=== PATIENT | female | born 1950 | race Caucasian/White ===

== ENCOUNTER → 2017-02-25 | Outpatient (CLI) | payer MEDICARE, MEDICAID | LOC: WI 10:11 | PROVIDERS: ATTEND Internal Medicine | DX: Z12.31 Encounter for screening mammogram for malignant neoplasm of breast (principal) | CPT/HCPCS: 77067; G0202 ==

== ENCOUNTER → 2017-03-11 | Outpatient (CLI) | payer MEDICARE, MEDICAID | LOC: RAD 09:41 | PROVIDERS: ATTEND Orthopaedic Surgery | DX: M54.2 Cervicalgia (principal); M79.671 Pain in right foot; M25.551 Pain in right hip | CPT/HCPCS: 78306; A9503; Q9969 ==

== ENCOUNTER 2017-03-17 05:41 | Observation (INO) | payer MEDICARE, MEDICAID ==
[2017-03-17] MEDS ORDERED: ASPIRIN 81 MG TABLET, CHEWABLE PO ONE (05:42)
[2017-03-17 06:14] LABS: ABSOLUTE BASOPHILS # (AUTO) 0.1 10^3/uL (0.0-0.2); ABSOLUTE EOSINOPHILS # (AUTO) 0.4 10^3/uL (0.0-0.6); ABSOLUTE LYMPHOCYTES (AUTO) 1.8 10^3/uL (0.5-4.7); ABSOLUTE MONOCYTES (AUTO) 0.6 10^3/uL (0.1-1.4); ABSOLUTE NEUT (AUTO) 3.3 10^3/uL (1.7-8.2); BASOPHILS % (AUTO) 0.8 % (0-2); EOSINOPHILS % (AUTO) 6.5 % (0-6); HEMATOCRIT 35.5 % (36.0-47.0); HEMOGLOBIN 11.8 g/dL (12.0-15.5); HGB HCT DIFFERENCE -0.1; LYMPHOCYTES % (AUTO) 28.5 % (13-45); MEAN CORPUSCULAR HEMOGLOBIN 29.4 pg (27.0-33.4); MEAN CORPUSCULAR HGB CONC 33.1 g/dL (32.0-36.0); MEAN CORPUSCULAR VOLUME 89 fl (80-97); RED CELL DISTRIBUTION WIDTH 12.8 % (11.5-14.0); SEGMENTED NEUTROPHILS % (AUTO) 54.2 % (42-78); WHITE BLOOD COUNT 6.2 10^3/uL (4.0-10.5)
[2017-03-17 06:21] LABS: PROTHROMBIN TIME 13.7 SEC (11.4-15.4)
[2017-03-17] MEDS ORDERED: MAG HYDROX/AL HYDROX/SIMETH SUSP 30 ML UDCUP PO ONE (06:28)
[2017-03-17] MEDS ORDERED: METOCLOPRAMIDE HCL ORAL SOLN 10 MG/10 ML UDCUP PO ONE (06:28)
[2017-03-17] MEDS ORDERED: LIDOCAINE 2% VISCOUS SOLN 20 ML UDCUP PO ONE (06:28)
[2017-03-17 06:36] LABS: ALANINE AMINOTRANSFERASE 33 U/L (9-52); ALBUMIN 3.6 g/dL (3.5-5.0); ALKALINE PHOSPHATASE 83 U/L (38-126); ANION GAP 12 (5-19); ASPARTATE AMINO TRANSFERASE 42 U/L (14-36); BILIRUBIN,DIRECT 0.3 mg/dL (0.0-0.4); BILIRUBIN,TOTAL 0.5 mg/dL (0.2-1.3); BLOOD UREA NITROGEN 18 mg/dL (7-20); CALCIUM 9.1 mg/dL (8.4-10.2); CARBON DIOXIDE 25 mmol/L (22-30); CHLORIDE 107 mmol/L (98-107); CREATINE KINASE 267 U/L (30-135); CREATININE RESULT 0.74 mg/dL (0.52-1.25); GLUCOSE 103 mg/dL (75-110); POTASSIUM 3.3 mmol/L (3.6-5.0); SODIUM 144.2 mmol/L (137-145); TOTAL PROTEIN 6.1 g/dL (6.3-8.2)
[2017-03-17 06:37] LABS: LIPASE 91.9 U/L (23-300); MAGNESIUM 2.1 mg/dL (1.6-2.3)
--- NOTE | 2017-03-17 06:37 | ER Document Report ---
ED General - General Chief Complaint: Leg Pain Stated Complaint: CHEST PAIN TRAVEL OUTSIDE OF THE [place] IN LAST 30 DAYS: No - HPI Patient complains to provider of: left chest pressure Notes: Patient presents today for evaluation of left chest pressure. Patient states the pain woke her up from sleep. Patient is unaware what time she was awoken the states is been approximately greater than hour. Denies a history for problems in the past. The stay she's had stress testing has been negative performed by local temporary data entry clerk Dr. Moura however this is been many years ago. Patient does state she has an arrhythmia but is on no medications for it. Patient does have a history of acid reflux recent EGD and colonoscopy patient also has a history of bipolar disease with schizophrenia. Patient is also complaining of right leg pain. Patient is unclear she has a history of DVT or PE in the past. Quick review the patient's past medical history does show history of DVT. Otherwise patient states no relief of Nitropaste is in no obvious distress upon my evaluation. - Related Data Allergies/Adverse Reactions: divalproex sodium [From Depakote] Allergy (Intermediate, Verified 07/11/16 15:53 ) swelling of ankles/feet hydroxyzine pamoate [From Vistaril] Allergy (Intermediate, Verified 07/11/16 15: 53) rash/itch nalbuphine HCl [From Nubain] Allergy (Intermediate, Verified 07/11/16 15:53) rash/itch levofloxacin [From Levaquin] Allergy (Mild, Verified 07/11/16 15:53) itch/reddness Past Medical History - Social History Smoking Status: Unknown if Ever Smoked Chew tobacco use (# tins/day): No Frequency of alcohol use: None Drug Abuse: None Family History: Arthritis, CAD, CVA, DM, Hyperlipidemia, Hypertension, Malignancy, Thyroid Disfunction - Past Medical History Cardiac Medical History: Reports: Hx Atrial Fibrillation - Dx 2005, denies Rx, Cardiac note, Dr Moura does not include A fib Dx, Hx DVT, Hx Hypercholesterolemia, Hx Hypertension - NO MEDS PRESENTLY SINCE 2013 Denies: Hx Congestive Heart Failure, Hx Coronary Artery Disease, Hx Heart Attack, Hx Peripheral Vascular Disease, Hx Pulmonary Embolism, Hx Heart Murmur Pulmonary Medical History: Reports: Hx Asthma, Hx Bronchitis, Hx COPD - Dx'ed > 14 years ago, however in [place] refured Dx in May 2013, 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 Denies: Hx Cerebrovascular Accident, Hx Seizures Renal/ Medical History: Denies: Hx End Stage Renal Disease, Hx Kidney Stones, Hx Peritoneal Dialysis Malignancy Medical History: Denies: Hx Leukemia, Hx Lung Cancer GI Medical History: Reports: Hx Gastroesophageal Reflux Disease. Denies: Hx Crohn's Disease - denies, Hx Hepatitis, Hx Hiatal Hernia, Hx Irritable Bowel, Hx Liver Failure, Hx Ulcer Musculoskeltal Medical History: Reports Hx Arthritis, Denies Hx Fibromyalgia, Denies Hx Muscular Dystrophy, Reports Hx Musculoskeletal Deformity, Reports Hx Musculoskeletal Trauma Psychiatric Medical History: Reports: Hx Bipolar Disorder - Dx'ed 1993, Hx Depression, Hx Schizophrenia - Dx'ed 1999 Denies: Hx Post Traumatic Stress Disorder Traumatic Medical History: Denies: Hx Fractures Infectious Medical History: Denies: Hx Hepatitis, Hx HIV Past Surgical History: Reports: Hx Abdominal Surgery - 2 HERNIA REPAIRS, Hx Appendectomy - incidental with gastric bypass, Hx Gastric Bypass Surgery - 1985 , revision 2009, Hx Herniorrhaphy - multiple ventral/umbilical, mesh inserted with last surgical intervention, Hx Nose Surgery, Hx Open Heart Surgery - CATHS X 2, Hx Orthopedic Surgery - back, shoulder, bilateral knee replacement. Denies : Hx Bowel Surgery, Hx Section, Hx Cholecystectomy, Hx Colostomy, Hx Coronary Artery Bypass Graft, Hx Hysterectomy, Hx Mastectomy, Hx Pacemaker, Hx Tonsillectomy, Hx Tubal Ligation - Immunizations Immunizations up to date: Yes Hx Diphtheria, Pertussis, Tetanus Vaccination: No Hx Pneumococcal Vaccination: 12/01/10 Review of Systems - Review of Systems Constitutional: No symptoms reported EENT: No symptoms reported Cardiovascular: Chest pain Respiratory: No symptoms reported Gastrointestinal: No symptoms reported Genitourinary: No symptoms reported Female Genitourinary: No symptoms reported Musculoskeletal: No symptoms reported Skin: No symptoms reported Hematologic/Lymphatic: No symptoms reported Neurological/Psychological: No symptoms reported -: Yes All other systems reviewed and negative Physical Exam - Vital signs Vitals: Temp Resp Pulse Ox 98.7 F 13 95 03/17/17 05:46 03/17/17 05:46 03/17/17 05:46 Interpretation: Normal - General General appearance: Appears well, Alert - HEENT Head: Normocephalic, Atraumatic Eyes: Normal Pupils: PERRL - Respiratory Respiratory status: No respiratory distress Chest status: Tender - Tenderness to palpation of the chest Breath sounds: Normal Chest palpation: Normal - Cardiovascular Rhythm: Regular Heart sounds: Normal auscultation Murmur: No - Abdominal Inspection: Normal Distension: No distension Bowel sounds: Normal Tenderness: Nontender Organomegaly: No organomegaly - Back Back: Normal, Nontender - Extremities General upper extremity: Normal inspection, Nontender, Normal color, Normal ROM , Normal temperature General lower extremity: Normal inspection, Nontender, Normal color, Normal ROM , Normal temperature, Normal weight bearing, Other - There is no size discrepancy edema bilateral 1+. Patient does have tenderness to palpation of the right calf. - Neurological Neuro grossly intact: Yes Cognition: Normal Orientation: AAOx4 Gerry Coma Scale Eye Opening: Spontaneous [place] Coma Scale Verbal: Oriented [place] Coma Scale Motor: Obeys Commands Gerry Coma Scale Total: 15 Speech: Normal Motor strength normal: LUE, RUE, LLE, RLE Sensory: Normal - Psychological Associated symptoms: Normal affect, Normal mood - Skin Skin Temperature: Warm Skin Moisture: Dry Skin Color: Normal Course - Re-evaluation Re-evalutation: 03/17/17 08:43 EKG shows no acute pathology. Troponins negative. Patient's d-dimer was elevated therefore due to the patient's complaint of chest pain and leg pain patient with a CTA abdomen. This was both negative. Patient will be admitted I did discuss with her PCP Dr. Prado - Vital Signs Vital signs: Temp Pulse Resp BP Pulse Ox 98.7 F 16 134/76 H 100 03/17/17 05:46 03/17/17 07:21 03/17/17 07:21 03/17/17 07:21 - Laboratory Result Diagrams: 03/17/17 06:00 03/17/17 06:00 Laboratory results interpreted by me: 03/17/17 03/17/17 03/17/17 06:00 06:00 06:00 Hgb 11.8 L Hct 35.5 L Eosinophils % 6.5 H D-Dimer 0.80 H Potassium 3.3 L AST 42 H Creatine Kinase 267 H Total Protein 6.1 L Discharge - Discharge Clinical Impression: Right leg pain, Hypokalemia Chest pain Qualifiers: Chest pain type: unspecified Qualified Code(s): R07.9 - Chest pain, unspecified Condition: Fair Disposition: ADMITTED OBSERVATION Admitting Provider: Avinash Unit Admitted: Telemetry Referrals: SIMEON PRADO MD [Primary Care Provider] - Follow up as needed
[2017-03-17 06:49] LABS: TROPONIN I < 0.012 ng/mL
[2017-03-17] MEDS ORDERED: POTASSIUM CHLORIDE 10 MEQ TABLET.SA PO ONE (07:05)
--- NOTE | 2017-03-17 08:44 | EKG REPORT ---
SEVERITY:- ABNORMAL ECG - SINUS ARRHYTHMIA, RATE 56-97 BORDERLINE LEFT AXIS DEVIATION CONSIDER ANTERIOR INFARCT BORDERLINE T ABNORMALITIES, ANTERIOR LEADS : Confirmed by: Any Fuller 17-Mar-2017 08:43:28
[2017-03-17 08:48] LABS: APPEARANCE,URINE CLEAR; BILIRUBIN,URINE NEGATIVE (NEGATIVE); GLUCOSE, URINE NEGATIVE (NEGATIVE); KETONES,URINE NEGATIVE (NEGATIVE); LEUKOCYTE ESTERASE,URINE SMALL (NEGATIVE); NITRITE,URINE NEGATIVE (NEGATIVE); PROTEIN,URINE NEGATIVE (NEGATIVE); URINE SPECIFIC GRAVITY 1.005; UROBILINOGEN,URINE NEGATIVE mg/dL (<2.0)
[2017-03-17 08:49] LABS: URINE BARBITURATES SCREEN NEGATIVE; URINE METHADONE SCREEN NEGATIVE; URINE OPIATES LOW NEGATIVE; URINE PHENCYCLIDINE SCREEN NEGATIVE
--- NOTE | 2017-03-17 12:08 | XCELERA REPORT ---
[address] [address] Lower Extremity Venous Evaluation Name: DANNY BAPTISTE Age: 67 yrs Gender: Female : 1950 Patient Status: Emergency Patient Location: ER Study Date: 03/17/2017 08:22 AM Procedure: Color flow and duplex imaging of the veins of the right lower extremity as well as the left Common Femoral vein. Reason For Study: pain right leg / Hx clots Ordering Physician: JAYNE MORALES Performed By: Allen Barrientos Right Sided Venous Evaluation Subcutaneous edema noted. Normal vessel filling wall to wall, compression and augmentation as well as Colour flow down to the infrageniculate veins. Left Sided Venous Evaluation The left common femoral vein is fully compressible. Spontaneous and phasic flow is present in the left common femoral vein. Interpretation Summary No duplex evidence of DVT or obstruction in the right lower extremity nor in the left Common Femoral vein. : JAYNE MORALES > Kb Garcia
[2017-03-17] MEDS ORDERED: HYDROCODONE/ACETAMINOPHEN 5-325 MG TABLET PO ONE (15:45)
[2017-03-17] MEDS ORDERED: OXYCODONE HCL IR 5 MG TABLET PO ONE (15:45)
[2017-03-17] MEDS ORDERED: HYDROCODONE/ACETAMINOPHEN 10-325 MG TABLET ONE (16:11)
[2017-03-17] MEDS ORDERED: HYDROCODONE/ACETAMINOPHEN 10-325 MG TABLET PO ONE (16:15)
[2017-03-17] MEDS ORDERED: ALBUTEROL SULFATE HFA (90 MCG/PUFF) 8 GM MDI (1 MDI/ER DISP) IH PRN (19:50)
[2017-03-17] MEDS ORDERED: (PENDING PHARMACY ID) (Oxycodone Hcl/Acetaminophen [Percocet 10-325 Mg Tablet] 1 TAB) PO PRN (19:50)
--- NOTE | 2017-03-17 19:50 | PDOC H&P ---
History of Present Illness Admission Date/PCP: 03/17/17 14:34 SIMEON PRADO MD History of Present Illness: DANNY BAPTISTE is a 67 year old female, she has history of generalized osteoarthritis with bilateral knee replacement, hip replacement and shoulder replacement she can emergency room because of chest pain ,leg pain emergency room she had CTA chest done which was negative for pulmonary embolus she also had venous Doppler done and it was negative for DVT. The emergency room physician want her admitted because of the chest pain to rule out acute coronary syndrome , very unlikely in this case Past Medical History Cardiac Medical History: Reports: Atrial Fibrillation - Dx 2005, denies Rx, Cardiac note, Dr Moura does not include A fib Dx, DVT, Hyperlipidema, Hypertension - NO MEDS PRESENTLY SINCE 2013 Pulmonary Medical History: Reports: Asthma, Bronchitis, Chronic Obstructive Pulmonary Disease (COPD) - Dx'ed > 14 years ago, however MD in [place] refured Dx in May 2013, Tuberculosis - +PPD r/t exposure to [id number] with TB, meds x 6 months 1980 Neurological Medical History: Reports: Migraine GI Medical History: Reports: Gastroesophageal Reflux Disease Musculoskeltal Medical History: Reports: Arthritis Psychiatric Medical History: Reports: Bipolar Disorder - Dx'ed 1993, Depression Hematology: Reports: Anemia Past Surgical History Past Surgical History: Reports: Appendectomy - incidental with gastric bypass, Gastric Bypass Surgery - 1985, revision 2009, Herniorrhaphy - multiple ventral/ umbilical, mesh inserted with last surgical intervention, Orthopedic Surgery - back, shoulder, bilateral knee replacement Social History Smoking Status: Never Smoker Frequency of Alcohol Use: Rare Hx Recreational Drug Use: No Hx Prescription Drug Abuse: No Family History Family History: Arthritis, CAD, CVA, DM, Hyperlipidemia, Hypertension, Malignancy, Thyroid Disfunction Parental Family History Reviewed: Yes Children Family History Reviewed: Yes Sibling(s) Family History Reviewed.: Yes Medication/Allergy Home Medications: Albuterol Sulfate [Ventolin HFA MDI 18 GM] 2 puff IH Q4HP PRN 03/17/17 Alprazolam [Xanax 0.5 mg Tablet] 0.5 mg PO BID 03/17/17 Atorvastatin Calcium [Lipitor 10 mg Tablet] 10 mg PO QPM 03/17/17 Cholecalciferol (Vitamin D3) [Vitamin D3 1000 Unit Tablet] 1,000 unit PO DAILY 03/17/17 Cyclosporine 0.05% Oph Emulsio [Restasis 0.05% Oph Emulsion Pf 0.4 ml] 1 drop OU BID 03/17/17 Diflucan/Lidocaine 1 applic TOP DAILYP PRN 03/17/17 Diphenhydramine HCl [Wal-Sleep Z] 25 mg PO TIDP PRN 03/17/17 Fluoxetine HCl [Prozac 20 mg Capsule] 20 mg PO QAM 03/17/17 Furosemide [Lasix] 40 mg PO DAILY 03/17/17 Gabapentin [Neurontin 300 mg Capsule] 300 mg PO Q8 03/17/17 Levetiracetam [Keppra 500 mg Tablet] 500 mg PO Q12 03/17/17 Oxycodone HCl/Acetaminophen [Percocet 10-325 mg Tablet] 1 tab PO Q6HP PRN Pantoprazole Sodium [Protonix] 40 mg PO QAM 03/17/17 Potassium Chloride [K-Tab ER] 20 meq PO DAILY 03/17/17 Topiramate [Topamax 100 mg Tablet] 100 mg PO QAM 03/17/17 Allergies/Adverse Reactions: divalproex sodium [From Depakote] Allergy (Intermediate, Verified 07/11/16 15:53 ) swelling of ankles/feet hydroxyzine pamoate [From Vistaril] Allergy (Intermediate, Verified 07/11/16 15: 53) rash/itch nalbuphine HCl [From Nubain] Allergy (Intermediate, Verified 07/11/16 15:53) rash/itch levofloxacin [From Levaquin] Allergy (Mild, Verified 07/11/16 15:53) itch/reddness Review of Systems Constitutional: ABSENT: chills, fever(s), headache(s), weight gain, weight loss Eyes: ABSENT: visual disturbances Ears: ABSENT: hearing changes Cardiovascular: PRESENT: chest pain Respiratory: ABSENT: cough, hemoptysis Gastrointestinal: ABSENT: abdominal pain, constipation, diarrhea, hematemesis, hematochezia, nausea, vomiting Genitourinary: ABSENT: dysuria, hematuria Musculoskeletal: ABSENT: joint swelling Integumentary: ABSENT: rash, wounds Neurological: ABSENT: abnormal gait, abnormal speech, confusion, dizziness, focal weakness, syncope Psychiatric: ABSENT: anxiety, depression, homidical ideation, suicidal ideation Endocrine: ABSENT: cold intolerance, heat intolerance, menstrual abnormalities, polydipsia, polyuria Hematologic/Lymphatic: ABSENT: easy bleeding, easy bruising, lymphadenopathy Physical Exam Vital Signs: Temp Pulse Resp BP Pulse Ox 98.6 F 72 20 135/69 H 100 03/17/17 18:44 03/17/17 18:44 03/17/17 18:44 03/17/17 18:44 03/17/17 18:44 Intake & Output 03/16/17 03/17/17 03/18/17 06:59 06:59 06:59 Weight 91.1 kg General appearance: PRESENT: no acute distress, well-developed, well-nourished Head exam: PRESENT: atraumatic, normocephalic Eye exam: PRESENT: conjunctiva pink, EOMI, PERRLA. ABSENT: scleral icterus Ear exam: PRESENT: normal external ear exam Mouth exam: PRESENT: moist, tongue midline Neck exam: PRESENT: full ROM Respiratory exam: PRESENT: clear to auscultation miguel Cardiovascular exam: PRESENT: RRR, +S1, +S2 Pulses: PRESENT: normal dorsalis pedis pul, +2 pedal pulses bilateral Vascular exam: PRESENT: normal capillary refill GI/Abdominal exam: PRESENT: normal bowel sounds, soft Rectal exam: PRESENT: deferred Neurological exam: PRESENT: alert, awake, oriented to person, oriented to place , oriented to time, oriented to situation, CN II-XII grossly intact Psychiatric exam: PRESENT: appropriate affect, normal mood Skin exam: PRESENT: dry, intact, warm Results Impressions: Chest X-Ray 03/17/17 05:42 IMPRESSION: NO ACUTE RADIOGRAPHIC FINDING IN THE CHEST. Chest/Abdomen CTA 03/17/17 07:04 IMPRESSION: No acute thoracic abnormality. Specifically, no evidence of pulmonary embolus or lung infiltrate. Assessment & Plan - Diagnosis (1) Chest pain Qualifiers: Chest pain type: unspecified Qualified Code(s): R07.9 - Chest pain, unspecified Is this a current diagnosis for this admission?: YesPlan: She is not she is admitted for observation and management
[2017-03-17] MEDS ORDERED: OXYCODONE HCL IR 5 MG TABLET PO PRN (20:47)
[2017-03-17] MEDS: ATORVASTATIN CALCIUM 10 MG TABLET PO SCH (22:45)
[2017-03-17] MEDS: GABAPENTIN 300 MG CAPSULE PO SCH (22:45)
[2017-03-17] MEDS: ALPRAZOLAM 0.5 MG TABLET PO SCH (22:45)
[2017-03-17] MEDS: LEVETIRACETAM 500 MG TABLET PO SCH (22:45)
[2017-03-17] MEDS: OXYCODONE-ACETAMINOPHEN 5-325 MG TABLET PO PRN (22:45)
[2017-03-17] MEDS: POTASSI CL 20 MEQ/NS 1L 1,000 ML IV PRN (23:58)
[2017-03-18] MEDS: GABAPENTIN 300 MG CAPSULE PO SCH ×3 (05:43→21:10)
[2017-03-18] MEDS: OXYCODONE-ACETAMINOPHEN 5-325 MG TABLET PO PRN ×3 (05:47→21:10)
[2017-03-18] MEDS: ALPRAZOLAM 0.5 MG TABLET PO SCH ×2 (09:10→21:09)
[2017-03-18] MEDS: CYCLOSPORINE 0.05% OPH EMULSIO 0.4 ML DROPERETTE OU SCH ×2 (09:10→17:19)
[2017-03-18] MEDS: FLUOXETINE HCL 20 MG CAPSULE PO SCH (09:10)
[2017-03-18] MEDS: CHOLECALCIFEROL (D3) 1,000 UNIT TABLET PO SCH (09:10)
[2017-03-18] MEDS: TOPIRAMATE 100 MG TABLET PO SCH (09:10)
[2017-03-18] MEDS: LANSOPRAZOLE 30 MG TAB.RAP.DR PO SCH (09:11)
[2017-03-18] MEDS: LEVETIRACETAM 500 MG TABLET PO SCH ×2 (09:11→21:09)
[2017-03-18] MEDS: POTASSI CL 20 MEQ/NS 1L 1,000 ML IV PRN (13:44)
[2017-03-18 15:11] LABS: ALANINE AMINOTRANSFERASE 29 U/L (9-52); ALBUMIN 3.9 g/dL (3.5-5.0); ALKALINE PHOSPHATASE 80 U/L (38-126); ANION GAP 10 (5-19); ASPARTATE AMINO TRANSFERASE 30 U/L (14-36); BILIRUBIN,DIRECT 0.1 mg/dL (0.0-0.4); BILIRUBIN,TOTAL 0.4 mg/dL (0.2-1.3); BLOOD UREA NITROGEN 8 mg/dL (7-20); CALCIUM 9.5 mg/dL (8.4-10.2); CARBON DIOXIDE 24 mmol/L (22-30); CHLORIDE 111 mmol/L (98-107); CREATININE RESULT 0.72 mg/dL (0.52-1.25); GLUCOSE 119 mg/dL (75-110); POTASSIUM 4.6 mmol/L (3.6-5.0); SODIUM 145.1 mmol/L (137-145); TOTAL PROTEIN 6.2 g/dL (6.3-8.2)
[2017-03-18] MEDS: ATORVASTATIN CALCIUM 10 MG TABLET PO SCH (21:10)
[2017-03-19] MEDS: OXYCODONE-ACETAMINOPHEN 5-325 MG TABLET PO PRN ×3 (04:08→18:05)
[2017-03-19] MEDS: POTASSI CL 20 MEQ/NS 1L 1,000 ML IV PRN (04:15)
[2017-03-19] MEDS: GABAPENTIN 300 MG CAPSULE PO SCH ×2 (05:19→14:45)
[2017-03-19] MEDS: TOPIRAMATE 100 MG TABLET PO SCH (07:39)
[2017-03-19] MEDS: LANSOPRAZOLE 30 MG TAB.RAP.DR PO SCH (09:34)
[2017-03-19] MEDS: CHOLECALCIFEROL (D3) 1,000 UNIT TABLET PO SCH (09:34)
[2017-03-19] MEDS: ALPRAZOLAM 0.5 MG TABLET PO SCH (09:34)
[2017-03-19] MEDS: LEVETIRACETAM 500 MG TABLET PO SCH (09:34)
[2017-03-19] MEDS: FLUOXETINE HCL 20 MG CAPSULE PO SCH (09:34)
[2017-03-19] MEDS: CYCLOSPORINE 0.05% OPH EMULSIO 0.4 ML DROPERETTE OU SCH ×2 (09:35→17:22)
--- NOTE | 2017-03-19 14:27 | PDOC DISCHARGE SUMMARY ---
General - Admit/Disc Date/PCP Admission Date/Primary Care Provider: 03/17/17 14:34 SIMEON PRADO MD Discharge Date: 03/19/17 - Discharge Diagnosis (1) Chest pain Is this a current diagnosis for this admission?: Yes - Additional Information Discharge Diet: As Tolerated Discharge Activity: Activity As Tolerated Home Medications: Albuterol Sulfate [Ventolin HFA MDI 18 GM] 2 puff IH Q4HP PRN 03/17/17 Alprazolam [Xanax 0.5 mg Tablet] 0.5 mg PO BID 03/17/17 Atorvastatin Calcium [Lipitor 10 mg Tablet] 10 mg PO QPM 03/17/17 Cholecalciferol (Vitamin D3) [Vitamin D3 1000 Unit Tablet] 1,000 unit PO DAILY 03/17/17 Cyclosporine 0.05% Oph Emulsio [Restasis 0.05% Oph Emulsion Pf 0.4 ml] 1 drop OU BID 03/17/17 Fluoxetine HCl [Prozac 20 mg Capsule] 20 mg PO QAM 03/17/17 Furosemide [Lasix] 40 mg PO DAILY 03/17/17 Gabapentin [Neurontin 300 mg Capsule] 300 mg PO Q8 03/17/17 Levetiracetam [Keppra 500 mg Tablet] 500 mg PO Q12 03/17/17 Oxycodone HCl/Acetaminophen [Percocet 10-325 mg Tablet] 1 tab PO Q6HP PRN Pantoprazole Sodium [Protonix] 40 mg PO QAM 03/17/17 Potassium Chloride [K-Tab ER] 20 meq PO DAILY 03/17/17 Topiramate [Topamax 100 mg Tablet] 100 mg PO QAM 03/17/17 History of Present Illness History of Present Illness: DANNY BAPTISTE is a 67 year old female, she has history of generalized osteoarthritis with bilateral knee replacement, hip replacement and shoulder replacement she can emergency room because of chest pain ,leg pain emergency room she had CTA chest done which was negative for pulmonary embolus she also had venous Doppler done and it was negative for DVT. The emergency room physician want her admitted because of the chest pain to rule out acute coronary syndrome , very unlikely in this case Hospital Course Hospital Course: Patient was admitted because of chest pain, 3 sets of cardiac enzymes were negative for acute LA Physical Exam Vital Signs: Temp Pulse Resp BP Pulse Ox 98.7 F 82 16 143/78 H 98 03/19/17 11:07 03/19/17 14:00 03/19/17 11:07 03/19/17 11:07 03/19/17 11:07 Intake & Output 03/18/17 03/19/17 03/20/17 06:59 06:59 06:59 Intake Total 620 3209 Output Total 900 2650 Balance -280 559 Weight 93.4 kg 93.1 kg General appearance: PRESENT: no acute distress Eye exam: PRESENT: PERRLA Respiratory exam: PRESENT: clear to auscultation miguel Cardiovascular exam: PRESENT: +S1, +S2 GI/Abdominal exam: PRESENT: soft Neurological exam: PRESENT: alert Results Laboratory Results: 03/18/17 14:31 03/18/17 14:31 Sodium 145.1 H Potassium 4.6 Chloride 111 H Carbon Dioxide 24 Anion Gap 10 BUN 8 Creatinine 0.72 Est GFR ( Amer) > 60 Est GFR (Non-Af Amer) > 60 Glucose 119 H Calcium 9.5 Total Bilirubin 0.4 AST 30 ALT 29 Alkaline Phosphatase 80 Total Protein 6.2 L Albumin 3.9 03/18/17 15:15 Nasophary (Mrsa Only) MRSA Surveillance Culture - Final MRSA RECOVERED Impressions: Chest X-Ray 03/17/17 05:42 IMPRESSION: NO ACUTE RADIOGRAPHIC FINDING IN THE CHEST. Chest/Abdomen CTA 03/17/17 07:04 IMPRESSION: No acute thoracic abnormality. Specifically, no evidence of pulmonary embolus or lung infiltrate.
[2017-03-19] MEDS ORDERED: ALBUTEROL SULFATE HFA (90 MCG/PUFF) 200 PUFF/8.5 GM MDI IH PRN (17:00)
[2017-03-19 17:54] VITALS: BP 133/77
== END 2017-03-19 18:57 | disposition home health service (06) ==
LOC: ER 05:41 → UNDOADMOB 08:51 → EH 08:51 → 4S 11:09 → EH 11:09 → 4S 14:34
PROVIDERS: ADMIT Internal Medicine; ATTEND Internal Medicine
DX: R07.89 Other chest pain (principal); M15.9 Polyosteoarthritis, unspecified; M79.604 Pain in right leg; R60.9 Edema, unspecified; E87.6 Hypokalemia; J45.909 Unspecified asthma, uncomplicated; Z96.653 Presence of artificial knee joint, bilateral; Z96.649 Presence of unspecified artificial hip joint; Z86.11 Personal history of tuberculosis; Z98.84 Bariatric surgery status; Z90.49 Acquired absence of other specified parts of digestive tract; Z82.49 Family history of ischemic heart disease and other diseases of the circulatory system; Z79.899 Other long term (current) drug therapy; Z96.612 Presence of left artificial shoulder joint; Z96.611 Presence of right artificial shoulder joint; Z98.890 Other specified postprocedural states; Z80.9 Family history of malignant neoplasm, unspecified
CPT/HCPCS: 93005; 99285; 36415 ×2; 82553; 82962; 82550; 83690; 83735; 85025; 85610; 80053 ×2; 81001; 84484; 80307; 85379; 83880; 93971 ×2; 71010; 71275; 93010; A9270 ×26; J3490; J3480 ×3; G0378

== ENCOUNTER 2017-03-24 12:43 | Emergency (ER) | payer MEDICARE, MEDICAID ==
[2017-03-24] MEDS ORDERED: MECLIZINE HCL 25 MG TABLET PO ONE (14:37)
--- NOTE | 2017-03-24 14:37 | ER Document Report ---
ED Medical Screen (RME) - General Chief Complaint: Pain All Over Stated Complaint: FALL RIGHT HIP PAIN Mode of Arrival: Wheelchair Information source: Patient Notes: 67-year-old female presents with very vague complaints of neck pain or vertigo hip pain. Patient's presenting complaint was trip and fall however she did not provide this information to me, but fact speaks about her neck injury from 1984. I am unable to determine the patient's specific complaints lab work has been ordered I have greeted and performed a rapid initial assessment of this patient. A comprehensive ED assessment and evaluation of the patient, analysis of test results and completion of the medical decision making process will be conducted by additional ED providers. PHYSICAL EXAMINATION: GENERAL: Patient in wheelchair holding head complaining of vertigo HEAD: Atraumatic, normocephalic. EYES: Pupils equal round extraocular movements intact, conjunctiva are normal. ENT: Nares patent NECK: Normal range of motion LUNGS: No respiratory distress Musculoskeletal: Mild hip pain right foot in boot NEUROLOGICAL: Normal speech, normal gait. PSYCH: Normal mood, normal affect. SKIN: Warm, Dry, normal turgor, no rashes or lesions noted. TRAVEL OUTSIDE OF THE [place] IN LAST 30 DAYS: No - Related Data Allergies/Adverse Reactions: divalproex sodium [From Depakote] Allergy (Intermediate, Verified 07/11/16 15:53 ) swelling of ankles/feet hydroxyzine pamoate [From Vistaril] Allergy (Intermediate, Verified 07/11/16 15: 53) rash/itch nalbuphine HCl [From Nubain] Allergy (Intermediate, Verified 07/11/16 15:53) rash/itch levofloxacin [From Levaquin] Allergy (Mild, Verified 07/11/16 15:53) itch/reddness Past Medical History - Past Medical History Cardiac Medical History: Reports: Hx Atrial Fibrillation - Dx 2005, denies Rx, Cardiac note, Dr Moura does not include A fib Dx, Hx DVT, Hx Hypercholesterolemia, Hx Hypertension - NO MEDS PRESENTLY SINCE 2013 Denies: Hx Congestive Heart Failure, Hx Coronary Artery Disease, Hx Heart Attack, Hx Peripheral Vascular Disease, Hx Pulmonary Embolism, Hx Heart Murmur Pulmonary Medical History: Reports: Hx Asthma, Hx Bronchitis, Hx COPD - Dx'ed > 14 years ago, however in [place] refured Dx in May 2013, 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 Denies: Hx Cerebrovascular Accident, Hx Seizures Renal/ Medical History: Denies: Hx End Stage Renal Disease, Hx Kidney Stones, Hx Peritoneal Dialysis Malignancy Medical History: Denies: Hx Leukemia, Hx Lung Cancer GI Medical History: Reports: Hx Gastroesophageal Reflux Disease. Denies: Hx Crohn's Disease - denies, Hx Hepatitis, Hx Hiatal Hernia, Hx Irritable Bowel, Hx Liver Failure, Hx Ulcer Musculoskeltal Medical History: Reports Hx Arthritis, Denies Hx Fibromyalgia, Denies Hx Muscular Dystrophy, Reports Hx Musculoskeletal Deformity, Reports Hx Musculoskeletal Trauma Psychiatric Medical History: Reports: Hx Bipolar Disorder - Dx'ed 1993, Hx Depression, Hx Schizophrenia - Dx'ed 1999 Denies: Hx Post Traumatic Stress Disorder Traumatic Medical History: Denies: Hx Fractures Infectious Medical History: Denies: Hx Hepatitis, Hx HIV Past Surgical History: Reports: Hx Abdominal Surgery - 2 HERNIA REPAIRS, Hx Appendectomy - incidental with gastric bypass, Hx Gastric Bypass Surgery - 1985 , revision 2009, Hx Herniorrhaphy - multiple ventral/umbilical, mesh inserted with last surgical intervention, Hx Nose Surgery, Hx Open Heart Surgery - CATHS X 2, Hx Orthopedic Surgery - back, shoulder, bilateral knee replacement. Denies : Hx Bowel Surgery, Hx Section, Hx Cholecystectomy, Hx Colostomy, Hx Coronary Artery Bypass Graft, Hx Hysterectomy, Hx Mastectomy, Hx Pacemaker, Hx Tonsillectomy, Hx Tubal Ligation - Immunizations Immunizations up to date: Yes Hx Diphtheria, Pertussis, Tetanus Vaccination: No Physical Exam - Vital signs Vitals: Temp Pulse Resp BP Pulse Ox 97.7 F 81 18 142/89 H 89 L 03/24/17 13:35 03/24/17 13:35 03/24/17 13:35 03/24/17 13:35 03/24/17 13:35 Course - Vital Signs Vital signs: Temp Pulse Resp BP Pulse Ox 97.7 F 81 18 142/89 H 89 L 03/24/17 13:35 03/24/17 13:35 03/24/17 13:35 03/24/17 13:35 03/24/17 13:35
--- NOTE | 2017-03-24 15:45 | ER Document Report ---
ED General - General Chief Complaint: Pain All Over Stated Complaint: FALL RIGHT HIP PAIN Mode of Arrival: Wheelchair Information source: Patient, Emergency Med Personnel Notes: Patient presents to the emergency department with complaints of right hip pain. Patient reports she tripped over some dogs and fell a few nights ago hurting her right hip. She reports she was just discharged from the hospital on Friday. She discusses how she declined homehealth help but when she arrived home she decided she wanted help. She left a message at Dr Avery office. She is wearing a walking boot on her right foot. Pt reports Dr Abraham has her wear it for arthritis. Patient was picked up by EMS and brought to the emergency department. EMS notes report the patient has a psych history and family is not willing to take her back. They report the patient's very aggressive behavior to the family this past weekend. Report that pt is not taking her medication for bipolar. Patient reports to me that she lives alone and has no problems with her family. Patient denies any other symptoms except right hip pain. Patient gives conflicting stories on why she is here to the nurse the PCT. She declined all labs and interventions. Mental health evaluation requested. TRAVEL OUTSIDE OF THE [place] IN LAST 30 DAYS: No - HPI Onset: Yesterday Onset/Duration: Sudden Quality of pain: Achy Severity: Mild Pain Level: 1 Associated symptoms: None Exacerbated by: Movement Relieved by: Denies Similar symptoms previously: No Recently seen / treated by doctor: Yes - recently discharged from the hospital - Related Data Allergies/Adverse Reactions: divalproex sodium [From Depakote] Allergy (Intermediate, Verified 07/11/16 15:53 ) swelling of ankles/feet hydroxyzine pamoate [From Vistaril] Allergy (Intermediate, Verified 07/11/16 15: 53) rash/itch nalbuphine HCl [From Nubain] Allergy (Intermediate, Verified 07/11/16 15:53) rash/itch levofloxacin [From Levaquin] Allergy (Mild, Verified 07/11/16 15:53) itch/reddness Past Medical History - General Information source: Patient - Social History Smoking Status: Unknown if Ever Smoked Cigarette use (# per day): No Frequency of alcohol use: None Drug Abuse: None Lives with: Family Family History: Arthritis, CAD, CVA, DM, Hyperlipidemia, Hypertension, Malignancy, Thyroid Disfunction Patient has suicidal ideation: No Patient has homicidal ideation: No - Past Medical History Cardiac Medical History: Reports: Hx Atrial Fibrillation - Dx 2005, denies Rx, Cardiac note, Dr Moura does not include A fib Dx, Hx DVT, Hx Hypercholesterolemia, Hx Hypertension - NO MEDS PRESENTLY SINCE 2013 Denies: Hx Congestive Heart Failure, Hx Coronary Artery Disease, Hx Heart Attack, Hx Peripheral Vascular Disease, Hx Pulmonary Embolism, Hx Heart Murmur Pulmonary Medical History: Reports: Hx Asthma, Hx Bronchitis, Hx COPD - Dx'ed > 14 years ago, however in [place] refured Dx in May 2013, 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 Denies: Hx Cerebrovascular Accident, Hx Seizures Renal/ Medical History: Denies: Hx End Stage Renal Disease, Hx Kidney Stones, Hx Peritoneal Dialysis Malignancy Medical History: Denies: Hx Leukemia, Hx Lung Cancer GI Medical History: Reports: Hx Gastroesophageal Reflux Disease. Denies: Hx Crohn's Disease - denies, Hx Hepatitis, Hx Hiatal Hernia, Hx Irritable Bowel, Hx Liver Failure, Hx Ulcer Musculoskeltal Medical History: Reports Hx Arthritis, Denies Hx Fibromyalgia, Denies Hx Muscular Dystrophy, Reports Hx Musculoskeletal Deformity, Reports Hx Musculoskeletal Trauma Psychiatric Medical History: Reports: Hx Bipolar Disorder - Dx'ed 1993, Hx Depression, Hx Schizophrenia - Dx'ed 1999 Denies: Hx Post Traumatic Stress Disorder Traumatic Medical History: Denies: Hx Fractures Infectious Medical History: Denies: Hx Hepatitis, Hx HIV Past Surgical History: Reports: Hx Abdominal Surgery - 2 HERNIA REPAIRS, Hx Appendectomy - incidental with gastric bypass, Hx Gastric Bypass Surgery - 1985 , revision 2009, Hx Herniorrhaphy - multiple ventral/umbilical, mesh inserted with last surgical intervention, Hx Nose Surgery, Hx Open Heart Surgery - CATHS X 2, Hx Orthopedic Surgery - back, shoulder, bilateral knee replacement. Denies : Hx Bowel Surgery, Hx Section, Hx Cholecystectomy, Hx Colostomy, Hx Coronary Artery Bypass Graft, Hx Hysterectomy, Hx Mastectomy, Hx Pacemaker, Hx Tonsillectomy, Hx Tubal Ligation - Immunizations Immunizations up to date: Yes Hx Diphtheria, Pertussis, Tetanus Vaccination: No Hx Pneumococcal Vaccination: 12/01/10 Review of Systems - Review of Systems Notes: Review HPI for review of systems., All other systems negative Physical Exam - Vital signs Vitals: Temp Pulse Resp BP Pulse Ox 97.7 F 81 18 142/89 H 89 L 03/24/17 13:35 03/24/17 13:35 03/24/17 13:35 03/24/17 13:35 03/24/17 13:35 - Notes Notes: PHYSICAL EXAMINATION: GENERAL: Well-appearing and in no acute distress agitated HEAD: Atraumatic, normocephalic. EYES: Pupils equal round , sclera anicteric, conjunctiva are normal. ENT: nares patent, Moist mucous membranes. NECK: Normal range of motion, supple without lymphadenopathy LUNGS: CTAB and equal. No wheezes rales or rhonchi. HEART: Regular rate and rhythm without murmurs ABDOMEN: Soft, no tenderness. No guarding, no rebound EXTREMITIES: Normal range of motion, no pitting edema. No cyanosis. c/o right hip pain, no ecchymosis, no obvious deformity, Pt flexes/extends her leg with out problems. Right knee larger than right, pt reports this is not new, she has had 6 operations to the knee. Pt has FROM, Denies knee pain. NEUROLOGICAL: Cranial nerves grossly intact. Normal sensory/motor exams. PSYCH: Normal mood, normal affect. SKIN: Warm, Dry, normal turgor, no rashes or lesions noted Course - Re-evaluation Re-evalutation: 03/24/17 17:10 [facility] and to assess patient. She reports she's talked to the family. She reports family reports that patient's been very aggressive destructive in the house not taking medication. She believes patient is in manic phase. IVC initiated 03/24/17 19:17 Report given to Ariella MONACO, introduced to pt. Pt refusing EKG. - Vital Signs Vital signs: Temp Pulse Resp BP Pulse Ox 97.7 F 77 18 139/84 H 94 03/24/17 13:35 03/25/17 06:12 03/25/17 06:12 03/25/17 06:12 03/25/17 06:12 - Laboratory Result Diagrams: 03/24/17 17:18 03/24/17 17:18 Laboratory results interpreted by me: 03/24/17 03/24/17 17:18 19:10 Potassium 3.4 L AST 78 H Urine Ketones TRACE H Ur Leukocyte Esterase TRACE H Salicylates < 1.0 L Acetaminophen < 10 L Discharge - Discharge Clinical Impression: bipolar Condition: Stable
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
[2017-03-24] MEDS ORDERED: FLUOXETINE HCL 20 MG CAPSULE PO SCH (17:30)
[2017-03-24] MEDS ORDERED: ALPRAZOLAM 0.5 MG TABLET PO SCH (17:30)
[2017-03-24 17:39] LABS: ABSOLUTE BASOPHILS # (AUTO) 0.1 10^3/uL (0.0-0.2); ABSOLUTE EOSINOPHILS # (AUTO) 0.2 10^3/uL (0.0-0.6); ABSOLUTE LYMPHOCYTES (AUTO) 1.9 10^3/uL (0.5-4.7); ABSOLUTE MONOCYTES (AUTO) 0.7 10^3/uL (0.1-1.4); ABSOLUTE NEUT (AUTO) 2.7 10^3/uL (1.7-8.2); BASOPHILS % (AUTO) 1.1 % (0-2); EOSINOPHILS % (AUTO) 4.2 % (0-6); HEMATOCRIT 38.2 % (36.0-47.0); HEMOGLOBIN 12.7 g/dL (12.0-15.5); HGB HCT DIFFERENCE -0.1; LYMPHOCYTES % (AUTO) 34.2 % (13-45); MEAN CORPUSCULAR HEMOGLOBIN 29.5 pg (27.0-33.4); MEAN CORPUSCULAR HGB CONC 33.4 g/dL (32.0-36.0); MEAN CORPUSCULAR VOLUME 89 fl (80-97); RED BLOOD COUNT 4.31 10^6/uL (3.72-5.28); RED CELL DISTRIBUTION WIDTH 12.6 % (11.5-14.0); SEGMENTED NEUTROPHILS % (AUTO) 48.5 % (42-78); WHITE BLOOD COUNT 5.6 10^3/uL (4.0-10.5)
[2017-03-24] MEDS ORDERED: FLUOXETINE HCL 20 MG CAPSULE PO ONE (17:45)
[2017-03-24 17:49] LABS: ALANINE AMINOTRANSFERASE 43 U/L (9-52); ALBUMIN 4.1 g/dL (3.5-5.0); ALKALINE PHOSPHATASE 82 U/L (38-126); ANION GAP 14 (5-19); ASPARTATE AMINO TRANSFERASE 78 U/L (14-36); BILIRUBIN,DIRECT 0.4 mg/dL (0.0-0.4); BLOOD UREA NITROGEN 16 mg/dL (7-20); CALCIUM 9.7 mg/dL (8.4-10.2); CARBON DIOXIDE 26 mmol/L (22-30); CHLORIDE 105 mmol/L (98-107); CREATININE RESULT 0.74 mg/dL (0.52-1.25); GLUCOSE 91 mg/dL (75-110); POTASSIUM 3.4 mmol/L (3.6-5.0); SODIUM 144.8 mmol/L (137-145); TOTAL PROTEIN 6.7 g/dL (6.3-8.2)
[2017-03-24 17:51] LABS: ALCOHOL < 10 mg/dL (NONE DETECTED)
[2017-03-24] MEDS ORDERED: ALPRAZOLAM 0.5 MG TABLET PO ONE (18:00)
[2017-03-24] MEDS: GABAPENTIN 100 MG CAPSULE PO SCH (18:29)
[2017-03-24 21:44] LABS: APPEARANCE,URINE CLEAR; BILIRUBIN,URINE NEGATIVE (NEGATIVE); CALCIUM OXALATE CRYSTALS,URINE MANY /HPF; GLUCOSE, URINE NEGATIVE (NEGATIVE); KETONES,URINE TRACE mg/dL (NEGATIVE); LEUKOCYTE ESTERASE,URINE TRACE (NEGATIVE); NITRITE,URINE NEGATIVE (NEGATIVE); PROTEIN,URINE NEGATIVE (NEGATIVE); URINE SPECIFIC GRAVITY 1.006; UROBILINOGEN,URINE NEGATIVE mg/dL (<2.0)
[2017-03-24 21:56] LABS: URINE BARBITURATES SCREEN NEGATIVE; URINE METHADONE SCREEN NEGATIVE; URINE OPIATES LOW NEGATIVE; URINE PHENCYCLIDINE SCREEN NEGATIVE
[2017-03-24] MEDS: ALPRAZOLAM 0.5 MG TABLET PO SCH (22:45)
[2017-03-24] MEDS: TOPIRAMATE 25 MG TABLET PO SCH (22:45)
[2017-03-25] MEDS ORDERED: ACETAMINOPHEN 325 MG TABLET PO ONE ×2 (00:35→05:55)
--- NOTE | 2017-03-25 09:23 | ER Document Report ---
Doctor's Note Notes: 03/25/17 21:11 As the rounding physician for our psychiatric patients, I have reviewed the chart, vitals, lab work. Patient has been examined and noted to be stable at this time . We will watch the patient overnight
[2017-03-25] MEDS: GABAPENTIN 100 MG CAPSULE PO SCH ×3 (09:52→17:53)
[2017-03-25] MEDS: ALPRAZOLAM 0.5 MG TABLET PO SCH ×2 (09:52→21:14)
[2017-03-25] MEDS: FLUOXETINE HCL 20 MG CAPSULE PO SCH (09:52)
--- NOTE | 2017-03-25 12:22 | PSYCHOLOGICAL NOTE ---
Psych Note - Psych Note Psych Note: Conducted check in with patient who is a 67 year old female who is under IVC at [facility] ED for manic, aggressive behaviors towards family, and likely medication noncompliance. Patient today is observed wandering to and from the bathroom, singing judaism music and praising the Lord. Patient is able to be redirected after 2-3 prompts. Patient is oriented to name and location. Mood is irritable, and uncooperative. Congruent affect. Patient denies suicidal/homicidal ideations, intent, plan, means. Patient denies A/VH; delusions were reported by family. Thought processes were guarded. Conversational speech was at times difficult to understand. Attention and focus are poor. Insight, judgment, impulse control were poor. Unspecified bipolar disorder Patient is recommended to be placed under an involuntary commitment for her safety. Patient presents with poor insight and judgment and in a manic state. Patient does not present as though she could make appropriate decisions regarding her safety due to her ayala and hyper gnosticism thought processes. I consulted with Dr. Elkins in regards to the care and management of this patient. ED provider states she is in agreement with disposition and recommendations.
[2017-03-25] MEDS ORDERED: OLANZAPINE 2.5 MG TABLET PO SCH (13:00)
[2017-03-25] MEDS ORDERED: LEVETIRACETAM 500 MG TABLET PO SCH (13:00)
[2017-03-25] MEDS ORDERED: OLANZAPINE 2.5 MG TABLET PO ONE (13:30)
[2017-03-25] MEDS ORDERED: LEVETIRACETAM 500 MG TABLET PO ONE (13:30)
[2017-03-25] MEDS: LEVETIRACETAM 500 MG TABLET PO SCH (21:12)
[2017-03-25] MEDS: TOPIRAMATE 25 MG TABLET PO SCH (21:13)
[2017-03-25] MEDS: OLANZAPINE 2.5 MG TABLET PO SCH (21:13)
[2017-03-26] MEDS: GABAPENTIN 100 MG CAPSULE PO SCH ×2 (09:35→14:10)
[2017-03-26] MEDS: ALPRAZOLAM 0.5 MG TABLET PO SCH (09:36)
[2017-03-26] MEDS: FLUOXETINE HCL 20 MG CAPSULE PO SCH (09:36)
[2017-03-26] MEDS: OLANZAPINE 2.5 MG TABLET PO SCH (09:36)
[2017-03-26] MEDS: LEVETIRACETAM 500 MG TABLET PO SCH (09:36)
[2017-03-26] MEDS ORDERED: MECLIZINE HCL 25 MG TABLET PO ONE (11:19)
--- NOTE | 2017-03-26 11:21 | ER Document Report ---
Doctor's Note Notes: 03/26/17 11:20 As the rounding physician for our psychiatric patients, I have reviewed the chart, vitals, lab work. Patient has been examined and noted to be medically stable at this time. She is requesting her meclizine for her vertigo but does not appear to be acutely symptomatic at this time. She is sitting up and eating her meal tray comfortably. She adamantly denies any SI or HI. I am awaiting mental health in [facility] regarding placement 03/26/17 Patient was accepted and transferred to [facility] for inpatient psychiatric care. I evaluated the patient just prior to transport and she was awake and alert, hemodynamic stable, had no acute complaints. She was stable for transport.
[2017-03-26 15:29] VITALS: BP 133/64
== END 2017-03-26 15:05 ==
LOC: ER 12:43
DX: F31.9 Bipolar disorder, unspecified (principal); M79.1 Myalgia; M54.2 Cervicalgia; M25.551 Pain in right hip; W01.0XXA Fall on same level from slipping, tripping and stumbling without subsequent striking against object, initial encounter; I48.91 Unspecified atrial fibrillation; E78.00 Pure hypercholesterolemia, unspecified; I10 Essential (primary) hypertension; J44.9 Chronic obstructive pulmonary disease, unspecified; K21.9 Gastro-esophageal reflux disease without esophagitis; Z86.718 Personal history of other venous thrombosis and embolism; Z88.3 Allergy status to other anti-infective agents; Z98.84 Bariatric surgery status; Z96.653 Presence of artificial knee joint, bilateral
CPT/HCPCS: 99285; 36415; 80307 ×4; 85025; 80053; 81001; 73502; A9270 ×10; J3490

== ENCOUNTER → 2018-12-03 | Outpatient (CLI) | payer MEDICARE, MEDICAID ==
[2018-12-03 11:15] LABS: CHOLESTEROL 177.51 mg/dL (0-200); TRIGLYCERIDES 105 mg/dL (<150)
[2018-12-03 11:18] LABS: ALANINE AMINOTRANSFERASE 24 U/L (9-52); ALBUMIN 3.8 g/dL (3.5-5.0); ALKALINE PHOSPHATASE 98 U/L (38-126); ANION GAP 6 (5-19); ASPARTATE AMINO TRANSFERASE 32 U/L (14-36); BILIRUBIN,DIRECT 0.2 mg/dL (0.0-0.4); BILIRUBIN,TOTAL 0.4 mg/dL (0.2-1.3); BLOOD UREA NITROGEN 18 mg/dL (7-20); CALCIUM 9.3 mg/dL (8.4-10.2); CARBON DIOXIDE 32 mmol/L (22-30); CHLORIDE 103 mmol/L (98-107); GLUCOSE 90 mg/dL (75-110); POTASSIUM 4.9 mmol/L (3.6-5.0); SODIUM 141.2 mmol/L (137-145); TOTAL PROTEIN 6.5 g/dL (6.3-8.2)
[2018-12-03 11:26] LABS: DIRECT LDL 118 mg/dL (<100)
== END ==
LOC: OD 09:12
PROVIDERS: ATTEND Family Medicine
DX: Z00.00 Encounter for general adult medical examination without abnormal findings (principal); Z13.220 Encounter for screening for lipoid disorders; Z13.1 Encounter for screening for diabetes mellitus; E78.5 Hyperlipidemia, unspecified
CPT/HCPCS: 36415; 80053; 80061

== ENCOUNTER 2019-01-19 06:54 | Emergency (ER) | payer MEDICARE, MEDICAID ==
[2019-01-19] MEDS ORDERED: NORMAL SALINE 1000 ML 1,000 ML IV ONE (07:14)
[2019-01-19] MEDS ORDERED: METOCLOPRAMIDE HCL INJ/PF 10 MG/2 ML SDV IV ONE (07:15)
[2019-01-19] MEDS ORDERED: DIPHENHYDRAMINE HCL 50 MG/ML VIAL IV ONE (07:15)
[2019-01-19] MEDS ORDERED: KETOROLAC TROMETHAMINE INJ/PF 30 MG/1 ML SDV IV ONE (07:15)
--- NOTE | 2019-01-19 07:17 | ER Document Report ---
ED Headache - General Chief Complaint: Headache Stated Complaint: HEADACHE,FUNNY FEELING IN CHEST,LEFT LEG PAIN Time Seen by Provider: 01/19/19 07:10 Primary Care Provider: IDANA SAWYER MD [Primary Care Provider] - Follow up as needed Notes: 69-year-old female who does have a history of chronic headaches in the past however she has not had many lately. She states that she began having pain on the left side of the head yesterday. It is been on and off describes as aching. At times it will change to the right. She denies any visual changes. Denies any extremity numbness tingling or weakness. Denies nausea vomiting. Denies chest pain denies shortness of breath. Rates the pain is mild to moderate. She states when she was younger she had headaches all the time. But that has gotten better since she has been older. TRAVEL OUTSIDE OF THE [place] IN LAST 30 DAYS: No - Related Data Allergies/Adverse Reactions: divalproex sodium [From Depakote] Allergy (Intermediate, Verified 07/11/16 15:53) swelling of ankles/feet hydroxyzine pamoate [From Vistaril] Allergy (Intermediate, Verified 07/11/16 15:53) rash/itch nalbuphine HCl [From Nubain] Allergy (Intermediate, Verified 07/11/16 15:53) rash/itch levofloxacin [From Levaquin] Allergy (Mild, Verified 07/11/16 15:53) itch/reddness Past Medical History - Social History Smoking Status: Unknown if Ever Smoked Family History: Arthritis, CAD, CVA, DM, Hyperlipidemia, Hypertension, Malignanc y, Thyroid Disfunction - Past Medical History Cardiac Medical History: Reports: Hx Atrial Fibrillation - Dx 2005, denies Rx, 06/07/15 Cardiac note, Dr Moura does not include A fib Dx, Hx DVT, Hx Hypercholesterolemia, Hx Hypertension - NO MEDS PRESENTLY SINCE 2013 Denies: Hx Congestive Heart Failure, Hx Coronary Artery Disease, Hx Heart Attack, Hx Peripheral Vascular Disease, Hx Pulmonary Embolism, Hx Heart Murmur Pulmonary Medical History: Reports: Hx Asthma, Hx Bronchitis, Hx COPD - Dx'ed > 14 years ago, however in [place] refured Dx in May 2013, 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 Denies: Hx Cerebrovascular Accident, Hx Seizures Renal/ Medical History: Denies: Hx End Stage Renal Disease, Hx Kidney Stones, Hx Peritoneal Dialysis Malignancy Medical History: Denies: Hx Leukemia, Hx Lung Cancer GI Medical History: Reports: Hx Gastroesophageal Reflux Disease. Denies: Hx Crohn's Disease - denies, Hx Hepatitis, Hx Hiatal Hernia, Hx Irritable Bowel, Hx Liver Failure, Hx Pancreatitis, Hx Ulcer Musculoskeletal Medical History: Reports Hx Arthritis, Denies Hx Fibromyalgia, Denies Hx Muscular Dystrophy, Reports Hx Musculoskeletal Deformity, Reports Hx Musculoskeletal Trauma Psychiatric Medical History: Reports: Hx Bipolar Disorder - Dx'ed 1993, Hx Depression, Hx Schizophrenia - Dx'ed 1999 Denies: Hx Post Traumatic Stress Disorder Traumatic Medical History: Denies: Hx Fractures Infectious Medical History: Denies: Hx Hepatitis, Hx HIV Past Surgical History: Reports: Hx Abdominal Surgery - 2 HERNIA REPAIRS, Hx Appendectomy - incidental with gastric bypass, Hx Gastric Bypass Surgery - 1985, revision 2009, Hx Herniorrhaphy - multiple ventral/umbilical, mesh inserted with last surgical intervention, Hx Nose Surgery, Hx Open Heart Surgery - CATHS X 2, Hx Orthopedic Surgery - back, shoulder, bilateral knee replacement. Denies: Hx Bowel Surgery, Hx Section, Hx Cholecystectomy, Hx Colostomy, Hx Coronary Artery Bypass Graft, Hx Hysterectomy, Hx Mastectomy, Hx Pacemaker, Hx Tonsillectomy, Hx Tubal Ligation - Immunizations Immunizations up to date: Yes Hx Diphtheria, Pertussis, Tetanus Vaccination: No Hx Pneumococcal Vaccination: 12/01/10 Review of Systems - Review of Systems Constitutional: denies: Chills, Fever EENT: denies: Blurred vision Cardiovascular: denies: Chest pain, Dyspnea Respiratory: denies: Short of breath Neurological/Psychological: Headaches. denies: Sensory change, Weakness, Gait changes, Loss of power, Paralysis, Seizure, Lost consciousness, Speech impairment, Numbness, Tingling -: Yes All other systems reviewed and negative Physical Exam - Vital signs Vitals: Resp Pulse Ox 26 H 100 01/19/19 07:08 01/19/19 07:08 - Notes Notes: GENERAL_APPEARANCE: well_nourished, alert, cooperative VITALS: reviewed, see vital signs table. HEAD: no_swelling\tenderness on the head. No tenderness on palpation of bilateral temples EYES: PERRL, EOMI, conjunctiva_clear. NOSE: no_nasal_discharge. MOUTH: (-)decreased moisture. THROAT: no_tonsilar_inflammation, no_airway_obstruction. no_lymphadenopathy NECK: supple, no_neck_tenderness, (-)thyromegaly. BACK: no_back_tenderness. CHEST_WALL: no_chest_tenderness. LUNGS: no_wheezing, no_rales, no_rhonchi, (-)accessory muscle use, good air exchange bilateral. HEART: normal_rate, normal_rhythm, normal_S1, normal_S2, (-)S3, (-)S4, no_murmur, no_rub. ABDOMEN: normal_BS, soft, no_abd_tenderness, (-)guarding, (-)rebound, no_organomegaly, no_abd_masses. EXTREMITIES: good pulses in all_extremities, no_swelling\tenderness in the extremities, no_edema. SKIN: warm, dry, good_color, no_rash. MENTAL_STATUS: speech_clear, oriented_X_3, normal_affect, responds_appropriately to questions. NEURO: Neg Motor or Sensory Deficits on exam, CN 2-12 intact, DTR 2+ symmetric x 4, No cerbellar signs Course - Re-evaluation Re-evalutation: 01/19/19 07:19 69-year-old female arrives complaining of a headache and just feeling funny she denies any extremity numbness tingling or weakness denies any slurred speech she has no signs of stroke at this time. She did have a history of chronic headaches in the past. However they have nearly subsided. She wanted to be checked. We will get a CT of the brain to rule out any kind of significant [employer]IT [employer]OR [employer] injury. There is no thunderclap no rapid onset not worst headache of life. Suspicion is low for subarachnoid hemorrhage. We will send a sed rate. She does have a history of arthritis so I would imagine this would be mildly elevated but should not be significantly. She has no visual changes. We will treat her with some IV fluids pain and nausea medicine. 01/19/19 09:43 CT scan was normal no signs of hemorrhage mass or stroke. Sed rate is normal. My suspicion for giant cell arteritis is very low. Patient had complete relief of discomfort with IV fluids and pain and nausea medicine. The patient is doing well repeat neuro exam shows no focal deficits no cranial nerve deficits no motor or sensory deficits. Patient able to walk without ataxia. Spoke with the patient she is comfortable going home and will follow up with her doctor if she develops any other pain symptoms numbness tingling or anything concerning we spoke she will return to the ER immediately. Otherwise I stressed the importance of follow-up. - Vital Signs Vital signs: Temp Pulse Resp BP Pulse Ox 97.8 F 69 18 118/47 L 100 01/19/19 07:11 01/19/19 07:11 01/19/19 09:02 01/19/19 09:02 01/19/19 09:02 - Laboratory Result Diagrams: 01/19/19 07:51 01/19/19 07:51 Laboratory results interpreted by me: 01/19/19 07:51 Carbon Dioxide 33 H Discharge - Discharge Clinical Impression: Headache Qualifiers: Headache type: other headache syndrome Qualified Code(s): G44.89 - Other headache syndrome Condition: Good Disposition: HOME, SELF-CARE Instructions: Headache ([facility]) Additional Instructions: Please follow-up with your doctor for further care if they have any additional symptoms please return to the ER as we have discussed Referrals: DIANA SAWYER MD [Primary Care Provider] - Follow up as needed
[2019-01-19 08:06] LABS: ABSOLUTE BASOPHILS # (AUTO) 0.1 10^3/uL (0.0-0.2); ABSOLUTE EOSINOPHILS # (AUTO) 0.2 10^3/uL (0.0-0.6); ABSOLUTE LYMPHOCYTES (AUTO) 2.1 10^3/uL (0.5-4.7); ABSOLUTE MONOCYTES (AUTO) 0.5 10^3/uL (0.1-1.4); ABSOLUTE NEUT (AUTO) 2.7 10^3/uL (1.7-8.2); BASOPHILS % (AUTO) 0.9 % (0-2); EOSINOPHILS % (AUTO) 4.4 % (0-6); HEMATOCRIT 37.7 % (36.0-47.0); HEMOGLOBIN 12.7 g/dL (12.0-15.5); LYMPHOCYTES % (AUTO) 37.8 % (13-45); MEAN CORPUSCULAR HGB CONC 33.6 g/dL (32.0-36.0); MEAN CORPUSCULAR VOLUME 86 fl (80-97); MONOCYTES % (AUTO) 9.7 % (3-13); PLATELET COUNT 198 10^3/uL (150-450); RED BLOOD COUNT 4.38 10^6/uL (3.72-5.28); RED CELL DISTRIBUTION WIDTH 13.8 % (11.5-14.0); SEGMENTED NEUTROPHILS % (AUTO) 47.2 % (42-78); TOTAL CELLS COUNTED % (AUTO) 100 %; WHITE BLOOD COUNT 5.6 10^3/uL (4.0-10.5)
--- NOTE | 2019-01-19 08:15 | RADIOLOGY REPORT (SQ) ---
EXAM DESCRIPTION: CT HEAD WITHOUT COMPLETED DATE/TIME: 01/19/2019 8:04 am REASON FOR STUDY: headache COMPARISON: 04/30/2016. TECHNIQUE: Axial images acquired through the brain without intravenous contrast. Images reviewed wi th bone, brain and subdural windows. Additional sagittal and coronal reconstructions were generated. Images stored on PACS. All CT scanners at this facility use dose modulation, iterative reconstruction, and/or weight based d osing when appropriate to reduce radiation dose to as low as reasonably achievable (ALARA). [facility]: Dose Right [facility]: CareDose [facility]: Dose Right [facility]: Teradose 4D [facility]: [employer] RADIATION DOSE: CT Rad equipment meets quality standard of care and radiation dose reduction techniq ues were employed. CTDIvol: 53.2 mGy. DLP: 1097 mGy-cm. mGy. LIMITATIONS: None. FINDINGS: VENTRICLES: Normal size and contour. CEREBRUM: No masses. No hemorrhage. No midline shift. No evidence for acute infarction. Normal gra y/white matter differentiation. No areas of low density in the white matter. CEREBELLUM: No masses. No hemorrhage. No alteration of density. No evidence for acute infarction. EXTRAAXIAL SPACES: No fluid collections. No masses. ORBITS AND GLOBE: No intra- or extraconal masses. Normal contour of globe without masses. CALVARIUM: No fracture. PARANASAL SINUSES: Small amount of fluid in the left maxillary sinus. SOFT TISSUES: No mass or hematoma. OTHER: No other significant finding. IMPRESSION: NORMAL BRAIN CT WITHOUT CONTRAST. LEFT MAXILLARY SINUS DISEASE. EVIDENCE OF ACUTE STROKE: NO. COMMENT: Quality ID # [id number]: Final reports with documentation of one or more dose reduction techniques (e.g., Automated exposure control, adjustment of the mA and/or kV according to patient size, use of iterative reconstruction technique) TECHNICAL DOCUMENTATION: JOB ID: [id number] [facility]- All Rights Reserved Reading location - IP/workstation name: [email or web address]
[2019-01-19 08:17] LABS: ANION GAP 6 (5-19); BLOOD UREA NITROGEN 20 mg/dL (7-20); CALCIUM 9.3 mg/dL (8.4-10.2); CARBON DIOXIDE 33 mmol/L (22-30); CHLORIDE 103 mmol/L (98-107); GLUCOSE 86 mg/dL (75-110); SODIUM 142.2 mmol/L (137-145)
[2019-01-19 08:46] LABS: ERYTHROCYTE SEDIMENTATION RATE 27 mm/hr (0-30)
[2019-01-19 10:18] VITALS: BP 114/59
== END 2019-01-19 10:18 | disposition home or self-care (01) ==
LOC: ER 06:54
DX: G44.89 Other headache syndrome (principal); R07.89 Other chest pain; M79.605 Pain in left leg; I48.91 Unspecified atrial fibrillation; J44.9 Chronic obstructive pulmonary disease, unspecified; Z86.718 Personal history of other venous thrombosis and embolism; Z98.84 Bariatric surgery status
CPT/HCPCS: 99284; 96361; 96374; 96375; 36415; 85025; 85652; 80048; 70450; J1200; J1885; J2765; J7030

== ENCOUNTER 2019-01-22 16:46 | Emergency (ER) | payer MEDICARE, MEDICAID ==
[2019-01-22] MEDS ORDERED: ACETAMINOPHEN 325 MG TABLET PO ONE (17:53)
--- NOTE | 2019-01-22 17:55 | ER Document Report ---
ED Medical Screen (RME) - General Chief Complaint: Leg Pain Stated Complaint: SIDE PAIN Time Seen by Provider: 01/22/19 17:52 Primary Care Provider: DIANA SAWYER MD [Primary Care Provider] - Follow up as needed Notes: Patient is a 69-year-old female history of DVT that presents to the emergency department for chief complaint of right leg swelling and pain. Patient states she noticed this earlier today, because of pain in her calf on the right leg that extends up to her hip, was concerned that she may have developed another DVT. Last one she had was remotely in the 90s, she also complains of a cough and some shortness of breath as well and wanted to have that evaluated. ROS: Other than noted above, the 12 point review of systems was reviewed with the patient and were negative, all pertinent findings are included in the HPI. PHYSICAL EXAMINATION: Vital signs reviewed. GENERAL: Well-appearing, well-nourished and in no acute distress. HEAD: Atraumatic, normocephalic. EYES: Pupils equal round extraocular movements intact, conjunctiva are normal. ENT: Nares patent NECK: Normal range of motion CV: Heart regular rate and rhythm LUNGS: No respiratory distress, clear to auscultation Musculoskeletal: Normal range of motion, tenderness to palpation of the right calf, with trace edema NEUROLOGICAL: Normal speech PSYCH: Normal mood, normal affect. MDM: Patient seen and examined for rapid initial assessment. Vital signs reviewed. A comprehensive ED assessment and evaluation of the patient, analysis of test results and completion of the medical decision making process will be conducted by additional ED providers. *Note is created using voice recognition software and may contain spelling, syntax or grammatical errors. TRAVEL OUTSIDE OF THE [place] IN LAST 30 DAYS: No - Related Data Allergies/Adverse Reactions: divalproex sodium [From Depakote] Allergy (Intermediate, Verified 07/11/16 15:53) swelling of ankles/feet nalbuphine HCl [From Nubain] Allergy (Intermediate, Verified 07/11/16 15:53) rash/itch levofloxacin [From Levaquin] Allergy (Mild, Verified 07/11/16 15:53) itch/reddness baclofen Adverse Reaction (Verified 01/22/19 16:51) famotidine [From Duexis] Adverse Reaction (Verified 01/22/19 16:51) ibuprofen [From Duexis] Adverse Reaction (Verified 01/22/19 16:51) pregabalin [From Lyrica] Adverse Reaction (Verified 01/22/19 16:51) Past Medical History - Past Medical History Cardiac Medical History: Reports: Hx Atrial Fibrillation - Dx 2005, denies Rx, 06/07/15 Cardiac note, Dr Moura does not include A fib Dx, Hx DVT, Hx Hypercholesterolemia, Hx Hypertension - NO MEDS PRESENTLY SINCE 2013 Denies: Hx Congestive Heart Failure, Hx Coronary Artery Disease, Hx Heart Attack, Hx Peripheral Vascular Disease, Hx Pulmonary Embolism, Hx Heart Murmur Pulmonary Medical History: Reports: Hx Asthma, Hx Bronchitis, Hx COPD - Dx'ed > 14 years ago, however in [place] refured Dx in May 2013, 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 Denies: Hx Cerebrovascular Accident, Hx Seizures Renal/ Medical History: Denies: Hx End Stage Renal Disease, Hx Kidney Stones, Hx Peritoneal Dialysis Malignancy Medical History: Denies: Hx Leukemia, Hx Lung Cancer GI Medical History: Reports: Hx Gastroesophageal Reflux Disease. Denies: Hx Crohn's Disease - denies, Hx Hepatitis, Hx Hiatal Hernia, Hx Irritable Bowel, Hx Liver Failure, Hx Pancreatitis, Hx Ulcer Musculoskeltal Medical History: Reports Hx Arthritis, Denies Hx Fibromyalgia, Denies Hx Muscular Dystrophy, Reports Hx Musculoskeletal Deformity, Reports Hx Musculoskeletal Trauma Psychiatric Medical History: Reports: Hx Bipolar Disorder - Dx'ed 1993, Hx Depression, Hx Schizophrenia - Dx'ed 1999 Denies: Hx Post Traumatic Stress Disorder Traumatic Medical History: Denies: Hx Fractures Infectious Medical History: Denies: Hx Hepatitis, Hx HIV Past Surgical History: Reports: Hx Abdominal Surgery - 2 HERNIA REPAIRS, Hx Appendectomy - incidental with gastric bypass, Hx Gastric Bypass Surgery - 1985, revision 2009, Hx Herniorrhaphy - multiple ventral/umbilical, mesh inserted with last surgical intervention, Hx Nose Surgery, Hx Open Heart Surgery - CATHS X 2, Hx Orthopedic Surgery - back, shoulder, bilateral knee replacement. Denies: Hx Bowel Surgery, Hx Section, Hx Cholecystectomy, Hx Colostomy, Hx Coronary Artery Bypass Graft, Hx Hysterectomy, Hx Mastectomy, Hx Pacemaker, Hx Tonsillectomy, Hx Tubal Ligation - Immunizations Immunizations up to date: Yes Hx Diphtheria, Pertussis, Tetanus Vaccination: No Physical Exam - Vital signs Vitals: Temp Pulse Resp BP Pulse Ox 98.6 F 73 18 170/89 H 97 01/22/19 16:52 01/22/19 16:52 01/22/19 16:52 01/22/19 16:52 01/22/19 16:52 Course - Vital Signs Vital signs: Temp Pulse Resp BP Pulse Ox 98.6 F 73 18 170/89 H 97 01/22/19 16:52 01/22/19 16:52 01/22/19 16:52 01/22/19 16:52 01/22/19 16:52 Doctor's Discharge - Discharge Referrals: DIANA SAWYER MD [Primary Care Provider] - Follow up as needed
[2019-01-22 18:45] LABS: ABSOLUTE BASOPHILS # (AUTO) 0.1 10^3/uL (0.0-0.2); ABSOLUTE EOSINOPHILS # (AUTO) 0.2 10^3/uL (0.0-0.6); ABSOLUTE LYMPHOCYTES (AUTO) 2.2 10^3/uL (0.5-4.7); ABSOLUTE MONOCYTES (AUTO) 0.5 10^3/uL (0.1-1.4); ABSOLUTE NEUT (AUTO) 4.2 10^3/uL (1.7-8.2); BASOPHILS % (AUTO) 0.7 % (0-2); EOSINOPHILS % (AUTO) 2.4 % (0-6); HEMOGLOBIN 13.3 g/dL (12.0-15.5); LYMPHOCYTES % (AUTO) 30.4 % (13-45); MEAN CORPUSCULAR HEMOGLOBIN 29.2 pg (27.0-33.4); MEAN CORPUSCULAR HGB CONC 33.3 g/dL (32.0-36.0); MEAN CORPUSCULAR VOLUME 88 fl (80-97); MONOCYTES % (AUTO) 7.4 % (3-13); PLATELET COUNT 217 10^3/uL (150-450); RED BLOOD COUNT 4.57 10^6/uL (3.72-5.28); RED CELL DISTRIBUTION WIDTH 13.7 % (11.5-14.0); SEGMENTED NEUTROPHILS % (AUTO) 59.1 % (42-78); TOTAL CELLS COUNTED % (AUTO) 100 %; WHITE BLOOD COUNT 7.1 10^3/uL (4.0-10.5)
[2019-01-22 19:07] LABS: ALANINE AMINOTRANSFERASE 26 U/L (9-52); ALBUMIN 4.6 g/dL (3.5-5.0); ALKALINE PHOSPHATASE 100 U/L (38-126); ANION GAP 10 (5-19); ASPARTATE AMINO TRANSFERASE 63 U/L (14-36); BILIRUBIN,DIRECT 0.3 mg/dL (0.0-0.4); BILIRUBIN,TOTAL 0.4 mg/dL (0.2-1.3); BLOOD UREA NITROGEN 15 mg/dL (7-20); CARBON DIOXIDE 33 mmol/L (22-30); CHLORIDE 101 mmol/L (98-107); CREATINE KINASE 183 U/L (30-135); GLUCOSE 98 mg/dL (75-110); POTASSIUM 4.3 mmol/L (3.6-5.0); SODIUM 143.7 mmol/L (137-145); TOTAL PROTEIN 7.6 g/dL (6.3-8.2)
--- NOTE | 2019-01-22 19:23 | ER Document Report ---
ED Extremity Problem, Lower - General Chief Complaint: Leg Pain Stated Complaint: SIDE PAIN Time Seen by Provider: 01/22/19 17:52 Primary Care Provider: DIANA SAWYER MD [Primary Care Provider] - Follow up as needed Notes: Patient is a 69-year-old female that comes to the complaint of pain in her right leg, this is been present for several days more noticeably but increased today, she reports some swelling as well. She reports a history of DVT in the early 90s, she is not on a blood thinner. she denies fall or injury. She denies fever or chills. She does not have diabetes. She states that when she walks the pain is increased, she states the pain got sharp and radiated all the way into her body earlier when it was bad. TRAVEL OUTSIDE OF THE [place] IN LAST 30 DAYS: No - Related Data Allergies/Adverse Reactions: divalproex sodium [From Depakote] Allergy (Intermediate, Verified 07/11/16 15:53) swelling of ankles/feet nalbuphine HCl [From Nubain] Allergy (Intermediate, Verified 07/11/16 15:53) rash/itch levofloxacin [From Levaquin] Allergy (Mild, Verified 07/11/16 15:53) itch/reddness baclofen Adverse Reaction (Verified 01/22/19 16:51) famotidine [From Duexis] Adverse Reaction (Verified 01/22/19 16:51) ibuprofen [From Duexis] Adverse Reaction (Verified 01/22/19 16:51) pregabalin [From Lyrica] Adverse Reaction (Verified 01/22/19 16:51) Past Medical History - General Information source: Patient - Social History Smoking Status: Never Smoker Frequency of alcohol use: None Drug Abuse: None Lives with: Family Family History: Arthritis, CAD, CVA, DM, Hyperlipidemia, Hypertension, Malignancy, Thyroid Disfunction Patient has suicidal ideation: No Patient has homicidal ideation: No - Past Medical History Cardiac Medical History: Reports: Hx Atrial Fibrillation - Dx 2005, denies Rx, 06/07/15 Cardiac note, Dr Moura does not include A fib Dx, Hx DVT, Hx Hypercholesterolemia, Hx Hypertension - NO MEDS PRESENTLY SINCE 2013 Denies: Hx Congestive Heart Failure, Hx Coronary Artery Disease, Hx Heart Attack, Hx Peripheral Vascular Disease, Hx Pulmonary Embolism, Hx Heart Murmur Pulmonary Medical History: Reports: Hx Asthma, Hx Bronchitis, Hx COPD - Dx'ed > 14 years ago, however in [place] refured Dx in May 2013, 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 Denies: Hx Cerebrovascular Accident, Hx Seizures Renal/ Medical History: Denies: Hx End Stage Renal Disease, Hx Kidney Stones, Hx Peritoneal Dialysis Malignancy Medical History: Denies: Hx Leukemia, Hx Lung Cancer GI Medical History: Reports: Hx Gastroesophageal Reflux Disease. Denies: Hx Crohn's Disease - denies, Hx Hepatitis, Hx Hiatal Hernia, Hx Irritable Bowel, Hx Liver Failure, Hx Pancreatitis, Hx Ulcer Musculoskeletal Medical History: Reports Hx Arthritis, Denies Hx Fibromyalgia, Denies Hx Muscular Dystrophy, Reports Hx Musculoskeletal Deformity, Reports Hx Musculoskeletal Trauma Psychiatric Medical History: Reports: Hx Bipolar Disorder - Dx'ed 1993, Hx Depression, Hx Schizophrenia - Dx'ed 1999 Denies: Hx Post Traumatic Stress Disorder Traumatic Medical History: Denies: Hx Fractures Infectious Medical History: Denies: Hx Hepatitis, Hx HIV Past Surgical History: Reports: Hx Abdominal Surgery - 2 HERNIA REPAIRS, Hx Appendectomy - incidental with gastric bypass, Hx Gastric Bypass Surgery - 1985, revision 2009, Hx Herniorrhaphy - multiple ventral/umbilical, mesh inserted with last surgical intervention, Hx Nose Surgery, Hx Open Heart Surgery - CATHS X 2, Hx Orthopedic Surgery - back, shoulder, bilateral knee replacement. Denies: Hx Bowel Surgery, Hx Section, Hx Cholecystectomy, Hx Colostomy, Hx Coronary Artery Bypass Graft, Hx Hysterectomy, Hx Mastectomy, Hx Pacemaker, Hx Tonsillectomy, Hx Tubal Ligation - Immunizations Immunizations up to date: Yes Hx Diphtheria, Pertussis, Tetanus Vaccination: No Hx Pneumococcal Vaccination: 12/01/10 Review of Systems - Review of Systems Constitutional: See HPI EENT: No symptoms reported Cardiovascular: No symptoms reported Respiratory: No symptoms reported Gastrointestinal: No symptoms reported Genitourinary: No symptoms reported Female Genitourinary: No symptoms reported Musculoskeletal: See HPI Skin: No symptoms reported Hematologic/Lymphatic: See HPI Neurological/Psychological: No symptoms reported Physical Exam - Vital signs Vitals: Temp Pulse Resp BP Pulse Ox 98.6 F 73 18 170/89 H 97 01/22/19 16:52 01/22/19 16:52 01/22/19 16:52 01/22/19 16:52 01/22/19 16:52 - Notes Notes: GENERAL: Alert, interacts well. No acute distress. HEAD: Normocephalic, atraumatic. EYES: Pupils equal, round, and reactive to light. Extraocular movements intact. ENT: Oral mucosa moist, tongue midline. Oropharynx unremarkable. Airway patent. Nares patent, no nasal septal hematoma, TM's intact. NECK: Full range of motion. Supple. Trachea midline. LUNGS: Clear to auscultation bilaterally, no wheezes, rales, or rhonchi. No respiratory distress. HEART: Regular rate and rhythm. No murmur ABDOMEN: Soft, non-tender. Non-distended. Bowel sounds present in all 4 quadrants. GENITOURINARY: Deferred EXTREMITIES: Scarring consistent with old right knee replacement, mild soft tissue swelling at the right knee, range of motion intact, no abnormal heat or erythema, normal distal neurovascular exam, unremarkable extremity exam otherwise. BACK: no cervical, thoracic, lumbar midline tenderness. No saddle anesthesia, normal distal neurovascular exam. NEUROLOGICAL: Alert and oriented x3. Normal speech. [cranial nerves II through XII grossly intact]. PSYCH: Normal affect, expansive mood, very talkative SKIN: Warm, dry, normal turgor. No rashes or lesions noted. Course - Re-evaluation Re-evalutation: Patient has mild soft tissue swelling at the knee on the right side, old knee replacement, walks with a walker. She is able to ambulate. There is no edema of the lower extremity, no evidence of infection, range of motion is present. Unremarkable exam otherwise. Talkative and well-appearing patient. CBC, chemistry, troponin, chest x-ray, EKG from triage all reviewed and unremarkable. Venous Doppler of the right lower extremity is negative and preliminary results. Unremarkable vital signs. I discussed with patient. Patient admits that she went "dancing" and has been persistently on this leg for the past week. I suspect this is soft tissue swelling secondary to overuse. Patient is in full agreement with this. I discussed follow-up, expectations, and return precautions in detail. Patient already has pain medication she takes at home. Patient states satisfaction and agreement with plan. - Vital Signs Vital signs: Temp Pulse Resp BP Pulse Ox 98.0 F 68 18 129/70 H 97 01/22/19 20:50 01/22/19 20:50 01/22/19 20:50 01/22/19 20:50 01/22/19 20:50 - Laboratory Result Diagrams: 01/22/19 18:18 01/22/19 18:18 Laboratory results interpreted by me: 01/22/19 18:18 Carbon Dioxide 33 H AST 63 H Creatine Kinase 183 H Discharge - Discharge Clinical Impression: Right leg pain Condition: Stable Disposition: HOME, SELF-CARE Additional Instructions: The swelling and pain in your leg appears to be soft tissue only and probably because of the increased use over the past days/week. The Doppler does not show clot in your leg, remaining workup does not show any concerning findings at this time. Elevate, use the knee immobilizer, apply ice to the area 3-4 times a day for 10- 15 minutes, continue current medications, take your pain medication if needed. Follow-up with primary care. Return if you worsen including severe increased swelling, developing redness, fever shortness of breath, etc. Referrals: DIANA SAWYER MD [Primary Care Provider] - Follow up as needed
--- NOTE | 2019-01-22 19:36 | RADIOLOGY REPORT (SQ) ---
EXAM DESCRIPTION: CHEST SINGLE VIEW COMPLETED DATE/TIME: 01/22/2019 7:12 pm REASON FOR STUDY: cough, short of breath COMPARISON: 04/30/2016 TECHNIQUE: Single frontal radiographic view of the chest acquired. NUMBER OF VIEWS: One view. LIMITATIONS: None. FINDINGS: LUNGS AND PLEURA: No pneumothorax. No consolidation or pleural effusion. MEDIASTINUM AND HILAR STRUCTURES: Stable. HEART AND VASCULAR STRUCTURES: Stable. BONES: No acute findings. HARDWARE: None in the chest. OTHER: No other significant finding. IMPRESSION: NO ACUTE FINDINGS. TECHNICAL DOCUMENTATION: JOB ID: [id number] 2010 [employer]- All Rights Reserved Reading location - IP/workstation name: [email or web address]
[2019-01-22 21:13] VITALS: BP 129/70
--- NOTE | 2019-01-23 08:25 | EKG REPORT ---
SEVERITY:- BORDERLINE ECG - SINUS OR ECTOPIC ATRIAL RHYTHM BORDERLINE LEFT AXIS DEVIATION BORDERLINE R WAVE PROGRESSION, ANTERIOR LEADS : Confirmed by: vEens Moura MD 23-Jan-2019 08:24:59
--- NOTE | 2019-01-23 09:24 | RADIOLOGY REPORT (SQ) ---
EXAM DESCRIPTION: VENOUS UNILATERAL LOWER COMPLETED DATE/TIME: 01/22/2019 7:27 pm REASON FOR STUDY: right leg pain, swelling, hx dvt COMPARISON: None. TECHNIQUE: Dynamic and static andino scale and color images acquired of the right leg venous system. S elected spectral images acquired with additional compression and augmentation maneuvers. The contrala teral common femoral vein and saphenofemoral junction were also imaged. Images stored on PACS. LIMITATIONS: None. FINDINGS: COMMON FEMORAL: Normal phasicity, compression and augmentation. No visualized echogenic ma terial on andino scale. No defects on color images. FEMORAL: Normal compression and augmentation. No visualized echogenic material on andino scale. No defe cts on color images. POPLITEAL: Normal compression, augmentation. No visualized echogenic material on andino scale. No defec ts on color images. CALF VESSELS: Normal compression, augmentation. No visualized echogenic material on andino scale. No de fects on color images. GSV and SSV: Normal compression, augmentation. No visualized echogenic material on andino scale. No def ects on color images. ANY DEEP VENOUS INSUFFICIENCY: Not evaluated. ANY EVIDENCE OF POPLITEAL CYST: No. OTHER: No other significant finding. CONTRALATERAL COMMON FEMORAL VEIN AND SAPHENOFEMORAL JUNCTION: Normal phasicity, compression and augmentation. No visualized echogenic material on andino scale. No de fects on color images. IMPRESSION: NO EVIDENCE DVT OR SVT IN THE RIGHT LEG. TECHNICAL DOCUMENTATION: JOB ID: [id number] [employer]- All Rights Reserved Reading location - IP/workstation name: [email or web address]
== END 2019-01-22 21:15 | disposition home or self-care (01) ==
LOC: ER 16:46
DX: M79.604 Pain in right leg (principal); I48.91 Unspecified atrial fibrillation; E78.00 Pure hypercholesterolemia, unspecified; Z96.653 Presence of artificial knee joint, bilateral; Z86.718 Personal history of other venous thrombosis and embolism; Z88.3 Allergy status to other anti-infective agents
CPT/HCPCS: 93005; 99284; 36415; 82550; 85025; 80053; 84484; 93971; 71045; 93010; L1830; A9270

== ENCOUNTER 2019-02-03 22:37 | Emergency (ER) | payer MEDICARE, MEDICAID ==
[2019-02-03] MEDS ORDERED: ACETAMINOPHEN 325 MG TABLET PO ONE (22:49)
--- NOTE | 2019-02-03 23:14 | ER Document Report ---
ED Extremity Problem, Lower - General Chief Complaint: Knee Injury Stated Complaint: R KNEE INJURY Time Seen by Provider: 02/03/19 22:54 Primary Care Provider: ANISH ABRAHAM MD [ACTIVE STAFF] - Follow up in 3-5 days TRAVEL OUTSIDE OF THE [place] IN LAST 30 DAYS: No - HPI Notes: Patient is a 69-year-old female that presents to the emergency department for chief complaint of right knee pain. Patient states she was kneeling on her carpeted floor and when she stood up she had severe pain in her right knee. She reports having multiple surgeries on her right knee and has had knee dislocations in the past. She describes it as a sharp pain in her right knee which was worse with any movement. She states she has not been able to stand up since this. She did receive fentanyl by EMS which she reports improved her symptoms. She now states her pain is minimal. She does report some tingling sensation in her right foot. Patient denies any fall or other injuries. Past Medical History: Glaucoma, bipolar, dementia Past Surgical History: Total knee arthroplasty with revision on right Social History: Former smoker, denies alcohol and drug use Family History: Reviewed and noncontributory for presenting illness Allergies: Reviewed, see documented allergy list. REVIEW OF SYSTEMS: CONSTITUTIONAL : No fever No chills No diaphoresis No recent illness EENT: No vision changes No congestion No sore throat CARDIOVASCULAR: No chest pain No palpitations RESPIRATORY: No shortness of breath No cough No difficulty breathing GASTROINTESTINAL: No abdominal pain No nausea No vomiting No diarrhea GENITOURINARY: No dysuria No hematuria No difficulty urinating MUSCULOSKELETAL: No back pain leg pain No arm pain SKIN: No rashes No lesions LYMPHATIC: No swollen, enlarged glands. NEUROLOGICAL: No lightheadedness No headache No weakness No paresthesias PSYCHIATRIC: No anxiety No depression PHYSICAL EXAMINATION: Vital signs reviewed, nursing noted reviewed. GENERAL: Well-appearing, well-nourished and in no acute distress. HEAD: Atraumatic, normocephalic. EYES: Eyes appear normal, extraocular movements intact, sclera anicteric, conjunctiva are normal. ENT: nares patent, oropharynx clear without exudates. Moist mucous membranes. NECK: Normal range of motion, supple without lymphadenopathy LUNGS: Breath sounds clear to auscultation bilaterally and equal. No wheezes rales or rhonchi. HEART: Regular rate and rhythm without murmurs. ABDOMEN: Soft, nontender, normoactive bowel sounds. No rebound, guarding, or ri gidity. No masses appreciated. EXTREMITIES: Right knee deformity consistent with posterior knee dislocation, right lower extremity shortened, diffuse knee effusion and tenderness. Thready DP pulse on right, +2/4 DP pulse on left NEUROLOGICAL: No focal neurological deficits. Moves all extremities s pontaneously Motor and sensory grossly intact on exam. PSYCH: Normal mood, normal affect. SKIN: Warm, Dry, normal turgor, no rashes or lesions noted on exposed skin - Related Data Allergies/Adverse Reactions: divalproex sodium [From Depakote] Allergy (Intermediate, Verified 02/03/19 22:54) swelling of ankles/feet nalbuphine HCl [From Nubain] Allergy (Intermediate, Verified 02/03/19 22:54) rash/itch baclofen Adverse Reaction (Verified 02/03/19 22:54) famotidine [From Duexis] Adverse Reaction (Verified 02/03/19 22:54) ibuprofen [From Duexis] Adverse Reaction (Verified 02/03/19 22:54) pregabalin [From Lyrica] Adverse Reaction (Verified 02/03/19 22:54) Past Medical History - Social History Smoking Status: Former Smoker Family History: Arthritis, CAD, CVA, DM, Hyperlipidemia, Hypertension, Malignancy, Thyroid Disfunction - Past Medical History Cardiac Medical History: Reports: Hx Atrial Fibrillation - Dx 2005, denies Rx, 06/07/15 Cardiac note, Dr Moura does not include A fib Dx, Hx DVT, Hx Hypercholesterolemia, Hx Hypertension - NO MEDS PRESENTLY SINCE 2013 Denies: Hx Congestive Heart Failure, Hx Coronary Artery Disease, Hx Heart Attack, Hx Peripheral Vascular Disease, Hx Pulmonary Embolism, Hx Heart Murmur Pulmonary Medical History: Reports: Hx Asthma, Hx Bronchitis, Hx COPD - Dx'ed > 14 years ago, however in [place] refured Dx in May 2013, 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 Denies: Hx Cerebrovascular Accident, Hx Seizures Renal/ Medical History: Denies: Hx End Stage Renal Disease, Hx Kidney Stones, Hx Peritoneal Dialysis Malignancy Medical History: Denies: Hx Leukemia, Hx Lung Cancer GI Medical History: Reports: Hx Gastroesophageal Reflux Disease. Denies: Hx Crohn's Disease - denies, Hx Hepatitis, Hx Hiatal Hernia, Hx Irritable Bowel, Hx Liver Failure, Hx Pancreatitis, Hx Ulcer Musculoskeletal Medical History: Reports Hx Arthritis, Denies Hx Fibromyalgia, Denies Hx Muscular Dystrophy, Reports Hx Musculoskeletal Deformity, Reports Hx Musculoskeletal Trauma Psychiatric Medical History: Reports: Hx Bipolar Disorder - Dx'ed 1993, Hx Depression, Hx Schizophrenia - Dx'ed 1999 Denies: Hx Post Traumatic Stress Disorder Traumatic Medical History: Denies: Hx Fractures Infectious Medical History: Denies: Hx Hepatitis, Hx HIV Past Surgical History: Reports: Hx Abdominal Surgery - 2 HERNIA REPAIRS, Hx Appendectomy - incidental with gastric bypass, Hx Gastric Bypass Surgery - 1985, revision 2009, Hx Herniorrhaphy - multiple ventral/umbilical, mesh inserted with last surgical intervention, Hx Nose Surgery, Hx Open Heart Surgery - CATHS X 2, Hx Orthopedic Surgery - back, shoulder, bilateral knee replacement. Denies: Hx Bowel Surgery, Hx Section, Hx Cholecystectomy, Hx Colostomy, Hx Coronary Artery Bypass Graft, Hx Hysterectomy, Hx Mastectomy, Hx Pacemaker, Hx Tonsillectomy, Hx Tubal Ligation - Immunizations Immunizations up to date: Yes Hx Diphtheria, Pertussis, Tetanus Vaccination: No Hx Pneumococcal Vaccination: 12/01/10 Physical Exam - Vital signs Vitals: Resp BP Pulse Ox 15 156/80 H 99 02/03/19 22:43 02/03/19 22:43 02/03/19 22:43 Course - Re-evaluation Re-evalutation: 02/03/19 23:12 Vitals reviewed. Nursing notes reviewed. Patient was comfortable when she presented after receiving fentanyl by EMS. She had thready pulses in her right foot and after repositioning and partial reduction her pulse is now 1+ DP on the right and 2+ DP on the left. X-ray is consistent with posterior knee disloca tion. She is tolerating manipulation of the knee well and I am unable to fully reduce it. I spoke with Dr. Abraham to come assist with reduction. 02/03/19 23:36 Patient reevaluated and still has 1+ DP pulse on her right. She is now complaining of pain standing up into her right thigh will be given another dose of fentanyl. Plan for procedural sedation and joint reduction in the emergency room when Dr. Abraham is present. 02/03/19 23:54 Patient was just evaluated by Dr. Abraham who was able to reduce her knee without procedural sedation. She will be placed in a knee immobilizer and will follow with him in the office pending normal CTA of the right leg. 02/04/19 01:[address] scan had a poorly timed contrast bolus and does not show her vascularity well. She does have 2+ DP and PT pulses since having her knee reduced by Dr. Abraham. There is no posterior knee swelling to suggest vascular damage. Patient was counseled on return precautions. She will follow with Dr. Abraham in the office in the next few days. She is stable at discharge. - Vital Signs Vital signs: Temp Pulse Resp BP Pulse Ox 98.1 F 21 H 136/64 H 98 02/03/19 22:48 02/04/19 01:00 02/04/19 01:00 02/04/19 01:00 - Laboratory Result Diagrams: 02/03/19 23:28 02/03/19 23:28 Laboratory results interpreted by me: 02/03/19 23:28 Carbon Dioxide 31 H - Diagnostic Test Radiology reviewed: Image reviewed, Reports reviewed Procedures - Immobilization Right Knee Pre-Proc Neuro Vasc Exam: Normal Immobilizer type: Knee immobilizer Performed by: RN Post-Proc Neuro Vasc Exam: Normal Alignment checked and good: Yes - Joint Reduction/Fracture Care n Time completed: 23:14 Consent obtained: Yes - Verbal Conscious sedation: No Pre-procedure NV exam: Yes - Thready right DP pulse Manipulation comment: Traction Post-procedure NV exam: Yes - 1+ right DP pulse Post-reduction x-ray: Joint not reduced Reduction attempts: 1 Notes: 02/03/19 23:14 Patient tolerated well with no immediate complications Discharge - Discharge Clinical Impression: Closed posterior dislocation of right knee Qualifiers: Encounter type: initial encounter Qualified Code(s): S83.124A - Posterior dislocation of proximal end of tibia, right knee, initial encounter Condition: Stable Disposition: HOME, SELF-CARE Instructions: Dislocation ([facility]), Knee Immobilizing Splint ([facility]) Additional Instructions: Please return to the emergency department if you have any worsening, or concern of your symptoms. Please return to the emergency department if you develop chest pain, difficulty breathing, severe abdominal pain, or ongoing vomiting. Please follow-up with your primary care physician in 2-3 days and any other recommended physicians. If prescribed, take all medications as directed. If you have any questions or concerns do not hesitate to return the emergency department for evaluation. Apply ice to the affected knee for 15 minutes at a time 2-3 times a day to help with swelling and pain Referrals: ANISH ABRAHAM MD [ACTIVE STAFF] - Follow up in 3-5 days
[2019-02-03] MEDS ORDERED: PROPOFOL INJ 200 MG/20 ML VIAL IV ONE (23:31)
[2019-02-03] MEDS ORDERED: FENTANYL CITRATE INJ/PF 100 MCG/2 ML AMPUL IV ONE (23:37)
[2019-02-03 23:41] LABS: ABSOLUTE BASOPHILS # (AUTO) 0.1 10^3/uL (0.0-0.2); ABSOLUTE EOSINOPHILS # (AUTO) 0.3 10^3/uL (0.0-0.6); ABSOLUTE LYMPHOCYTES (AUTO) 2.4 10^3/uL (0.5-4.7); ABSOLUTE MONOCYTES (AUTO) 0.6 10^3/uL (0.1-1.4); ABSOLUTE NEUT (AUTO) 3.6 10^3/uL (1.7-8.2); BASOPHILS % (AUTO) 0.9 % (0-2); EOSINOPHILS % (AUTO) 3.9 % (0-6); HEMATOCRIT 36.8 % (36.0-47.0); HEMOGLOBIN 12.5 g/dL (12.0-15.5); LYMPHOCYTES % (AUTO) 34.1 % (13-45); MEAN CORPUSCULAR HEMOGLOBIN 29.2 pg (27.0-33.4); MEAN CORPUSCULAR HGB CONC 33.9 g/dL (32.0-36.0); MEAN CORPUSCULAR VOLUME 86 fl (80-97); MONOCYTES % (AUTO) 8.6 % (3-13); PLATELET COUNT 194 10^3/uL (150-450); RED BLOOD COUNT 4.28 10^6/uL (3.72-5.28); RED CELL DISTRIBUTION WIDTH 13.4 % (11.5-14.0); SEGMENTED NEUTROPHILS % (AUTO) 52.5 % (42-78); TOTAL CELLS COUNTED % (AUTO) 100 %
--- NOTE | 2019-02-03 23:42 | RADIOLOGY REPORT (SQ) ---
EXAM DESCRIPTION: XR KNEE 1-2 VIEWS COMPLETED DATE/TME: 02/03/2019 00:00 CLINICAL HISTORY: 69 years, Female, pain COMPARISON: 06/28/2015 right knee NUMBER OF VIEWS: 2 TECHNIQUE: 2 views right knee LIMITATIONS: None. FINDINGS: Osteopenia. Stable postsurgical change. No radiographic evidence for acute fracture, however there is suggestion of anterior subluxation of the femoral component relative to the tibial component on the lateral view. Associated soft tissue swelling.. IMPRESSION: Anterior subluxation of the femoral component relative to the tibial component seen on the lateral view. No discrete fracture. copyright 2010 [employer]- All Rights Reserved
[2019-02-03 23:49] LABS: INTERNATIONAL RATION (INR) 0.93; PROTHROMBIN TIME 12.9 SEC (11.4-15.4)
[2019-02-03 23:58] LABS: ANION GAP 8 (5-19); BLOOD UREA NITROGEN 18 mg/dL (7-20); CALCIUM 9.5 mg/dL (8.4-10.2); CARBON DIOXIDE 31 mmol/L (22-30); CHLORIDE 101 mmol/L (98-107); GLUCOSE 96 mg/dL (75-110); SODIUM 139.6 mmol/L (137-145)
--- NOTE | 2019-02-03 23:59 | PDOC CONSULTATION ---
Consultation Consult Date: 02/03/19 Consult reason:: Right prosthetic knee dislocation History of Present Illness Admission Date/PCP: DIANA SAWYER MD History of Present Illness: DANNY BAPTISTE is a 69 year old female Patient is a 69-year-old white female well known to me from other musculoskeletal issues who presents the emergency room with a right prosthetic knee dislocation. Orthopedics is consulted for reduction and management Past Medical History Cardiac Medical History: Reports: Atrial Fibrillation - Dx 2005, denies Rx, 06/07/15 Cardiac note, Dr Moura does not include A fib Dx, DVT, Hyperlipidema, Hypertension - NO MEDS PRESENTLY SINCE 2013 Denies: Congestive Heart Failure, Coronary Artery Disease, Myocardial Infarction, Peripheral Vascular Disease, Pulmonary Embolism, Heart Murmur Pulmonary Medical History: Reports: Asthma, Bronchitis, Chronic Obstructive Pulmonary Disease (COPD) - Dx'ed > 14 years ago, however MD in [place] refured Dx in May 2013, Tuberculosis - +PPD r/t exposure to [id number] with TB, meds x 6 months 1980 Denies: Pneumonia, Respiratory Failure, Sleep Apnea Neurological Medical History: Reports: Migraine Denies: Seizures Renal/ Medical History: Denies: End Stage Renal Disease Malignancy Medical History: Denies: Leukemia, Lung Cancer GI Medical History: Reports: Gastroesophageal Reflux Disease Denies: Crohn's Disease - denies, Hepatitis, Hiatal Hernia Musculoskeltal Medical History: Reports: Arthritis Denies: Fibromyalgia Psychiatric Medical History: Reports: Bipolar Disorder - Dx'ed 1993, Depression Denies: Post Traumatic Stress Disorder Hematology: Reports: Anemia Denies: Hemophilia, Sickle Cell Disease Infectious Medical History: Denies: HIV Past Surgical History Past Surgical History: Reports: Appendectomy - incidental with gastric bypass, Gastric Bypass Surgery - 1985, revision 2009, Herniorrhaphy - multiple ventral/umbilical, mesh inserted with last surgical intervention, Orthopedic Surgery - back, shoulder, bilateral knee replacement Denies: Section, Cholecystectomy, Colostomy, Coronary Artery Bypass Graft, Hysterectomy, Mastectomy, Pacemaker, Tonsillectomy, Tubal Ligation Social History Information Source: Patient, Office, [facility] Records Smoking Status: Former Smoker Frequency of Alcohol Use: Rare Hx Recreational Drug Use: No Hx Prescription Drug Abuse: No Family History Family History: Arthritis, CAD, CVA, DM, Hyperlipidemia, Hypertension, Malignancy, Thyroid Disfunction Parental Family History Reviewed: No Children Family History Reviewed: No Sibling(s) Family History Reviewed.: No Medication/Allergy Home Medications: Albuterol Sulfate [Ventolin HFA MDI 18 GM] 2 puff IH Q4HP PRN 03/17/17 Alprazolam [Xanax 0.5 mg Tablet] 0.5 mg PO BID 03/17/17 Atorvastatin Calcium [Lipitor 10 mg Tablet] 10 mg PO QPM 03/17/17 Cholecalciferol (Vitamin D3) [Vitamin D3 1000 Unit Tablet] 1,000 unit PO DAILY 03/17/17 Cyclosporine 0.05% Oph Emulsio [Restasis 0.05% Oph Emulsion Pf 0.4 ml] 1 drop OU BID 03/17/17 Fluoxetine HCl [Prozac 20 mg Capsule] 20 mg PO QAM 03/17/17 Furosemide [Lasix] 40 mg PO DAILY 03/17/17 Gabapentin [Neurontin 300 mg Capsule] 300 mg PO Q8 03/17/17 Levetiracetam [Keppra 500 mg Tablet] 500 mg PO Q12 03/17/17 Oxycodone HCl/Acetaminophen [Percocet 10-325 mg Tablet] 1 tab PO Q6HP PRN 03/17/17 Pantoprazole Sodium [Protonix] 40 mg PO QAM 03/17/17 Potassium Chloride [K-Tab ER] 20 meq PO DAILY 03/17/17 Topiramate [Topamax 100 mg Tablet] 100 mg PO QAM 03/17/17 Allergies/Adverse Reactions: divalproex sodium [From Depakote] Allergy (Intermediate, Verified 02/03/19 22:54) swelling of ankles/feet nalbuphine HCl [From Nubain] Allergy (Intermediate, Verified 02/03/19 22:54) rash/itch baclofen Adverse Reaction (Verified 02/03/19 22:54) famotidine [From Duexis] Adverse Reaction (Verified 02/03/19 22:54) ibuprofen [From Duexis] Adverse Reaction (Verified 02/03/19 22:54) pregabalin [From Lyrica] Adverse Reaction (Verified 02/03/19 22:54) Review of Systems All systems: as per [facility] Physical Exam Vital Signs: Temp Pulse Resp BP Pulse Ox 36.7 C 18 143/71 H 98 02/03/19 22:48 02/03/19 23:01 02/03/19 23:01 02/03/19 23:01 Intake & Output 02/02/19 02/03/19 02/04/19 06:59 06:59 06:59 Weight 97.522 kg Physical Exam: Middle-aged white female lying in the emergency room gurney and in only minor distress. Clear deformity of the right lower extremity General appearance: PRESENT: no acute distress, mild distress Head exam: PRESENT: normocephalic Respiratory exam: PRESENT: unlabored Cardiovascular exam: PRESENT: RRR Vascular exam: PRESENT: normal capillary refill GI/Abdominal exam: PRESENT: soft Rectal exam: PRESENT: deferred Extremities exam: PRESENT: other - Right knee with clear deformity and prominence of the distal femur anteriorly. Neurological exam: PRESENT: alert, awake, oriented to person, oriented to place, oriented to time, oriented to situation. ABSENT: motor sensory deficit Psychiatric exam: PRESENT: appropriate affect, normal mood. ABSENT: homicidal ideation, suicidal ideation Skin exam: PRESENT: dry, intact, warm. ABSENT: cyanosis, rash Results Laboratory Results: 02/03/19 23:28 02/03/19 23:28 WBC 7.0 RBC 4.28 Hgb 12.5 Hct 36.8 MCV 86 MCH 29.2 MCHC 33.9 RDW 13.4 Plt Count 194 Seg Neutrophils % 52.5 Lymphocytes % 34.1 Monocytes % 8.6 Eosinophils % 3.9 Basophils % 0.9 Absolute Neutrophils 3.6 Absolute Lymphocytes 2.4 Absolute Monocytes 0.6 Absolute Eosinophils 0.3 Absolute Basophils 0.1 Impressions: Knee X-Ray 02/03/19 00:00 IMPRESSION: Anterior subluxation of the femoral component relative to the tibial component seen on the lateral view. No discrete fracture. copyright 2010 [employer]- All Rights Reserved Status: Imported from PACS Assessment & Plan - Diagnosis (1) Closed posterior dislocation of right knee Qualifiers: Encounter type: initial encounter Qualified Code(s): S83.124A - Posterior dislocation of proximal end of tibia, right knee, initial encounter Is this a current diagnosis for this admission?: Yes Plan: 69-year-old white female status post multiple right knee procedures most recently a complex artery arthroplasty with a proximal tibial replacement and a constrained articulation who presents with a dislocation. The knee is flexed and anterior pressure placed on the proximal tibia resulting in a reduction of the dislocation. There continues to be a fair amount of laxity in the knee in both anterior posterior plane as well as a varus valgus plane. Post procedure pulses are palpable in dorsalis pedis region. - Time Time Spent: 50 to 70 Minutes Anticipated discharge: Home - Plan Summary Plan Summary: Follow-up with Dr. Abraham in the [facility] for surgery in 2 weeks for reev aluation. Knee immobilizer in the interim.
--- NOTE | 2019-02-04 | Operative Report ---
Operative Report DATE OF SURGERY: 02/03/19 PREOPERATIVE DIAGNOSIS: Right knee prosthetic dislocation OPERATION: Closed reduction right knee dislocation SURGEON: ANISH ELIAS PROCEDURE: With the patient on ER [place] the right lower extremity is manipulated by flexion of the knee with anterior pressure on the proximal posterior tibia resulting in a audible clunk and a clear reduction of the prior prosthetic knee dislocation. Radiographs are obtained to confirm the reduction.
--- NOTE | 2019-02-04 00:17 | RADIOLOGY REPORT (SQ) ---
EXAM DESCRIPTION: XR KNEE 1-2 VIEWS COMPLETED DATE/TME: 02/03/2019 23:53 CLINICAL HISTORY: 69 years, Female, dislocation COMPARISON: Prior right knee from today's date NUMBER OF VIEWS: 2 TECHNIQUE: 2 view right knee LIMITATIONS: None. FINDINGS: Interval reduction of the previously noted anterior subluxation/dislocation. There is diffuse soft tissue swelling however no evidence for acute fracture. Osteopenia. Heterotopic bone formation. IMPRESSION: Interval reduction. No acute fracture. copyright 2010 [employer]- All Rights Reserved
--- NOTE | 2019-02-04 01:08 | RADIOLOGY REPORT (SQ) ---
EXAM DESCRIPTION: CT LOWER EXTREMITY WITH IV CONTRAST COMPLETED DATE/TME: 02/03/2019 23:07 CLINICAL HISTORY: 69 years, Female, posterior RIGHT knee dislocation COMPARISON: Plain films from today's date TECHNIQUE: 864 Images stored on PACS. All CT scanners at this facility use dose modulation, iterative reconstruction, and/or weight based dosing when appropriate to reduce radiation dose to as low as reasonably achievable (ALARA). [facility]: Dose Right [facility]: CareDose [facility]: Dose Right [facility]: Teradose 4D [facility]: Borqs LIMITATIONS: None. FINDINGS: Significantly limited study secondary to artifact from the patient's knee prosthesis. Reconstructed images are nondiagnostic. No definitive enhancing abnormality. Areas of heterotopic bone formation secondary to prior fracture deformities of the distal femur with no convincing evidence for acute fracture. No evidence for dislocation. IMPRESSION: Nearly nondiagnostic exam secondary to extensive artifact from the patient's indwelling knee prosthesis however no convincing evidence for acute fracture or dislocation. No definitive enhancing abnormality. TECHNICAL DOCUMENTATION: Quality ID # [id number]: Final reports with documentation of one or more dose reduction techniques (e.g., Automated exposure control, adjustment of the mA and/or kV according to patient size, use of iterative reconstruction technique) copyright 2010 [employer]- All Rights Reserved
[2019-02-04 01:43] VITALS: BP 139/73
== END 2019-02-04 01:50 | disposition home or self-care (01) ==
LOC: ER 22:37
DX: T84.022A Instability of internal right knee prosthesis, initial encounter (principal); Y79.2 Prosthetic and other implants, materials and accessory orthopedic devices associated with adverse incidents; Y92.009 Unspecified place in unspecified non-institutional (private) residence as the place of occurrence of the external cause; I10 Essential (primary) hypertension; J44.9 Chronic obstructive pulmonary disease, unspecified; Z87.891 Personal history of nicotine dependence; Z88.8 Allergy status to other drugs, medicaments and biological substances; Z88.5 Allergy status to narcotic agent; Z98.84 Bariatric surgery status
CPT/HCPCS: 99284; 96374; 86900; 86901; 36415; 86850; 85025; 85610; 80048; 73560; 73701; 27550; A9270; J3010

== ENCOUNTER → 2019-02-18 | Outpatient (CLI) | payer MEDICARE, MEDICAID ==
[2019-02-18 10:18] LABS: HEMATOCRIT 40.8 % (36.0-47.0); HEMOGLOBIN 13.9 g/dL (12.0-15.5); MEAN CORPUSCULAR HEMOGLOBIN 29.3 pg (27.0-33.4); MEAN CORPUSCULAR HGB CONC 33.9 g/dL (32.0-36.0); MEAN CORPUSCULAR VOLUME 86 fl (80-97); PLATELET COUNT 206 10^3/uL (150-450); RED BLOOD COUNT 4.74 10^6/uL (3.72-5.28); RED CELL DISTRIBUTION WIDTH 13.4 % (11.5-14.0); WHITE BLOOD COUNT 7.2 10^3/uL (4.0-10.5)
[2019-02-18 10:37] LABS: ALANINE AMINOTRANSFERASE 26 U/L (9-52); ALBUMIN 4.1 g/dL (3.5-5.0); ALKALINE PHOSPHATASE 97 U/L (38-126); ANION GAP 7 (5-19); ASPARTATE AMINO TRANSFERASE 34 U/L (14-36); BILIRUBIN,DIRECT 0.3 mg/dL (0.0-0.4); BILIRUBIN,TOTAL 0.5 mg/dL (0.2-1.3); BLOOD UREA NITROGEN 20 mg/dL (7-20); CALCIUM 10.1 mg/dL (8.4-10.2); CARBON DIOXIDE 30 mmol/L (22-30); CHLORIDE 102 mmol/L (98-107); CHOLESTEROL 208.28 mg/dL (0-200); GLUCOSE 103 mg/dL (75-110); POTASSIUM 4.5 mmol/L (3.6-5.0); SODIUM 139.3 mmol/L (137-145); TOTAL PROTEIN 7.2 g/dL (6.3-8.2); TRIGLYCERIDES 140 mg/dL (<150)
[2019-02-18 10:52] LABS: DIRECT LDL 140 mg/dL (<100)
== END ==
LOC: LAB 09:57
PROVIDERS: ATTEND Internal Medicine Cardiovascular Disease
DX: R07.89 Other chest pain (principal); R00.2 Palpitations
CPT/HCPCS: 36415; 80048; 80061; 80076; 83735; 84443; 85027

== ENCOUNTER → 2019-03-16 | Outpatient (CLI) | payer MEDICARE, MEDICAID ==
[~2019-03-16] MED LIST: REGADENOSON INJ 0.4 MG/5 ML DISP.SYRIN IV ONE
--- NOTE | 2019-03-18 07:40 | RADIOLOGY REPORT ---
STRESS TEST REPORT PATIENT NAME: DANNY BAPTISTE ROOM#: DATE OF SERVICE: 03/16/2019 AGE: 69Y ORDER#: [id number] REFERRING MD: SUNDEEP KUMAR M.D. PROCEDURE REST/STRESS SINGLE ISOTOPE CARDIOLITE SPECT IMAGING WITH IV LEXISCAN STRESS AND GATED SPECT IMAGING INDICATION For assessment of chest pains. CLINICAL HISTORY This 69 years old female with no known coronary artery disease but cardiac risk factors of hypercholesterolemia, obesity, and family history of premature coronary artery disease, a brother at 46 had quadruple coronary artery bypass surgery. Current symptomatology includes chest pains. PROCEDURE The patient received IV Lexiscan 0.4 mcg infused over 10 seconds and flushed. The resting heart rate was 71 bpm and increased to 81 bpm at the end of the infusion. The resting blood pressure was 124/71 and increased to 134/66 at end infusion. The patient had symptoms of chest tightness but no chest pains, she also complained of lightheadedness, both symptoms subsided at the end of the test. The resting 12 lead EKG showed NSR, 72, left anterior fascicular block, old anterior CT. At the end of infusion no ST changes were seen. Myocardial perfusion imaging was performed at rest 60 minutes following injection of 10.2 mCi of Cardiolite. Ten seconds after the Lexiscan injection the patient was injected with 31.3 mCi of Cardiolite and flushed. Gated post stress tomographic imaging was performed 60 minutes after stress. FINDINGS The overall quality of the study is fair. Left ventricular cavity is noted to be normal in size on the rest and stress studies. There is no evidence of abnormal transient ischemic dilatation of the left ventricle. The TID ratio was 0.99. SPECT images showed a small area of reversible ischemia in the basal lateral wall only, there was no fixed perfusion defect. The overall left ventricular ejection fraction was 51% poststress. There was reduced motion contraction in the basal lateral wall. IMPRESSION Myocardial perfusion imaging is mildly abnormal. There is a small area of mild reversible ischemia in the basal lateral wall with no fixed perfusion defect. Overall left ventricular systolic function was low normal at 51% with reduced motion contraction in the basal lateral wall. No prior study for comparison. This is a low risk scan, recommend continue optimal medical therapy. INTERPRETING PHYSICIAN: SUNDEEP KUMAR M.D. /: [id number] TT: [id number] ID: [id number] /: [id number] TD: [id number] JOB: [id number] cc:SUNDEEP KUMAR M.D. > [facility]
== END ==
LOC: RAD 06:45
PROVIDERS: ATTEND Internal Medicine Cardiovascular Disease
DX: R07.89 Other chest pain (principal)
CPT/HCPCS: 93017; 78452; A9500; J2785; Q9969

== ENCOUNTER → 2019-05-17 | Outpatient (CLI) | payer MEDICARE, MEDICAID ==
[2019-05-17 09:40] LABS: ALANINE AMINOTRANSFERASE 22 U/L (9-52); ALBUMIN 4.3 g/dL (3.5-5.0); ALKALINE PHOSPHATASE 96 U/L (38-126); ASPARTATE AMINO TRANSFERASE 25 U/L (14-36); BILIRUBIN,DIRECT 0.3 mg/dL (0.0-0.4); BILIRUBIN,TOTAL 0.4 mg/dL (0.2-1.3); CHOLESTEROL 175.69 mg/dL (0-200); TOTAL PROTEIN 6.4 g/dL (6.3-8.2); TRIGLYCERIDES 74 mg/dL (<150)
[2019-05-17 09:51] LABS: DIRECT LDL 110 mg/dL (<100)
== END ==
LOC: OD 08:30
PROVIDERS: ATTEND Physician Assistant
DX: E78.2 Mixed hyperlipidemia (principal); Z79.899 Other long term (current) drug therapy
CPT/HCPCS: 36415; 80061; 80076

== ENCOUNTER 2019-08-12 17:28 | Emergency (ER) | payer MEDICARE, MEDICAID ==
[2019-08-12 17:34] VITALS: BP 141/72
== END 2019-08-12 19:33 | disposition left against medical advice (07) ==
LOC: ER 17:28
DX: Z53.21 Procedure and treatment not carried out due to patient leaving prior to being seen by health care provider (principal)

== ENCOUNTER 2019-08-18 18:59 | Emergency (ER) | payer MEDICARE, MEDICAID ==
[2019-08-18 20:57] LABS: APPEARANCE,URINE SLIGHTLY-CLOUDY; BILIRUBIN,URINE NEGATIVE (NEGATIVE); CALCIUM OXALATE CRYSTALS,URINE TOO NUMEROUS TO CNT /HPF; COLOR,URINE YELLOW; GLUCOSE, URINE NEGATIVE (NEGATIVE); KETONES,URINE TRACE mg/dL (NEGATIVE); LEUKOCYTE ESTERASE,URINE TRACE (NEGATIVE); NITRITE,URINE NEGATIVE (NEGATIVE); PROTEIN,URINE NEGATIVE (NEGATIVE); URINE SPECIFIC GRAVITY 1.019
--- NOTE | 2019-08-18 21:13 | ER Document Report ---
ED General - General Chief Complaint: Puncture Wound to Foot Stated Complaint: LEFT FOOT PAIN Time Seen by Provider: 08/18/19 20:29 Primary Care Provider: DIANA SAWYER MD [Primary Care Provider] - Follow up as needed Mode of Arrival: Ambulatory Information source: Patient Notes: 69-year-old female presents to ED for complaint of frequency urgency and burning with urination. She states she also stepped on some glass about 3 hours ago in the clinic kitchen she tried to get it out and was not able to remove the glass. She states that when she tries to step on the foot it is very painful and the heel where the laceration is. She already had an x-ray and there is a piece of glass in her foot. Patient is alert oriented respirations regular and unlabored speaking in full sentences. She states she came in here on because she had burning frequency and urgency and it was so busy that she left without being seen and she has had a burning frequency and urgency since then. She states she did not follow-up with her primary doctor. TRAVEL OUTSIDE OF THE [place] IN LAST 30 DAYS: No - HPI Onset: Last week - The burning frequency and urgency was last week the step and on the piece of glass was tonight Quality of pain: Other - See HPI Severity: Moderate Pain Level: 3 Associated symptoms: Other - Urinary symptoms and glass in her heel Exacerbated by: Movement, Walking, Other - Urination Relieved by: Denies Similar symptoms previously: Yes Recently seen / treated by doctor: No - Related Data Allergies/Adverse Reactions: divalproex sodium [From Depakote] Allergy (Intermediate, Verified 08/12/19 17:29) swelling of ankles/feet nalbuphine HCl [From Nubain] Allergy (Intermediate, Verified 08/12/19 17:29) rash/itch baclofen Adverse Reaction (Verified 08/12/19 17:29) famotidine [From Duexis] Adverse Reaction (Verified 08/12/19 17:29) ibuprofen [From Duexis] Adverse Reaction (Verified 08/12/19 17:29) pregabalin [From Lyrica] Adverse Reaction (Verified 08/12/19 17:29) Past Medical History - General Information source: Patient - Social History Smoking Status: Former Smoker Chew tobacco use (# tins/day): No Frequency of alcohol use: None Drug Abuse: None Lives with: Alone Family History: Arthritis, CAD, CVA, DM, Hyperlipidemia, Hypertension, Malignancy, Thyroid Disfunction Patient has suicidal ideation: No Patient has homicidal ideation: No - Past Medical History Cardiac Medical History: Reports: Hx DVT, Hx Hypercholesterolemia, Other - States she has a irregular heartbeat but it was told by the slip seat coverer sh Pulmonary Medical History: Reports: Hx Asthma, Hx Bronchitis, 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 with TB, meds x 6 months 1980 Denies: Hx COPD - States her doctor told her she does not and has never had COPD, Hx Pneumonia, Hx Respiratory Failure, Hx Sleep Apnea EENT Medical History: Reports: None Neurological Medical History: Reports: Hx Migraine Endocrine Medical History: Reports: None Renal/ Medical History: Reports: None Malignancy Medical History: Reports: None GI Medical History: Reports: Hx Gastroesophageal Reflux Disease - Thank you, Hx Irritable Bowel - For some Mycolog letter to the most good Mycolog after performing a Medical, Hx Colonoscopy, Hx Endoscopy - Ointment Musculoskeletal Medical History: Reports Hx Arthritis, Reports Hx Musculoskeletal Deformity, Reports Hx Musculoskeletal Trauma Skin Medical History: Reports None - Thank you Psychiatric Medical History: Reports: Hx Bipolar Disorder - Dx'ed 1993, Hx Depression, Hx Schizophrenia - Dx'ed 1999 Traumatic Medical History: Reports: Hx Fractures - Ankle Infectious Medical History: Reports: None Past Surgical History: Reports: Hx Abdominal Surgery - 2 HERNIA REPAIRS, Hx Appendectomy - incidental with gastric bypass, Hx Gastric Bypass Surgery - 1985, revision 2009, Hx Herniorrhaphy - multiple ventral/umbilical, mesh inserted with last surgical intervention, Hx Nose Surgery, Hx Orthopedic Surgery - back, shoulder, bilateral knee replacement, Hx Tubal Ligation - Immunizations Immunizations up to date: Yes Hx Diphtheria, Pertussis, Tetanus Vaccination: No Hx Pneumococcal Vaccination: 12/01/10 Review of Systems - Review of Systems Constitutional: No symptoms reported EENT: No symptoms reported Cardiovascular: No symptoms reported Respiratory: No symptoms reported Gastrointestinal: No symptoms reported Genitourinary: Burning, Frequency, Urgency Female Genitourinary: No symptoms reported Musculoskeletal: No symptoms reported Skin: Other - Stepped on glass feels like retained glass in foot Hematologic/Lymphatic: No symptoms reported Neurological/Psychological: No symptoms reported Physical Exam - Vital signs Vitals: Temp Pulse Resp BP Pulse Ox 98.2 F 77 20 158/72 H 96 08/18/19 19:25 08/18/19 19:25 08/18/19 19:25 08/18/19 19:25 08/18/19 19:25 Interpretation: Normal - General General appearance: Appears well, Alert - HEENT Head: Normocephalic, Atraumatic Eyes: Normal Pupils: PERRL - Respiratory Respiratory status: No respiratory distress Chest status: Nontender Breath sounds: Normal Chest palpation: Normal - Cardiovascular Rhythm: Regular Heart sounds: Normal auscultation Murmur: No - Abdominal Inspection: Normal Distension: No distension Bowel sounds: Normal Tenderness: Nontender Organomegaly: No organomegaly - Back Back: Normal, Nontender - Extremities General upper extremity: Normal inspection, Nontender, Normal color, Normal ROM, Normal temperature General lower extremity: Normal inspection, Nontender, Normal color, Normal ROM, Normal temperature, Normal weight bearing. No: Selvin's sign - Neurological Neuro grossly intact: Yes Cognition: Normal Orientation: AAOx4 Gerry Coma Scale Eye Opening: Spontaneous Secretary Coma Scale Verbal: Oriented Secretary Coma Scale Motor: Obeys Commands Secretary Coma Scale Total: 15 Speech: Normal Motor strength normal: LUE, RUE, LLE, RLE Sensory: Normal - Psychological Associated symptoms: Normal affect, Normal mood - Skin Skin Temperature: Warm Skin Moisture: Dry Skin Color: Normal Location of irregularity: Extremities - Left heel glass in the injury. Character of irregularity: Symmetric Irregularity with: Swelling, Tenderness Course - Vital Signs Vital signs: Temp Pulse Resp BP Pulse Ox 97.5 F 71 18 128/67 H 95 08/18/19 21:53 08/18/19 21:53 08/18/19 21:53 08/18/19 21:53 08/18/19 21:53 - Laboratory Laboratory results interpreted by me: 08/18/19 20:20 Urine Ketones TRACE H Urine Urobilinogen 2.0 H Ur Leukocyte Esterase TRACE H Urine Ascorbic Acid 40 H - Diagnostic Test Radiology reviewed: Image reviewed, Reports reviewed Procedures - Incision and Drainage Left heel Time completed: 21:30 Anesthetic type: 1% Lidocaine mL's of anesthetic: 5 I&D procedure: Shurclens applied Incision Method: Incision made by scalpel Notes: 08/18/19 21:31 This was more a foreign body removal from the heel. I used the I&D tray. I needed to make a 1 cm incision with the scalpel to remove the 1-1/2 cm piece of glass from the laceration. Glass was removed with hemostats and disposed in the sharps container. Heel was dressed with a sterile gauze and Band-Aid. Patient will get a tetanus shot and Keflex before being discharged home. Discharge - Discharge Clinical Impression: Painful urination, glass in left heel Laceration of left heel Qualifiers: Encounter type: initial encounter Qualified Code(s): S91.312A - Laceration without foreign body, left foot, initial encounter Condition: Stable Disposition: HOME, SELF-CARE Instructions: Family Physicians / Practices Additional Instructions: Foreign Body You had a piece of glass in your left heel. This piece of glass was removed. I needed to make a small incision in order to remove the glass because the glass was a little larger than the opening and I was unable to remove it without making a small extension to the laceration. I did not suture the laceration as it is on the bottom of your foot and it would need to drain. NON-SUTURED LACERATION: Your laceration did not require suturing. Some lacerations cannot be sutured because of increased infection risk, while others simply don't need stitches because they are shallow or very short. Your injury should be protected while it heals. Usually complete healing takes 10 to 14 days. Keep the dressing clean and dry, and change it every day. If you notice increasing pain, redness, swelling, drainage, or tender lumps in the armpit or groin above the injury, infection may be present. You should call the doctor at once. SOAP CLEANSING: Gently wash the wound daily using a mild soap (like Ivory, Phisoderm, Neutrogena). Use warm water, rubbing gently until all debris, ooze, and crusting have been washed from the wound. Allow to dry briefly (about 10 minutes) after cleaning. Repeat this cleansing at least three times a day for the first two days and then once or twice a day. ANTIBIOTIC OINTMENT PROTECTION: Your wounds are such that dressing them is not practical or optional. After cleansing, you should apply a thin coating of antibiotic ointment (Bacitracin, not Neosporin) to the wounds at least three times daily. This lessens infection risk, and may decrease the amount of scarring. Use a q-tip or dull butter knife, not your finger, to apply this ointment. Any debris or ooze which builds up in the ointment should be gently rubbed off with a sterile gauze pad. Harder crusting may need to be gently scrubbed off with a clean wash cloth with soap and warm water, perhaps applying a warm, wet wash cloth to the wound for ten minutes first. Development of redness, severe itching, or blistering may mean allergy to the ointment. See the doctor. TETANUS IMMUNIZATION GIVEN: You have been given an immunization against tetanus. Please record this in your records. In general, a booster is needed only once every 10 years. The tetanus shot protects against tetanus or "lockjaw," which is a complication of certain wound infections (the tetanus shot cannot protect against the actual i nfection). The immunization site may become warm and red due to local reaction. If this occurs, apply warm compresses and take aspirin or ibuprofen to reduce inflammation and discomfort. Return for evaluation if the reaction becomes severe. PROPHYLACTIC ANTIBIOTIC: The antibiotics which have been prescribed are designed to decrease the risk of infection. Only certain types of wounds benefit from this -- the typical cut, scrape, or burn DOES NOT require antibiotics. Of course, infection can still occur despite the use of prophylactic antibiotics. Your wound will heal with less chance of an infectious complication if you take the medication as directed. The most important dose is the FIRST dose, so don't delay filling the prescription! Cephalexin The antibiotic you've been prescribed is a member of the cephalosporin class. This type of antibiotic covers a wide variety of infections, including those of the skin, lungs, and urinary tract. It's useful for staph infections. This antibiotic is slightly similar to the penicillin family. In rare cases, a person who is allergic to penicillin will also be allergic to this medication. If you have had a severe allergic reaction to penicillin, and have not taken this antibiotic since that time, notify your doctor. Antibiotics which cover many germs ("broad spectrum" antibiotics) are more likely to cause diarrhea or "yeast" infections. Women prone to vaginal yeast problems may suffer an attack after taking this antibiotic. In infants, oral thrush (white spots "stuck" on the cheek) or yeast diaper rash may result. See your doctor if these problems occur. Call at once if you develop itching, hives, shortness of breath, or lightheadedness. Epsom Salt Soaks Soak the wound area in a container of warm epsom salt water. If you can't get the wound area into a bucket or jewell, use a folded towel soaked in the epsom salt solution and apply to the area. Use clean hot tap water (about the temperature of a very warm bath), mixing in about one (1) teaspoon for every pint of water. Two gallon --> 16 teaspoons Epsom Salts One gallon --> 8 teaspoons Epsom Salts Two quarts --> 4 teaspoons Epsom Salts One quart --> 2 teaspoons Epsom Salts Soak the wound for about 20 minutes while gently moving it around in the water. Repeat this four (4) times a day. FOLLOW-UP CARE: Please return in __3___ days for an infection check and dressing change. If you have been referred to another physician for follow-up care, call that physicians office for an appointment as you were instructed. If you experience a significant change in your laceration, or if you are concerned there may be an infection (swelling, redness, drainage, increasing tenderness, red streaks, tender lumps in the armpit or groin above the laceration, or fever), return to the Emergency Department immediately re-evaluation. Prescriptions: Cephalexin Monohydrate [Keflex 500 mg Capsule] 500 mg PO Q6H 5 Days capsule Forms: Elevated Blood Pressure Referrals: DIANA SAWYER MD [Primary Care Provider] - Follow up as needed
--- NOTE | 2019-08-18 21:19 | RADIOLOGY REPORT (SQ) ---
XR FOOT 3 OR MORE VIEWS CLINICAL STATEMENT: laceration by manny benítez for retained FB COMPARISON: None FINDINGS: There is a minimally displaced and impacted fifth proximal phalanx fracture. Mild soft tissue swelling. Mild degenerative changes in the midfoot. No radiopaque foreign body. IMPRESSION: Fifth proximal phalanx minimally displaced fracture. This is age-indeterminate. No radiopaque foreign body.
[2019-08-18] MEDS ORDERED: DIPH/PERTUSS(ACELL)/TETANUS VAC/PF 0.5 ML SYR (>=10YO) IM ONE (21:32)
[2019-08-18] MEDS ORDERED: CEPHALEXIN 500 MG CAPSULE PO ONE (21:32)
[2019-08-18 21:54] VITALS: BP 128/67
== END 2019-08-18 22:05 | disposition home or self-care (01) ==
LOC: ER 18:59
DX: S91.322A Laceration with foreign body, left foot, initial encounter (principal); R30.0 Dysuria; W25.XXXA Contact with sharp glass, initial encounter; E78.00 Pure hypercholesterolemia, unspecified; Z88.6 Allergy status to analgesic agent; Z86.718 Personal history of other venous thrombosis and embolism; Z98.84 Bariatric surgery status; Z23 Encounter for immunization
CPT/HCPCS: 81001; 73630; 90715; 20103; A9270; 87086

== ENCOUNTER → 2019-08-24 | Outpatient (CLI) | payer MEDICARE, MEDICAID ==
[2019-08-24 14:15] LABS: ALBUMIN 4.2 g/dL (3.5-5.0); ALKALINE PHOSPHATASE 86 U/L (38-126); ANION GAP 13 (5-19); ASPARTATE AMINO TRANSFERASE 53 U/L (14-36); BILIRUBIN,DIRECT 0.3 mg/dL (0.0-0.4); BILIRUBIN,TOTAL 0.6 mg/dL (0.2-1.3); BLOOD UREA NITROGEN 20 mg/dL (7-20); CALCIUM 9.5 mg/dL (8.4-10.2); CARBON DIOXIDE 28 mmol/L (22-30); CHLORIDE 98 mmol/L (98-107); CHOLESTEROL 131.74 mg/dL (0-200); GLUCOSE 81 mg/dL (75-110); POTASSIUM 4.4 mmol/L (3.6-5.0); TOTAL PROTEIN 6.5 g/dL (6.3-8.2); TRIGLYCERIDES 51 mg/dL (<150)
[2019-08-24 14:35] LABS: DIRECT LDL 74 mg/dL (<100)
== END ==
LOC: OD 12:03
PROVIDERS: ATTEND Internal Medicine Cardiovascular Disease
DX: Z98.84 Bariatric surgery status (principal); E78.2 Mixed hyperlipidemia; I10 Essential (primary) hypertension; Z79.899 Other long term (current) drug therapy
CPT/HCPCS: 36415; 80048; 80061; 80076; 82306; 82607; 84425; 84590; 84597

== ENCOUNTER 2019-08-26 14:20 | Emergency (ER) | payer MEDICARE, MEDICAID ==
[2019-08-26] MEDS ORDERED: ASPIRIN 81 MG TABLET, CHEWABLE PO ONE (14:24)
--- NOTE | 2019-08-26 15:28 | ER Document Report ---
ED General - General Chief Complaint: Dizziness Stated Complaint: DIZZINESS Time Seen by Provider: 08/26/19 15:00 Primary Care Provider: SUNDEEP MOURA MD [EMERITUS] - Follow up as needed TRAVEL OUTSIDE OF THE [place] IN LAST 30 DAYS: No - HPI Notes: Patient presents with multiple complaints. She states that while driving yesterday approximately 9 AM she started to have palpitations in her chest. It lasted approximately 20 minutes. It then occurred most of last night she said she felt like she is having palpitations. She was at rehabilitation earlier today when she had sudden onset of vertiginous symptoms. She states that the symptoms were at rest and also with movement and she felt palpitations as well. Of note, she was at Dr. Abraham today and fluid was taken off of her left knee due to swelling. No recent fevers or illnesses cough congestion - Related Data Allergies/Adverse Reactions: divalproex sodium [From Depakote] Allergy (Intermediate, Verified 08/26/19 14:33) swelling of ankles/feet nalbuphine HCl [From Nubain] Allergy (Intermediate, Verified 08/26/19 14:33) rash/itch pregabalin [From Lyrica] Adverse Reaction (Verified 08/26/19 14:33) Past Medical History - Social History Smoking Status: Former Smoker Chew tobacco use (# tins/day): No Frequency of alcohol use: None Drug Abuse: None Family History: Arthritis, CAD, CVA, DM, Hyperlipidemia, Hypertension, Malignancy, Thyroid Disfunction Patient has suicidal ideation: No Patient has homicidal ideation: No - Past Medical History Cardiac Medical History: Reports: Hx Atrial Fibrillation - Dx 2005, denies Rx, 06/07/15 Cardiac note, Dr Moura does not include A fib Dx, Hx DVT, Hx Hypercholesterolemia Denies: Hx Congestive Heart Failure, Hx Coronary Artery Disease, Hx Heart Attack, Hx Hypertension - NO MEDS PRESENTLY SINCE 2013, Hx Peripheral Vascular Disease, Hx Pulmonary Embolism, Hx Heart Murmur Pulmonary Medical History: Reports: Hx Asthma, Hx Bronchitis, 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 Denies: Hx Cerebrovascular Accident, Hx Seizures Renal/ Medical History: Denies: Hx End Stage Renal Disease, Hx Kidney Stones, Hx Peritoneal Dialysis Malignancy Medical History: Denies: Hx Leukemia, Hx Lung Cancer GI Medical History: Reports: Hx Gastroesophageal Reflux Disease - Thank you, Hx Irritable Bowel - For some Mycolog letter to the most good Mycolog after performing a Medical, Hx Colonoscopy, Hx Endoscopy - Ointment. Denies: Hx Crohn's Disease - denies, Hx Hepatitis, Hx Hiatal Hernia, Hx Liver Failure, Hx Pancreatitis, Hx Ulcer Musculoskeletal Medical History: Reports Hx Arthritis, Denies Hx Fibromyalgia, Denies Hx Muscular Dystrophy, Reports Hx Musculoskeletal Deformity, Reports Hx Musculoskeletal Trauma Psychiatric Medical History: Reports: Hx Bipolar Disorder - Dx'ed 1993, Hx Depression, Hx Schizophrenia - Dx'ed 1999 Denies: Hx Post Traumatic Stress Disorder Traumatic Medical History: Reports: Hx Fractures - Ankle Infectious Medical History: Denies: Hx Hepatitis, Hx HIV Past Surgical History: Reports: Hx Abdominal Surgery - 2 HERNIA REPAIRS, Hx Appendectomy - incidental with gastric bypass, Hx Gastric Bypass Surgery - 1985, revision 2009, Hx Herniorrhaphy - multiple ventral/umbilical, mesh inserted with last surgical intervention, Hx Nose Surgery, Hx Open Heart Surgery - CATHS X 2, Hx Orthopedic Surgery - back, shoulder, bilateral knee replacement, Hx Tubal Ligation. Denies: Hx Bowel Surgery, Hx Section, Hx Cholecystectomy, Hx Colostomy, Hx Coronary Artery Bypass Graft, Hx Hysterectomy, Hx Mastectomy, Hx Pacemaker, Hx Tonsillectomy - Immunizations Immunizations up to date: Yes Hx Diphtheria, Pertussis, Tetanus Vaccination: No Hx Pneumococcal Vaccination: 12/01/10 Review of Systems - Review of Systems Constitutional: No symptoms reported EENT: No symptoms reported Cardiovascular: See HPI Respiratory: No symptoms reported Gastrointestinal: No symptoms reported Genitourinary: No symptoms reported Female Genitourinary: No symptoms reported Musculoskeletal: No symptoms reported Skin: No symptoms reported Hematologic/Lymphatic: No symptoms reported Neurological/Psychological: See HPI Physical Exam - Vital signs Vitals: Pulse Resp BP Pulse Ox 63 18 162/83 H 95 08/26/19 14:20 08/26/19 14:20 08/26/19 14:20 08/26/19 14:20 - General General appearance: Appears well, Alert - HEENT Head: Normocephalic, Atraumatic Eyes: Normal Pupils: PERRL - Respiratory Respiratory status: No respiratory distress Chest status: Nontender Breath sounds: Normal Chest palpation: Normal - Cardiovascular Rhythm: Regular Heart sounds: Normal auscultation Murmur: No - Back Back: Normal, Nontender - Extremities General upper extremity: Normal inspection, Normal strength General lower extremity: Other - Mild swelling of left knee with no erythema able to move any with only mild pain. 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 Dr. Abraham had removed some fluid today. No recent fevers or illnesses. She is having vertiginous symptoms that started today in physical therapy that are continued seemingly keeping her eyes closed and not moving her head. Will rule out cerebellar stroke with MRI in the emergency department. 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 No significant EKG changes from prior on file. Work-up in progress 08/26/19 15:56 Dahlia case with nurse practitioner Bo at Dr. Moura's office. Will perform serial 4-hour troponins in the emergency department. If work-up is negative including MRI head will be discharged and she is scheduled at 9:30 AM this coming Friday for Holter monitor placement. 08/26/19 17:53 Normal MRI of brain, normal chest x-ray, pending serial troponin at this time. 08/26/19 19:37 Second troponin negative will be discharged at this time - Vital Signs Vital signs: Temp Pulse Resp BP Pulse Ox 98.2 F 62 15 143/72 H 98 08/26/19 14:30 08/26/19 17:55 08/26/19 18:01 08/26/19 18:01 08/26/19 18:01 - Laboratory Result Diagrams: 08/26/19 15:05 08/26/19 15:05 Laboratory results interpreted by me: 08/26/19 15:05 AST 68 H Discharge - Discharge Clinical Impression: Vertigo, Palpitations Condition: Good Disposition: HOME, SELF-CARE Prescriptions: Meclizine HCl 25 mg PO TID PRN #20 tab.chew PRN Reason: Referrals: SUNDEEP MOURA MD [EMERITUS] - Follow up as needed (Follow up on Friday with your schedule appointment on Friday at 930 for Holter monitor placement return to emergency department for any other concerns.)
--- NOTE | 2019-08-26 15:29 | RADIOLOGY REPORT (SQ) ---
EXAM DESCRIPTION: CHEST SINGLE VIEW COMPLETED DATE/TIME: 08/26/2019 2:52 pm REASON FOR STUDY: bed 10 cp COMPARISON: 01/22/2019. EXAM PARAMETERS: NUMBER OF VIEWS: One view. TECHNIQUE: Single frontal radiographic view of the chest acquired. RADIATION DOSE: NA LIMITATIONS: None. FINDINGS: LUNGS AND PLEURA: No opacities, masses or pneumothorax. No pleural effusion. MEDIASTINUM AND HILAR STRUCTURES: No masses. Contour normal. HEART AND VASCULAR STRUCTURES: Heart normal in size. Normal vasculature. BONES: No acute findings. HARDWARE: Bilateral shoulder prostheses. OTHER: No other significant finding. IMPRESSION: NO ACUTE RADIOGRAPHIC FINDING IN THE CHEST. TECHNICAL DOCUMENTATION: JOB ID: [id number] [employer]- All Rights Reserved Reading location - IP/workstation name: [email or web address]
[2019-08-26] MEDS ORDERED: MECLIZINE HCL 25 MG TABLET PO ONE (15:31)
[2019-08-26 15:37] LABS: ABSOLUTE BASOPHILS # (AUTO) 0.1 10^3/uL (0.0-0.2); ABSOLUTE EOSINOPHILS # (AUTO) 0.3 10^3/uL (0.0-0.6); ABSOLUTE LYMPHOCYTES (AUTO) 2.1 10^3/uL (0.5-4.7); ABSOLUTE MONOCYTES (AUTO) 0.6 10^3/uL (0.1-1.4); ABSOLUTE NEUT (AUTO) 3.4 10^3/uL (1.7-8.2); BASOPHILS % (AUTO) 0.9 % (0-2); EOSINOPHILS % (AUTO) 4.5 % (0-6); HEMATOCRIT 41.1 % (36.0-47.0); HEMOGLOBIN 13.4 g/dL (12.0-15.5); LYMPHOCYTES % (AUTO) 32.5 % (13-45); MEAN CORPUSCULAR HEMOGLOBIN 29.2 pg (27.0-33.4); MEAN CORPUSCULAR HGB CONC 32.7 g/dL (32.0-36.0); MEAN CORPUSCULAR VOLUME 89 fl (80-97); MONOCYTES % (AUTO) 9.8 % (3-13); PLATELET COUNT 222 10^3/uL (150-450); RED BLOOD COUNT 4.59 10^6/uL (3.72-5.28); RED CELL DISTRIBUTION WIDTH 13.7 % (11.5-14.0); SEGMENTED NEUTROPHILS % (AUTO) 52.3 % (42-78); TOTAL CELLS COUNTED % (AUTO) 100 %; WHITE BLOOD COUNT 6.6 10^3/uL (4.0-10.5)
[2019-08-26 15:45] LABS: ALBUMIN 4.3 g/dL (3.5-5.0); ALKALINE PHOSPHATASE 89 U/L (38-126); ANION GAP 9 (5-19); ASPARTATE AMINO TRANSFERASE 68 U/L (14-36); BILIRUBIN,DIRECT 0.2 mg/dL (0.0-0.4); BILIRUBIN,TOTAL 0.4 mg/dL (0.2-1.3); BLOOD UREA NITROGEN 12 mg/dL (7-20); CALCIUM 9.9 mg/dL (8.4-10.2); CARBON DIOXIDE 30 mmol/L (22-30); CHLORIDE 102 mmol/L (98-107); GLUCOSE 89 mg/dL (75-110); POTASSIUM 4.4 mmol/L (3.6-5.0); TOTAL PROTEIN 7.2 g/dL (6.3-8.2)
--- NOTE | 2019-08-26 17:13 | RADIOLOGY REPORT (SQ) ---
EXAM DESCRIPTION: MRI HEAD WITHOUT COMPLETED DATE/TIME: 08/26/2019 4:58 pm REASON FOR STUDY: vertigo while sitting still, r/o cerebellum infarc COMPARISON: CT brain from January. TECHNIQUE: Multiplanar imaging includes noncontrasted T1, T2, FLAIR, diffusion with ADC map and post gadolinium contrast T1 sequences. Images stored on PACS. CONTRAST TYPE AND DOSE: 20 mL Dotarem. RENAL FUNCTION: Not indicated. ACR Type II contrast agent associated with few, if any, unconfounded cases of NSF LIMITATIONS: None. FINDINGS: ANATOMY: No anomalies. Normal vascular flow voids. Pituitary fossa normal. CSF SPACES: Normal in size and contour. No hemorrhage. CEREBRUM: Sulci and gyri normal in size and contour. Normal white matter signal on FLAIR imaging. No evidence of hemorrhage, mass, or extraaxial fluid collection. No abnormal enhancement post contrast. POSTERIOR FOSSA: No signal alteration. No hemorrhage. No edema, masses, or mass effect. Internal delonte tory canals, cerebellopontine angles, mastoids normal. No enhancing lesions. No abnormal enhancement post contrast. DIFFUSION IMAGING: Negative for acute or subacute infarction. ORBITS: No masses. Globes normal. PARANASAL SINUSES: No fluid levels. Mucosa normal. OTHER: No other significant finding. IMPRESSION: NORMAL MRI OF THE BRAIN WITHOUT AND WITH INTRAVENOUS GADOLINIUM CONTRAST. EVIDENCE OF ACUTE STROKE: NO. TECHNICAL DOCUMENTATION: JOB ID: [id number] [employer]- All Rights Reserved Reading location - IP/workstation name: [email or web address]
[2019-08-26] MEDS ORDERED: ACETAMINOPHEN 325 MG TABLET PO ONE (18:35)
[2019-08-26 19:35] VITALS: BP 143/72
--- NOTE | 2019-08-28 09:13 | EKG REPORT ---
SEVERITY:- BORDERLINE ECG - SINUS RHYTHM BORDERLINE LEFT AXIS DEVIATION BORDERLINE R WAVE PROGRESSION, ANTERIOR LEADS : Confirmed by: Any Fuller 28-Aug-2019 09:12:57
== END 2019-08-26 19:46 | disposition home or self-care (01) ==
LOC: ER 14:20
DX: R42 Dizziness and giddiness (principal); R00.2 Palpitations; M25.462 Effusion, left knee; M25.562 Pain in left knee; J45.909 Unspecified asthma, uncomplicated; Z98.890 Other specified postprocedural states; Z98.84 Bariatric surgery status; Z87.891 Personal history of nicotine dependence; Z88.8 Allergy status to other drugs, medicaments and biological substances; Z88.5 Allergy status to narcotic agent
CPT/HCPCS: 93005; 99285; 36415; 83735; 84443; 85025; 80053; 84484; 70551; 71045; 93010; A9576; A9270 ×3; 87070; 87075; 87205; 89050

== ENCOUNTER 2019-09-01 14:57 | Emergency (ER) | payer MEDICARE, MEDICAID ==
--- NOTE | 2019-09-01 15:41 | ER Document Report ---
ED Extremity Problem, Lower - General Chief Complaint: Knee Pain Stated Complaint: KNEE PAIN Time Seen by Provider: 09/01/19 15:12 Primary Care Provider: ANISH ELIAS MD [ACTIVE STAFF] - Follow up as needed Notes: Patient is a 69-year-old female who presents to the emergency department with right knee pain. Patient states prior to arrival the right kneecap dislocated. Patient reports she has had for right knee replacements. Patient reports the last time it was dislocated spontaneously was in January of this year. Patient reports she was leaning over to get her cell phone when her kneecap popped out of place. Patient reports she did see Dr. Elias last week to have fluid removed from the knee. She reports she did see him yesterday as well for a follow-up and was told she needed to wear a knee brace. Patient was not currently wearing a knee brace at that time. Patient reports that on arrival to the emergency department her knee return to its normal positioning. Patient reports she does normally have burning and stinging to the right lower extremity. Patient reports the burning and stinging to the right medial foot is new since the dislocation. Patient denies pain at this time. Patient reports over the past 2 weeks she has had more swelling to the knee. Patient reports over the past month she has been more active. TRAVEL OUTSIDE OF THE [place] IN LAST 30 DAYS: No - Related Data Allergies/Adverse Reactions: divalproex sodium [From Depakote] Allergy (Intermediate, Verified 08/26/19 14:33) swelling of ankles/feet nalbuphine HCl [From Nubain] Allergy (Intermediate, Verified 08/26/19 14:33) rash/itch pregabalin [From Lyrica] Adverse Reaction (Verified 08/26/19 14:33) Past Medical History - General Information source: Patient - Social History Smoking Status: Unknown if Ever Smoked Frequency of alcohol use: None Drug Abuse: None Lives with: Family Family History: Arthritis, CAD, CVA, DM, Hyperlipidemia, Hypertension, Malignancy, Thyroid Disfunction Patient has suicidal ideation: No Patient has homicidal ideation: No - Past Medical History Cardiac Medical History: Reports: Hx Atrial Fibrillation - Dx 2005, denies Rx, 06/07/15 Cardiac note, Dr Moura does not include A fib Dx, Hx DVT, Hx Hypercholesterolemia Denies: Hx Congestive Heart Failure, Hx Coronary Artery Disease, Hx Heart Attack, Hx Hypertension - NO MEDS PRESENTLY SINCE 2013, Hx Peripheral Vascular Disease, Hx Pulmonary Embolism, Hx Heart Murmur Pulmonary Medical History: Reports: Hx Asthma, Hx Bronchitis, 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 Denies: Hx Cerebrovascular Accident, Hx Seizures Endocrine Medical History: Reports: None Renal/ Medical History: Reports: None. Denies: Hx End Stage Renal Disease, Hx Kidney Stones, Hx Peritoneal Dialysis Malignancy Medical History: Reports: None. Denies: Hx Leukemia, Hx Lung Cancer GI Medical History: Reports: Hx Gastroesophageal Reflux Disease - Thank you, Hx Irritable Bowel - For some Mycolog letter to the most good Mycolog after performing a Medical, Hx Colonoscopy, Hx Endoscopy - Ointment. Denies: Hx Crohn's Disease - denies, Hx Hepatitis, Hx Hiatal Hernia, Hx Liver Failure, Hx Pancreatitis, Hx Ulcer Musculoskeletal Medical History: Reports Hx Arthritis, Denies Hx Fibromyalgia, Denies Hx Muscular Dystrophy, Reports Hx Musculoskeletal Deformity, Reports Hx Musculoskeletal Trauma Skin Medical History: Reports None Psychiatric Medical History: Reports: Hx Bipolar Disorder - Dx'ed 1993, Hx Depression, Hx Schizophrenia - Dx'ed 1999 Denies: Hx Post Traumatic Stress Disorder Traumatic Medical History: Reports: Hx Fractures - Ankle Infectious Medical History: Reports: None. Denies: Hx Hepatitis, Hx HIV Past Surgical History: Reports: Hx Abdominal Surgery - 2 HERNIA REPAIRS, Hx Appendectomy - incidental with gastric bypass, Hx Gastric Bypass Surgery - 1985, revision 2009, Hx Herniorrhaphy - multiple ventral/umbilical, mesh inserted with last surgical intervention, Hx Nose Surgery, Hx Open Heart Surgery - CATHS X 2, Hx Orthopedic Surgery - back, shoulder, bilateral knee replacement, Hx Tubal Ligation. Denies: Hx Bowel Surgery, Hx Section, Hx Cholecystectomy, Hx Colostomy, Hx Coronary Artery Bypass Graft, Hx Hysterectomy, Hx Mastectomy, Hx Pacemaker, Hx Tonsillectomy - Immunizations Immunizations up to date: Yes Hx Diphtheria, Pertussis, Tetanus Vaccination: No Hx Pneumococcal Vaccination: 12/01/10 Review of Systems - Review of Systems Constitutional: No symptoms reported EENT: No symptoms reported Cardiovascular: No symptoms reported Respiratory: No symptoms reported Gastrointestinal: No symptoms reported Genitourinary: No symptoms reported Female Genitourinary: No symptoms reported Musculoskeletal: See HPI Skin: No symptoms reported Hematologic/Lymphatic: No symptoms reported Neurological/Psychological: No symptoms reported Physical Exam - Vital signs Vitals: Temp Pulse Resp BP 98.3 F 81 16 149/74 H 09/01/19 14:57 09/01/19 14:57 09/01/19 14:57 09/01/19 14:57 - Notes Notes: GENERAL: Well-appearing, well-nourished and in no acute distress. HEAD: Atraumatic, normocephalic. EYES: Pupils equal round and reactive to light, extraocular movements intact, sclera anicteric, conjunctiva are normal. ENT: Nares patent, oropharynx clear without exudates. Moist mucous membranes. NECK: Normal range of motion, supple without lymphadenopathy or JVD. LUNGS: Breath sounds clear to auscultation bilaterally and equal. No wheezes rales or rhonchi. HEART: Regular rate and rhythm without murmurs, rubs or gallops. ABDOMEN: Soft, nontender, normoactive bowel sounds. No guarding, no rebound. No masses appreciated. BACK: No cervical, thoracic, lumbar midline tenderness. No saddle anesthesia, normal distal neurovascular exam. GENITOURINARY: Deferred. EXTREMITIES: Normal range of motion, patient is able to flex and extend the right knee joint, no erythema. + soft tissue swelling, patella midline, no obvious dislocation at this time. + 2 dorsalis pedis, posterior tibial, popliteal pulses palpated. Patient is able to flex and extend the foot. NEUROLOGICAL: Cranial nerves II through XII grossly intact. Normal speech, normal gait. PSYCH: Normal mood, normal affect. SKIN: Warm, Dry, normal turgor, no rashes or lesions noted. Course - Re-evaluation Re-evalutation: 09/01/19 16:[address] Barnett who is our invertebrate paleontologist orthopedist. I did explain to him that the patient is having intermittent numbness and tingling to the foot which is new since having the patella dislocate. Patient does have easily palpable +2 dorsalis pedis, posterior tibial and popliteal pulses. He states that this time he does not believe from my report and assessment a CT is necessary. He does report if the patient is able to tolerate place her in a knee immobilizer and have her follow-up with Dr. Elias as that is her orthopedist. 09/01/19 16:39 I did discuss the conversation with the orthopedist with the patient. I will place her in a knee immobilizer. Patient reports she has worn these plenty of times and has one at home but that the straps are broken. We will provide her with a new immobilizer here in the emergency department. Patient verbalized understanding and strict return precautions given. - Vital Signs Vital signs: Temp Pulse Resp BP Pulse Ox 98.3 F 81 16 149/74 H 09/01/19 14:57 09/01/19 14:57 09/01/19 14:57 09/01/19 14:57 - Diagnostic Test Radiology reviewed: Reports reviewed Radiology results interpreted by me: 09/01/19 16:24 Knee X-Ray 09/01/19 15:28 IMPRESSION: Soft tissue swelling anteriorly. No evidence of an acute fracture or dislocation on current images. Discharge - Discharge Clinical Impression: Swelling of right knee joint Right knee pain Qualifiers: Chronicity: chronic Qualified Code(s): M25.561 - Pain in right knee Condition: Stable Disposition: HOME, SELF-CARE Additional Instructions: Today you are seen in the emergency department after a possible dislocation of the right knee cap (patella). This did spontaneously correct itself on arrival to the hospital. We did obtain an x-ray which did not show an acute dislocation or fracture. You do have some soft tissue swelling around the knee. Since you do follow Dr. Elias closely I would recommend calling his office tomorrow to make a follow-up appointment. Please return to the emergency department if you have any new numbness or tingling below the knee, discoloration of the right lower extremity, increased swelling, redness around the knee, fever or inability to move the knee joint. Referrals: ANISH ELIAS MD [ACTIVE STAFF] - Follow up as needed
--- NOTE | 2019-09-01 16:18 | RADIOLOGY REPORT (SQ) ---
EXAM DESCRIPTION: KNEE RIGHT 4 VIEWS COMPLETED DATE/TIME: 09/01/2019 4:03 pm REASON FOR STUDY: right knee dislocated prior to arrival COMPARISON: 02/03/2019 NUMBER OF VIEWS: Four views. TECHNIQUE: AP, lateral, and both oblique radiographic images acquired of the right knee. LIMITATIONS: None. FINDINGS: MINERALIZATION: Normal. BONES: Prior total knee replacement. No acute fracture. No evidence of acute dislocation. JOINT: Prior total knee replacement. SOFT TISSUES: There is soft tissue swelling anteriorly. OTHER: No other significant finding. IMPRESSION: Soft tissue swelling anteriorly. No evidence of an acute fracture or dislocation on cur rent images. TECHNICAL DOCUMENTATION: JOB ID: [id number] [employer]- All Rights Reserved Reading location - IP/workstation name: [email or web address]
[2019-09-01 16:51] VITALS: BP 141/104
== END 2019-09-01 17:03 | disposition home or self-care (01) ==
LOC: ER 14:57
DX: M25.561 Pain in right knee (principal); G89.29 Other chronic pain; M25.461 Effusion, right knee; R20.2 Paresthesia of skin; R20.0 Anesthesia of skin; J45.909 Unspecified asthma, uncomplicated; Z91.19 Patient's noncompliance with other medical treatment and regimen; Z96.653 Presence of artificial knee joint, bilateral; Z98.84 Bariatric surgery status; Z88.8 Allergy status to other drugs, medicaments and biological substances; Z88.5 Allergy status to narcotic agent
CPT/HCPCS: 99283; 73564; L1830

== ENCOUNTER → 2019-09-23 | Outpatient (CLI) | payer MEDICARE, MEDICAID ==
[2019-09-23 17:03] LABS: APPEARANCE,URINE SLIGHTLY-CLOUDY; BILIRUBIN,URINE NEGATIVE (NEGATIVE); COLOR,URINE YELLOW; GLUCOSE, URINE NEGATIVE (NEGATIVE); KETONES,URINE NEGATIVE (NEGATIVE); LEUKOCYTE ESTERASE,URINE TRACE (NEGATIVE); NITRITE,URINE NEGATIVE (NEGATIVE); PROTEIN,URINE NEGATIVE (NEGATIVE); URINE SPECIFIC GRAVITY 1.009; UROBILINOGEN,URINE NEGATIVE mg/dL (<2.0)
[2019-09-23 17:04] LABS: ABSOLUTE EOSINOPHILS # (AUTO) 0.2 10^3/uL (0.0-0.6); ABSOLUTE LYMPHOCYTES (AUTO) 1.7 10^3/uL (0.5-4.7); ABSOLUTE MONOCYTES (AUTO) 0.5 10^3/uL (0.1-1.4); ABSOLUTE NEUT (AUTO) 4.5 10^3/uL (1.7-8.2); BASOPHILS % (AUTO) 0.7 % (0-2); EOSINOPHILS % (AUTO) 2.6 % (0-6); HEMATOCRIT 38.9 % (36.0-47.0); HEMOGLOBIN 12.8 g/dL (12.0-15.5); LYMPHOCYTES % (AUTO) 24.2 % (13-45); MEAN CORPUSCULAR HEMOGLOBIN 28.7 pg (27.0-33.4); MEAN CORPUSCULAR VOLUME 87 fl (80-97); MONOCYTES % (AUTO) 6.7 % (3-13); PLATELET COUNT 211 10^3/uL (150-450); RED BLOOD COUNT 4.48 10^6/uL (3.72-5.28); RED CELL DISTRIBUTION WIDTH 13.4 % (11.5-14.0); SEGMENTED NEUTROPHILS % (AUTO) 65.8 % (42-78); TOTAL CELLS COUNTED % (AUTO) 100 %; WHITE BLOOD COUNT 6.9 10^3/uL (4.0-10.5)
[2019-09-23 17:25] LABS: ANION GAP 8 (5-19); BLOOD UREA NITROGEN 13 mg/dL (7-20); CALCIUM 9.7 mg/dL (8.4-10.2); CARBON DIOXIDE 31 mmol/L (22-30); CHLORIDE 104 mmol/L (98-107); GLUCOSE 92 mg/dL (75-110)
--- NOTE | 2019-09-23 18:39 | RADIOLOGY REPORT (SQ) ---
EXAM DESCRIPTION: CHEST PA/LATERAL COMPLETED DATE/TIME: 09/23/2019 3:58 pm REASON FOR STUDY: PRE-OP COMPARISON: 08/26/2019 EXAM PARAMETERS: NUMBER OF VIEWS: two views TECHNIQUE: Digital Frontal and Lateral radiographic views of the chest acquired. RADIATION DOSE: NA LIMITATIONS: none FINDINGS: LUNGS AND PLEURA: No opacities, masses or pneumothorax. No pleural effusion. MEDIASTINUM AND HILAR STRUCTURES: No masses or contour abnormalities. HEART AND VASCULAR STRUCTURES: Heart normal size. No evidence for failure. BONES: No acute findings. HARDWARE: None in the chest. Bilateral shoulder arthroplasties. OTHER: No other significant finding. IMPRESSION: NO SIGNIFICANT RADIOGRAPHIC FINDING IN THE CHEST. TECHNICAL DOCUMENTATION: JOB ID: [id number] [employer]- All Rights Reserved Reading location - IP/workstation name: [email or web address]
--- NOTE | 2019-09-23 20:19 | EKG REPORT ---
SEVERITY:- ABNORMAL ECG - SINUS OR ECTOPIC ATRIAL RHYTHM PROBABLE INFERIOR INFARCT, OLD BORDERLINE R WAVE PROGRESSION, ANTERIOR LEADS : Confirmed by: Hilda Valderrama MD 23-Sep-2019 20:19:00
== END ==
LOC: OD 15:31
PROVIDERS: ATTEND Orthopaedic Surgery
DX: Z01.810 Encounter for preprocedural cardiovascular examination (principal); Z01.811 Encounter for preprocedural respiratory examination; Z01.812 Encounter for preprocedural laboratory examination; M17.11 Unilateral primary osteoarthritis, right knee
CPT/HCPCS: 36415; 71046; 80048; 81001; 85025; 93005; 93010

== ENCOUNTER 2019-10-11 07:05 | Inpatient (IN) | payer MEDICARE, MEDICAID ==
[~2019-10-11 07:05] MED LIST changes: +BUPIVACAINE INJ/PF LIPOSOME/PF 266 MG/20 ML SDV INJ PRN; +CEFAZOLIN INJ 1 GM VIAL IV PRN; +IBUPROFEN 800 MG in NORMAL SALINE 250 ML IV PRN; +LACTATED RINGERS 1000 ML IV PRN; +LIDOCAINE 0.5% INJ-PF (5 MG/ML) 50 ML SDV SUBCUT PRN; +OXYCODONE HCL SR 10 MG TABLET PO PRN; +PANTOPRAZOLE SODIUM 20 MG TABLET.DR PO PRN; -REGADENOSON INJ 0.4 MG/5 ML DISP.SYRIN IV ONE; +VANCOMYCIN HCL 1,000 MG in DEXTROSE 5%-WATER 250 ML IV PRN
[2019-10-11] MEDS ORDERED: OXYCODONE HCL SR 10 MG TABLET PO ONE (08:38)
[2019-10-11] MEDS ORDERED: PANTOPRAZOLE SODIUM 20 MG TABLET.DR PO ONE (08:38)
[2019-10-11] MEDS ORDERED: MIDAZOLAM 2 MG/2 ML INJ ONE (09:17)
[2019-10-11] MEDS ORDERED: TRANEXAMIC ACID INJ/PF 1,000 MG/10 ML SDV ONE ×2 (09:17→16:02)
[2019-10-11] MEDS ORDERED: PROPOFOL INJ 200 MG/20 ML VIAL IV ONE ×2 (09:17→14:02)
[2019-10-11] MEDS ORDERED: KETAMINE HCL INJ 500 MG/10 ML VIAL ONE (09:17)
[2019-10-11] MEDS ORDERED: FENTANYL CITRATE INJ/PF 100 MCG/2 ML AMPUL ONE (09:17)
[2019-10-11] MEDS ORDERED: CEFAZOLIN INJ 1 GM VIAL ONE (09:52)
[2019-10-11] MEDS ORDERED: VANCOMYCIN HCL INJ 1000 MG VIAL ONE (09:52)
[2019-10-11] MEDS ORDERED: EPINEPHRINE INJ/PF 1 MG/1 ML AMPULE ONE (10:06)
[2019-10-11] MEDS ORDERED: ALBUTEROL SULFATE HFA (90 MCG/PUFF) 200 PUFF/8.5 GM MDI IH PRN (15:06)
--- NOTE | 2019-10-11 15:06 | Operative Report ---
Operative Report DATE OF SURGERY: 10/11/19 PREOPERATIVE DIAGNOSIS: Mechanical failure right knee arthroplasty OPERATION: Right knee arthroplasty SURGEON: ANISH ELIAS ANESTHESIA: Spinal TISSUE REMOVED OR ALTERED: Cultures to microbiology. Implants to CSS ESTIMATED BLOOD LOSS: 200 PROCEDURE: Implants used: Femur: Reeds distal femoral replacement system Small right GMR S distal femoral component 3 degree bumper 13 mm tibial insert Size to [facility] tibial baseplate 15 x 80 mm tibial stem 17 x 127 mm femoral stem Procedure with the patient supine on the operating table the right the limb is prepped and draped in a sterile fashion. The limb was elevated for exsanguination and the tourniquet inflated to 280 torr. A standard midline median parapatellar approach the knee is taken. Upon entering the joint capsule large amount of fluid is in encountered as expected. This is sent for culture and sensitivity. The existing tibial spacer is removed uneventfully. The existing femoral component is identified. Cement is cut using an oscillating TPS saw. It subsequently disimpacted from the femoral shaft without undue difficulty. The Backdoor ultrasound cement removing device is used to remove cement from the canal. Approximately 2 cm of distal femur resected using an oscillating saw. A trial reduction of a 17 mm curved by 127 mm stem is performed and this is judged to be adequate. Attention was next turned to the tibia. The femoral component is well fixed with a 15 mm ingrowth spacer underneath the standard tibial component. In an attempt to get down to the well fixed tibial stem the tibial component is disassembled. In doing so within the proximal tibia there is a tantalum wedge just underneath the extensor mechanism attachment or the tibial tubercle. I was afraid that if I attempted to remove the tantalum home that I would destroy enough bone that I would lose the extensor mechanism. There by an anterior medial longitudinal osteotomy was made of the tibia to gain access to the stem of the cement mantle. The cement mantle was broken and the tibial stem was subsequently disimpacted. Using combination of cement removal tools the cement plug is removed uneventfully. The yoke on the tended tibial component does not fit through the tantalum wedge and hence the terminal wedge is removed internally using a bur to allow passage of the tibial component. At this point a trial reduction was performed with a small femur without 127 stem and a 13 mm tibial spacer. The knee comes out to extension with further flexion to 120 degrees. All trial implants were removed. Polymethylmethacrylate Romycin and vancomycin is mixed and used to cement the tibial component in place. This is cured a an additional batch of cement with vancomycin and tobramycin was mixed and used to cement the femoral component in place. The rotating-hinge is then assembled using the appropriate pieces uneventfully. On adequate curing the cement excess cement was removed the tourniquet was deflated hemostasis obtained the wound is then closed in layers using interrupted Vicryl followed by timothy. A sterile compressive dressing was applied and the patient returned to recovery room in satisfactory condition.
[2019-10-11] MEDS ORDERED: RINGERS SOLUTION,LACTATED 1,000 ML IV PRN (15:08)
[2019-10-11] MEDS ORDERED: DIPHENHYDRAMINE HCL 50 MG/ML VIAL IV PRN (15:08)
[2019-10-11] MEDS ORDERED: ONDANSETRON 4 MG TAB.RAPDIS PO PRN (15:08)
[2019-10-11] MEDS ORDERED: MAG HYDROX/AL HYDROX/SIMETH SUSP 30 ML UDCUP PO PRN (15:08)
[2019-10-11] MEDS ORDERED: ZOLPIDEM TARTRATE 5 MG TABLET PO PRN (15:08)
--- NOTE | 2019-10-11 16:03 | RADIOLOGY REPORT (SQ) ---
EXAM DESCRIPTION: KNEE RIGHT 2 VIEWS COMPLETED DATE/TIME: 10/11/2019 3:55 pm REASON FOR STUDY: Post OP -Long Cassette in PACU Z96.652 PRESENCE OF LEFT ARTIFICIAL KNEE JOINT COMPARISON: 09/01/2019 NUMBER OF VIEWS: Two view(s). TECHNIQUE: Digital radiographic images of the right knee post-procedure. LIMITATIONS: None. FINDINGS: BONES: No worrisome or unexpected findings post-procedure. DEVICE: Total knee arthroplasty SOFT TISSUES: No worrisome findings. Expected postoperative soft tissue changes. IMPRESSION: Status post revision of the total knee arthroplasty. Please refer to the operative repo rt for further discussion. TECHNICAL DOCUMENTATION: JOB ID: [id number] [employer]- All Rights Reserved Reading location - IP/workstation name: [email or web address]
[2019-10-11] MEDS ORDERED: TRANEXAMIC ACID INJ/PF 1,000 MG/10 ML SDV IV ONE ×2 (16:30→18:00)
[2019-10-11] MEDS: SENNOSIDES/DOCUSATE 8.6-50 MG 1 EACH TABLET PO SCH (17:38)
[2019-10-11] MEDS: OXYCODONE HCL IR 5 MG TABLET PO PRN ×2 (17:38→23:30)
[2019-10-11] MEDS ORDERED: CYCLOSPORINE OU SCH (18:00)
[2019-10-11] MEDS: IBUPROFEN 800 MG in NORMAL SALINE 250 ML IV SCH (18:59)
[2019-10-11] MEDS: ACETAMINOPHEN 325 MG TABLET PO PRN (20:43)
[2019-10-11] MEDS ORDERED: TRAZODONE HCL 75 MG PO SCH (22:00)
[2019-10-11] MEDS: TRAZODONE HCL 50 MG TABLET PO SCH (22:15)
[2019-10-11] MEDS: GABAPENTIN 300 MG CAPSULE PO SCH (22:15)
[2019-10-11] MEDS: EZETIMIBE 10 MG TABLET PO SCH (22:16)
[2019-10-11] MEDS: CYCLOSPORINE 0.05% OPH EMULSIO 0.4 ML DROPERETTE OU SCH (22:16)
[2019-10-11] MEDS: QUETIAPINE FUMARATE 25 MG TABLET PO SCH (22:16)
[2019-10-11] MEDS: DIAZEPAM 2 MG TABLET PO PRN (23:37)
[2019-10-12] MEDS: ACETAMINOPHEN 325 MG TABLET PO PRN ×4 (00:31→21:32)
[2019-10-12] MEDS: IBUPROFEN 800 MG in NORMAL SALINE 250 ML IV SCH ×3 (02:04→18:38)
[2019-10-12] MEDS ORDERED: VANCOMYCIN HCL 1,000 MG in DEXTROSE 5%-WATER 250 ML IV ONE (03:08)
[2019-10-12] MEDS: PANTOPRAZOLE SODIUM 40 MG TABLET.DR PO SCH (05:16)
[2019-10-12 05:45] LABS: HEMATOCRIT 31.4 % (36.0-47.0); HEMOGLOBIN 10.4 g/dL (12.0-15.5); MEAN CORPUSCULAR HEMOGLOBIN 28.7 pg (27.0-33.4); MEAN CORPUSCULAR HGB CONC 33.2 g/dL (32.0-36.0); MEAN CORPUSCULAR VOLUME 87 fl (80-97); PLATELET COUNT 148 10^3/uL (150-450); RED BLOOD COUNT 3.62 10^6/uL (3.72-5.28); RED CELL DISTRIBUTION WIDTH 13.2 % (11.5-14.0); WHITE BLOOD COUNT 5.3 10^3/uL (4.0-10.5)
[2019-10-12] MEDS: OXYCODONE HCL IR 5 MG TABLET PO PRN ×3 (05:52→18:47)
[2019-10-12 06:24] LABS: ANION GAP 7 (5-19); BLOOD UREA NITROGEN 13 mg/dL (7-20); CALCIUM 8.4 mg/dL (8.4-10.2); CARBON DIOXIDE 27 mmol/L (22-30); CHLORIDE 107 mmol/L (98-107); GLUCOSE 117 mg/dL (75-110); POTASSIUM 3.7 mmol/L (3.6-5.0)
--- NOTE | 2019-10-12 07:15 | PDOC PROGRESS REPORT ---
Subjective Progress Note for:: 10/12/19 Reason For Visit: Z96.652 PRESENCE OF LEFT ARTIFICIAL KNEE JOINT 69-year-old white female now postop day 1 status post right knee revision arthroplasty. Patient has an uneventful postoperative course but is complaining of pain this morning. Physical Exam Vital Signs: Temp Pulse Resp BP Pulse Ox 36.8 C 68 16 96/55 L 94 10/11/19 23:18 10/11/19 23:18 10/11/19 23:18 10/11/19 23:18 10/11/19 23:18 Intake & Output 10/11/19 10/12/19 10/13/19 06:59 06:59 06:59 Intake Total 9222 Output Total 8050 Balance 1172 Weight 102.8 kg General appearance: PRESENT: no acute distress, mild distress Respiratory exam: PRESENT: unlabored Cardiovascular exam: PRESENT: RRR Extremities exam: PRESENT: other - Lower extremity compressive dressing and knee immobilizer. Distal neurovascular examination is intact. Neurological exam: PRESENT: alert, awake, oriented to person, oriented to place, oriented to time, oriented to situation. ABSENT: motor sensory deficit Psychiatric exam: PRESENT: appropriate affect, normal mood. ABSENT: homicidal ideation, suicidal ideation Skin exam: PRESENT: dry, intact, warm. ABSENT: cyanosis, rash Results Laboratory Results: 10/12/19 04:37 10/12/19 04:37 10/11/19 10/12/19 10/12/19 08:25 04:37 04:37 WBC 5.3 RBC 3.62 L Hgb 10.4 L Hct 31.4 L MCV 87 MCH 28.7 MCHC 33.2 RDW 13.2 Plt Count 148 L Sodium 141.1 Potassium 4.5 3.7 Chloride 107 Carbon Dioxide 27 Anion Gap 7 BUN 13 Creatinine 0.61 Est GFR ( Amer) > 60 Glucose 117 H Calcium 8.4 Impressions: Knee X-Ray 10/11/19 15:10 IMPRESSION: Status post revision of the total knee arthroplasty. Please refer to the operative report for further discussion. Status: Imported from PACS Assessment & Plan - Diagnosis (1) Mechanical complication of internal orthopedic device, implant, and graft Qualifiers: Encounter type: subsequent encounter Qualified Code(s): T84.498D - Other mechanical complication of other internal orthopedic devices, implants and grafts, subsequent encounter Is this a current diagnosis for this admission?: Yes Plan: Mobilized with physical therapy on touchdown weightbearing restriction with gentle range of motion - Time Time Spent with patient: 15-24 minutes Anticipated discharge: Home with Homehealth Within: Other
[2019-10-12] MEDS: DIAZEPAM 2 MG TABLET PO PRN (09:57)
[2019-10-12] MEDS: MAGNESIUM OXIDE 400 MG TABLET PO SCH (09:57)
[2019-10-12] MEDS: PRENATAL VITAMIN W DHA CAPSULE PO SCH (09:57)
[2019-10-12] MEDS: SENNOSIDES/DOCUSATE 8.6-50 MG 1 EACH TABLET PO SCH ×2 (09:58→17:35)
[2019-10-12] MEDS: CYCLOSPORINE 0.05% OPH EMULSIO 0.4 ML DROPERETTE OU SCH ×2 (09:58→21:33)
[2019-10-12] MEDS: GABAPENTIN 300 MG CAPSULE PO SCH ×2 (09:58→21:31)
[2019-10-12] MEDS: ASPIRIN 81 MG TABLET, CHEWABLE PO SCH (09:58)
[2019-10-12] MEDS: CHOLECALCIFEROL (D3) 1,000 UNIT (25 MCG) TABLET PO SCH (09:58)
[2019-10-12] MEDS ORDERED: (PENDING PHARMACY ID) (Magnesium Oxide [Magnesium] 400 MG) PO SCH (10:00)
[2019-10-12] MEDS: QUETIAPINE FUMARATE 25 MG TABLET PO SCH (21:31)
[2019-10-12] MEDS: TRAZODONE HCL 50 MG TABLET PO SCH (21:31)
[2019-10-12] MEDS: EZETIMIBE 10 MG TABLET PO SCH (21:32)
[2019-10-13] MEDS: IBUPROFEN 800 MG in NORMAL SALINE 250 ML IV SCH ×2 (01:49→10:25)
[2019-10-13] MEDS: PANTOPRAZOLE SODIUM 40 MG TABLET.DR PO SCH (05:21)
[2019-10-13 08:22] LABS: HEMATOCRIT 30.6 % (36.0-47.0); HEMOGLOBIN 10.2 g/dL (12.0-15.5); MEAN CORPUSCULAR HEMOGLOBIN 28.9 pg (27.0-33.4); MEAN CORPUSCULAR HGB CONC 33.3 g/dL (32.0-36.0); MEAN CORPUSCULAR VOLUME 87 fl (80-97); PLATELET COUNT 141 10^3/uL (150-450); RED BLOOD COUNT 3.52 10^6/uL (3.72-5.28); RED CELL DISTRIBUTION WIDTH 13.4 % (11.5-14.0); WHITE BLOOD COUNT 5.8 10^3/uL (4.0-10.5)
[2019-10-13] MEDS: PRENATAL VITAMIN W DHA CAPSULE PO SCH (10:22)
[2019-10-13] MEDS: SENNOSIDES/DOCUSATE 8.6-50 MG 1 EACH TABLET PO SCH ×2 (10:22→19:45)
[2019-10-13] MEDS: ASPIRIN 81 MG TABLET, CHEWABLE PO SCH (10:22)
[2019-10-13] MEDS: CHOLECALCIFEROL (D3) 1,000 UNIT (25 MCG) TABLET PO SCH (10:22)
[2019-10-13] MEDS: MAGNESIUM OXIDE 400 MG TABLET PO SCH (10:23)
[2019-10-13] MEDS: GABAPENTIN 300 MG CAPSULE PO SCH ×2 (10:23→21:10)
[2019-10-13] MEDS: OXYCODONE HCL SR 10 MG TABLET PO SCH ×2 (10:23→21:09)
[2019-10-13] MEDS: OXYCODONE HCL IR 5 MG TABLET PO PRN (16:42)
[2019-10-13] MEDS: QUETIAPINE FUMARATE 25 MG TABLET PO SCH (21:10)
[2019-10-13] MEDS: TRAZODONE HCL 50 MG TABLET PO SCH (21:10)
[2019-10-13] MEDS: EZETIMIBE 10 MG TABLET PO SCH (21:10)
[2019-10-13] MEDS: CYCLOSPORINE 0.05% OPH EMULSIO 0.4 ML DROPERETTE OU SCH (21:10)
[2019-10-14] MEDS: ACETAMINOPHEN 325 MG TABLET PO PRN ×3 (00:37→16:27)
[2019-10-14] MEDS: OXYCODONE HCL IR 5 MG TABLET PO PRN ×2 (02:59→16:27)
[2019-10-14] MEDS: PANTOPRAZOLE SODIUM 40 MG TABLET.DR PO SCH (05:40)
[2019-10-14 06:10] LABS: HEMATOCRIT 33.8 % (36.0-47.0); HEMOGLOBIN 11.2 g/dL (12.0-15.5); MEAN CORPUSCULAR HEMOGLOBIN 28.5 pg (27.0-33.4); MEAN CORPUSCULAR HGB CONC 33.2 g/dL (32.0-36.0); MEAN CORPUSCULAR VOLUME 86 fl (80-97); PLATELET COUNT 157 10^3/uL (150-450); RED BLOOD COUNT 3.93 10^6/uL (3.72-5.28); RED CELL DISTRIBUTION WIDTH 13.3 % (11.5-14.0); WHITE BLOOD COUNT 7.1 10^3/uL (4.0-10.5)
--- NOTE | 2019-10-14 07:32 | PDOC TRANSFER SUMMARY ---
Impression - Admit/DC Date/PCP Admission Date/Primary Care Provider: 10/11/19 07:57 DIANA SAWYER MD Discharge Date: 10/14/19 - Discharge Diagnosis (1) Mechanical complication of internal orthopedic device, implant, and graft Is this a current diagnosis for this admission?: Yes (2) Febrile Is this a current diagnosis for this admission?: Yes - Additional Information Resuscitation Status: Full Code Discharge Diet: Regular Discharge Activity: Balance Activity w/Rest, No tub bath, Other - Touchdown weightbearing restriction right lower extremity Referrals: DIANA SAWYER MD [Primary Care Provider] - Prescriptions: Oxycodone HCl [Oxy-Ir 5 mg Tablet] 5 mg PO Q6HP PRN #40 tablet PRN Reason: Aspirin [Adult Low Dose Aspirin EC] 81 mg PO DAILY #12 tablet.dr Home Medications: Albuterol Sulfate [Proair HFA Inhalation Aerosol 8.5 gm MDI] 2 puff IH Q6HP PRN 10/11/19 Aspirin [Aspirin 81 mg Chewable Tablet] 81 mg PO DAILY 10/11/19 Cholecalciferol (Vitamin D3) [Vitamin D3 1000 Unit Tablet] 1,000 unit PO DAILY 10/11/19 Cyclosporine 0.05% Oph Emulsio [Restasis 0.05% Oph Emulsion Pf 0.4 ml] 1 drop OU Q12 10/11/19 Diazepam [Valium 2 mg Tablet] 1 mg PO DAILYP PRN 10/11/19 Ezetimibe [Zetia 10 mg Tablet] 10 mg PO QHS 10/11/19 Furosemide [Lasix 20 mg Tablet] 20 mg PO DAILYP PRN 10/11/19 Gabapentin [Neurontin 300 mg Capsule] 300 mg PO Q12 10/11/19 Lubiprostone [Amitiza 24 Mcg Capsule] 24 mcg PO BIDP PRN 10/11/19 Magnesium Oxide [Mag-Ox 400 mg Tablet] 400 mg PO DAILY 10/11/19 Meclizine HCl [Antivert 25 mg Tablet] 25 mg PO BIDP PRN 10/11/19 Multivitamin [Tab-A-Angely (Multiple Vitamin) Tablet] 1 tab PO DAILY 10/11/19 Nitroglycerin [Nitrostat 0.4 mg (1/150 Gr) Tabs 25/Bottle] 1 tab SL Q5MP PRN 10/11/19 [place]-3 Acid Ethyl Esters [Lovaza 1 gm Capsule] 1 gm PO DAILY 10/11/19 Ondansetron [Zofran Odt 4 mg Tablet] 4 mg PO Q6HP PRN 10/11/19 Potassium Chloride [Klor-Con 10 Meq Capsule ER] 20 meq PO DAILY 10/11/19 Quetiapine Fumarate [Seroquel 25 mg Tablet] 25 mg PO QHS 10/11/19 Tramadol HCl [Ultram 50 mg Tablet] 50 mg PO BIDP PRN 10/11/19 Trazodone HCl [Desyrel] 75 mg PO QHS 10/11/19 Aspirin [Adult Low Dose Aspirin EC] 81 mg PO DAILY #12 tablet. 10/14/19 Oxycodone HCl [Oxy-Ir 5 mg Tablet] 5 mg PO Q6HP PRN #40 tablet 10/14/19 History of Present Illiness History of Present Illness: DANNY BAPTISTE is a 69 year old female Patient is a 69-year-old white female status post a revision right knee arthroplasty in the distant past now with mechanical instability and recurrent femoral-tibial dislocation patient is admitted for elective right knee revision arthroplasty. Hospital Course Hospital Course: The patient is admitted through the operating where she undergoes a relatively complicated right knee revision arthroplasty involving removal of an extensively cemented stemmed component as well as tantalum metal ingrowth components. A rotating-hinge knee arthroplasty is implanted. She is returned to the floor in satisfactory condition. Significant problems with pain control initially because she refused the administration of OxyContin initially. Once the OxyContin had been supplied her pain control seems to be better. She is also demonstrated a single febrile episode 102.5 Fahrenheit. Progress with physical therapy has been restricted to a touchdown weightbearing basis and has been relatively limited. Physical Exam Vital Signs: Temp Pulse Resp BP Pulse Ox 37.6 C 87 18 121/66 99 10/12/19 23:00 10/12/19 23:00 10/12/19 23:00 10/12/19 23:00 10/12/19 23:00 Intake & Output 10/13/19 10/14/19 10/15/19 06:59 06:59 06:59 Intake Total 2870 1722 Output Total 3400 1551 Balance -530 171 Weight 113.8 kg General appearance: PRESENT: no acute distress, mild distress, obese Head exam: PRESENT: normocephalic Respiratory exam: PRESENT: unlabored Cardiovascular exam: PRESENT: RRR Pulses: PRESENT: +1 pedal pulses bilateral Vascular exam: PRESENT: normal capillary refill GI/Abdominal exam: PRESENT: soft Rectal exam: PRESENT: deferred Musculoskeletal exam: PRESENT: other - Right knee OpSite dressing was taken down on the second postoperative morning in light of the febrile episode overnight. The wound is well approximated with timothy and is clean dry and intact. There is minimal erythema and induration. Overall clinical suspicion of an underlying infection is somewhat limited. Neurological exam: PRESENT: alert, awake, oriented to person, oriented to place, oriented to time, oriented to situation. ABSENT: motor sensory deficit Psychiatric exam: PRESENT: appropriate affect, normal mood. ABSENT: homicidal ideation, suicidal ideation Skin exam: PRESENT: dry, intact, warm. ABSENT: cyanosis, rash Results Laboratory Results: WBC 7.1 10^3/uL (4.0-10.5) 10/14/19 04:37 RBC 3.93 10^6/uL (3.72-5.28) 10/14/19 04:37 Hgb 11.2 g/dL (12.0-15.5) L 10/14/19 04:37 Hct 33.8 % (36.0-47.0) L 10/14/19 04:37 MCV 86 fl (80-97) 10/14/19 04:37 MCH 28.5 pg (27.0-33.4) 10/14/19 04:37 MCHC 33.2 g/dL (32.0-36.0) 10/14/19 04:37 RDW 13.3 % (11.5-14.0) 10/14/19 04:37 Plt Count 157 10^3/uL (150-450) 10/14/19 04:37 Sodium 141.1 mmol/L (137-145) 10/12/19 04:37 Potassium 3.7 mmol/L (3.6-5.0) 10/12/19 04:37 Chloride 107 mmol/L (98-107) 10/12/19 04:37 Carbon Dioxide 27 mmol/L (22-30) 10/12/19 04:37 Anion Gap 7 (5-19) 10/12/19 04:37 BUN 13 mg/dL (7-20) 10/12/19 04:37 Creatinine 0.61 mg/dL (0.52-1.25) 10/12/19 04:37 Est GFR ( Amer) > 60 (>60) 10/12/19 04:37 Est GFR (MDRD) Non-Af > 60 (>60) 10/12/19 04:37 Glucose 117 mg/dL (75-110) H 10/12/19 04:37 Calcium 8.4 mg/dL (8.4-10.2) 10/12/19 04:37 Impressions: Knee X-Ray 10/11/19 15:10 IMPRESSION: Status post revision of the total knee arthroplasty. Please refer to the operative report for further discussion. Plan Plan of Treatment: Patient to be transferred to a long term facility for ongoing long term care and physical therapy. Physical therapy is limited to touchdown weightbearing restriction on the right lower extremity and gentle active range of motion. Follow-up with Dr. Abraham and [facility] for surgery in 2 weeks for staple removal. Stroke Is this a Stroke Patient?: No Stroke Pt being discharged on Anti-thrombolytic therapy?: Yes Acute Heart Failure - Is this a Heart Failure Patient?: No
[2019-10-14] MEDS: CYCLOSPORINE 0.05% OPH EMULSIO 0.4 ML DROPERETTE OU SCH ×2 (09:45→21:16)
[2019-10-14] MEDS: GABAPENTIN 300 MG CAPSULE PO SCH ×2 (09:48→21:16)
[2019-10-14] MEDS: PRENATAL VITAMIN W DHA CAPSULE PO SCH (09:51)
[2019-10-14] MEDS: CHOLECALCIFEROL (D3) 1,000 UNIT (25 MCG) TABLET PO SCH (09:52)
[2019-10-14] MEDS: SENNOSIDES/DOCUSATE 8.6-50 MG 1 EACH TABLET PO SCH ×2 (09:53→18:47)
[2019-10-14] MEDS: OXYCODONE HCL SR 10 MG TABLET PO SCH ×2 (09:53→21:16)
[2019-10-14] MEDS: ASPIRIN 81 MG TABLET, CHEWABLE PO SCH (09:55)
[2019-10-14] MEDS: MAGNESIUM OXIDE 400 MG TABLET PO SCH (09:56)
[2019-10-14] MEDS: QUETIAPINE FUMARATE 25 MG TABLET PO SCH (21:16)
[2019-10-14] MEDS: EZETIMIBE 10 MG TABLET PO SCH (21:16)
[2019-10-14] MEDS: TRAZODONE HCL 50 MG TABLET PO SCH (21:16)
[2019-10-14] MEDS: ONDANSETRON HCL INJ/PF 4 MG/2 ML SDV IV PRN (21:17)
[2019-10-15] MEDS: PANTOPRAZOLE SODIUM 40 MG TABLET.DR PO SCH (05:44)
[2019-10-15] MEDS: OXYCODONE HCL IR 5 MG TABLET PO PRN ×3 (05:47→19:42)
[2019-10-15] MEDS: PRENATAL VITAMIN W DHA CAPSULE PO SCH (09:56)
[2019-10-15] MEDS: OXYCODONE HCL SR 10 MG TABLET PO SCH ×2 (09:57→22:08)
[2019-10-15] MEDS: CHOLECALCIFEROL (D3) 1,000 UNIT (25 MCG) TABLET PO SCH (09:57)
[2019-10-15] MEDS: SENNOSIDES/DOCUSATE 8.6-50 MG 1 EACH TABLET PO SCH ×2 (09:57→18:08)
[2019-10-15] MEDS: ASPIRIN 81 MG TABLET, CHEWABLE PO SCH (09:58)
[2019-10-15] MEDS: GABAPENTIN 300 MG CAPSULE PO SCH ×2 (09:58→22:08)
[2019-10-15] MEDS: MAGNESIUM OXIDE 400 MG TABLET PO SCH (09:58)
[2019-10-15] MEDS: CYCLOSPORINE 0.05% OPH EMULSIO 0.4 ML DROPERETTE OU SCH ×2 (09:59→22:08)
[2019-10-15] MEDS: ACETAMINOPHEN 325 MG TABLET PO PRN (19:42)
[2019-10-15] MEDS: TRAZODONE HCL 50 MG TABLET PO SCH (22:08)
[2019-10-15] MEDS: EZETIMIBE 10 MG TABLET PO SCH (22:09)
[2019-10-15] MEDS: QUETIAPINE FUMARATE 25 MG TABLET PO SCH (22:09)
[2019-10-16] MEDS: PANTOPRAZOLE SODIUM 40 MG TABLET.DR PO SCH (05:54)
[2019-10-16] MEDS: OXYCODONE HCL IR 5 MG TABLET PO PRN ×3 (06:06→17:35)
[2019-10-16] MEDS: SENNOSIDES/DOCUSATE 8.6-50 MG 1 EACH TABLET PO SCH ×2 (09:10→17:02)
[2019-10-16] MEDS: PRENATAL VITAMIN W DHA CAPSULE PO SCH (09:10)
[2019-10-16] MEDS: CHOLECALCIFEROL (D3) 1,000 UNIT (25 MCG) TABLET PO SCH (09:10)
[2019-10-16] MEDS: OXYCODONE HCL SR 10 MG TABLET PO SCH ×2 (09:11→21:18)
[2019-10-16] MEDS: GABAPENTIN 300 MG CAPSULE PO SCH ×2 (09:11→21:18)
[2019-10-16] MEDS: CYCLOSPORINE 0.05% OPH EMULSIO 0.4 ML DROPERETTE OU SCH ×2 (09:11→21:18)
[2019-10-16] MEDS: MAGNESIUM OXIDE 400 MG TABLET PO SCH (09:11)
[2019-10-16] MEDS: ASPIRIN 81 MG TABLET, CHEWABLE PO SCH (09:11)
[2019-10-16] MEDS ORDERED: OXYCODONE HCL IR 5 MG TABLET PO PRN (17:22)
--- NOTE | 2019-10-16 20:05 | RADIOLOGY REPORT (SQ) ---
EXAM DESCRIPTION: VENOUS BILATERAL LOWER COMPLETED DATE/TIME: 10/16/2019 4:17 pm REASON FOR STUDY: POSTOP KNEE SURGERY,LEGS SWELLING Z96.652 PRESENCE OF LEFT ARTIFICIAL KNEE JOINT COMPARISON: None. TECHNIQUE: Grayscale and color images acquired of both lower extremity venous systems. Selected spec tral images acquired with additional compression and augmentation maneuvers. Images stored on PACS. LIMITATIONS: Soft tissue edema at the right leg. FINDINGS: RIGHT LEG COMMON FEMORAL AND FEMORAL: Normal phasicity, compression and augmentation of the common femoral vein and proximal femoral vein, the mid and distal femoral vein are not well evaluated due to soft tissue edema. No visualized echogenic material on andino scale. No defects on color images. POPLITEAL: Normal compression and augmentation. No visualized echogenic material on andino scale. No de fects on color images. CALF VESSELS: Suboptimally visualized due to soft tissue edema. No visualized echogenic material on g ray scale. No defects on color image. GSV AND SSV: Normal compression. No visualized echogenic material on andino scale. No defects on color images. ANY DEEP VENOUS INSUFFICIENCY: Not evaluated. ANY EVIDENCE OF POPLITEAL CYST: No. OTHER: No other significant finding. LEFT LEG COMMON FEMORAL AND FEMORAL: Normal phasicity, compression and augmentation. No visualized echogenic m aterial on andino scale. No defects on color images. POPLITEAL: Normal compression and augmentation. No visualized echogenic material on andino scale. No de fects on color images. CALF VESSELS: Normal compression and augmentation. No visualized echogenic material on andino scale. No defects on color images. GSV AND SSV: Normal compression. No visualized echogenic material on andino scale. No defects on color images. ANY DEEP VENOUS INSUFFICIENCY: Not evaluated. ANY EVIDENCE POPLITEAL CYST: No. OTHER: No other significant finding. IMPRESSION: NO EVIDENCE FOR DVT OR SVT IN EITHER LEG. SOFT TISSUE EDEMA AT THE RIGHT LEG. TECHNICAL DOCUMENTATION: JOB ID: [id number] [employer]- All Rights Reserved Reading location - IP/workstation name: [email or web address]
[2019-10-16] MEDS: TRAZODONE HCL 50 MG TABLET PO SCH (21:18)
[2019-10-16] MEDS: EZETIMIBE 10 MG TABLET PO SCH (21:19)
[2019-10-16] MEDS: QUETIAPINE FUMARATE 25 MG TABLET PO SCH (21:19)
[2019-10-17] MEDS: OXYCODONE HCL IR 5 MG TABLET PO PRN ×3 (04:33→17:39)
[2019-10-17] MEDS: PANTOPRAZOLE SODIUM 40 MG TABLET.DR PO SCH (06:52)
--- NOTE | 2019-10-17 07:55 | PDOC PROGRESS REPORT ---
Subjective Progress Note for:: 10/17/19 Reason For Visit: Z96.652 PRESENCE OF LEFT ARTIFICIAL KNEE JOINT 69-year-old white female status post right hip revision arthroplasty. Patient with limited progress with physical therapy and complains of unrelenting pain. Physical Exam Vital Signs: Temp Pulse Resp BP Pulse Ox 37.4 C 92 18 125/59 L 96 10/16/19 20:07 10/16/19 20:07 10/16/19 20:07 10/16/19 20:07 10/16/19 20:07 Intake & Output 10/16/19 10/17/19 10/18/19 06:59 06:59 06:59 Intake Total 1181 3131 Output Total 1000 1600 Balance 181 1531 Weight 117.2 kg Physical Exam: Middle-aged white female lying in bed on the telephone. Patient is in no obvious distress. He is alert, oriented, and appropriate. General appearance: PRESENT: mild distress, severe distress Respiratory exam: PRESENT: unlabored Cardiovascular exam: PRESENT: RRR Pulses: PRESENT: +1 pedal pulses bilateral GI/Abdominal exam: PRESENT: soft Rectal exam: PRESENT: deferred Extremities exam: PRESENT: other - Dressing is removed from the right knee. Wound is well approximately timothy. Its dry and intact. There is a small area medially and distally with some superficial blisters presumably related to the adhesive component in the dressing. Neurological exam: PRESENT: alert, awake, oriented to person, oriented to place, oriented to time, oriented to situation. ABSENT: motor sensory deficit Psychiatric exam: PRESENT: appropriate affect, normal mood. ABSENT: homicidal ideation, suicidal ideation Skin exam: PRESENT: dry, intact, warm. ABSENT: cyanosis, rash Results Laboratory Results: 10/14/19 04:37 10/12/19 04:37 Impressions: Knee X-Ray 10/11/19 15:10 IMPRESSION: Status post revision of the total knee arthroplasty. Please refer to the operative report for further discussion. Venous Doppler Study 10/16/19 00:00 IMPRESSION: NO EVIDENCE FOR DVT OR SVT IN EITHER LEG. SOFT TISSUE EDEMA AT THE RIGHT LEG. Status: Imported from PACS Assessment & Plan - Diagnosis (1) Mechanical complication of internal orthopedic device, implant, and graft Qualifiers: Encounter type: subsequent encounter Qualified Code(s): T84.498D - Other mechanical complication of other internal orthopedic devices, implants and grafts, subsequent encounter Is this a current diagnosis for this admission?: Yes Plan: Patient can continue to work with physical therapy touchdown weightbearing restriction. (2) Febrile Is this a current diagnosis for this admission?: Yes Plan: Single febrile episode presumably related to pulmonary congestion. Patient is encouraged to use the pulmonary flow device - Time Time Spent with patient: 15-24 minutes Anticipated discharge: SNF Within: when bed available
[2019-10-17] MEDS ORDERED: DIAZEPAM 2 MG TABLET PO PRN (08:39)
[2019-10-17] MEDS ORDERED: ZOLPIDEM TARTRATE 5 MG TABLET PO PRN (08:40)
[2019-10-17] MEDS: MAGNESIUM OXIDE 400 MG TABLET PO SCH (09:11)
[2019-10-17] MEDS: GABAPENTIN 300 MG CAPSULE PO SCH ×2 (09:11→21:13)
[2019-10-17] MEDS: SENNOSIDES/DOCUSATE 8.6-50 MG 1 EACH TABLET PO SCH ×2 (09:11→17:36)
[2019-10-17] MEDS: OXYCODONE HCL SR 10 MG TABLET PO SCH ×2 (09:12→21:13)
[2019-10-17] MEDS: ASPIRIN 81 MG TABLET, CHEWABLE PO SCH (09:12)
[2019-10-17] MEDS: PRENATAL VITAMIN W DHA CAPSULE PO SCH (09:12)
[2019-10-17] MEDS: CHOLECALCIFEROL (D3) 1,000 UNIT (25 MCG) TABLET PO SCH (09:12)
[2019-10-17] MEDS: CYCLOSPORINE 0.05% OPH EMULSIO 0.4 ML DROPERETTE OU SCH ×2 (09:13→21:14)
[2019-10-17] MEDS: ONDANSETRON HCL INJ/PF 4 MG/2 ML SDV IV PRN (13:32)
[2019-10-17] MEDS ORDERED: MAGNESIUM HYDROXIDE SUSP 30 ML UDCUP PO PRN (15:08)
[2019-10-17] MEDS: TRAZODONE HCL 50 MG TABLET PO SCH (21:13)
[2019-10-17] MEDS: EZETIMIBE 10 MG TABLET PO SCH (21:14)
[2019-10-17] MEDS: QUETIAPINE FUMARATE 25 MG TABLET PO SCH (21:14)
[2019-10-18] MEDS: PANTOPRAZOLE SODIUM 40 MG TABLET.DR PO SCH (06:01)
[2019-10-18] MEDS: OXYCODONE HCL IR 5 MG TABLET PO PRN ×2 (06:01→15:43)
[2019-10-18] MEDS: GABAPENTIN 300 MG CAPSULE PO SCH ×2 (10:51→21:07)
[2019-10-18] MEDS: OXYCODONE HCL SR 10 MG TABLET PO SCH ×2 (10:51→21:07)
[2019-10-18] MEDS: CYCLOSPORINE 0.05% OPH EMULSIO 0.4 ML DROPERETTE OU SCH ×2 (10:51→21:06)
[2019-10-18] MEDS: ASPIRIN 81 MG TABLET, CHEWABLE PO SCH (10:52)
[2019-10-18] MEDS: MAGNESIUM OXIDE 400 MG TABLET PO SCH (10:52)
[2019-10-18] MEDS: CHOLECALCIFEROL (D3) 1,000 UNIT (25 MCG) TABLET PO SCH (10:52)
[2019-10-18] MEDS: PRENATAL VITAMIN W DHA CAPSULE PO SCH (10:52)
[2019-10-18] MEDS: SENNOSIDES/DOCUSATE 8.6-50 MG 1 EACH TABLET PO SCH ×2 (10:52→18:00)
[2019-10-18] MEDS: QUETIAPINE FUMARATE 25 MG TABLET PO SCH (21:07)
[2019-10-18] MEDS: EZETIMIBE 10 MG TABLET PO SCH (21:07)
[2019-10-18] MEDS: TRAZODONE HCL 50 MG TABLET PO SCH (21:07)
[2019-10-19] MEDS: ACETAMINOPHEN 325 MG TABLET PO PRN (01:18)
[2019-10-19] MEDS: PANTOPRAZOLE SODIUM 40 MG TABLET.DR PO SCH (05:43)
[2019-10-19] MEDS: OXYCODONE HCL IR 5 MG TABLET PO PRN ×2 (05:44→14:42)
--- NOTE | 2019-10-19 07:05 | PDOC PROGRESS REPORT ---
Subjective Progress Note for:: 10/19/19 Reason For Visit: Z96.652 PRESENCE OF LEFT ARTIFICIAL KNEE JOINT 69-year-old white female status post right knee revision arthroplasty and prolonged postoperative course related to pain and limited function. Physical Exam Vital Signs: Temp Pulse Resp BP Pulse Ox 38.3 C H 93 17 103/44 L 93 10/19/19 00:59 10/19/19 00:59 10/19/19 00:59 10/19/19 00:59 10/19/19 00:59 Intake & Output 10/18/19 10/19/19 10/20/19 06:59 06:59 06:59 Intake Total 1552 1241 Output Total 2000 550 Balance -448 691 Weight 114.3 kg 114.3 kg Physical Exam: Overweight middle-aged white female lying in bed complaining of pain. Right lower extremities propped up on a pillow. General appearance: PRESENT: obese Respiratory exam: PRESENT: unlabored Cardiovascular exam: PRESENT: RRR Pulses: PRESENT: +1 pedal pulses bilateral Vascular exam: PRESENT: normal capillary refill GI/Abdominal exam: PRESENT: soft Rectal exam: PRESENT: deferred Musculoskeletal exam: PRESENT: other - Lower extremity incision is well approximated timothy. Wound is clean dry and intact. Minimal distal pedal edema. Neurovascular examination is intact. Neurological exam: PRESENT: alert, awake, oriented to person, oriented to place, oriented to time, oriented to situation. ABSENT: motor sensory deficit Psychiatric exam: PRESENT: appropriate affect, normal mood. ABSENT: homicidal ideation, suicidal ideation Skin exam: PRESENT: dry, intact, warm. ABSENT: cyanosis, rash Results Laboratory Results: 10/14/19 04:37 10/12/19 04:37 Impressions: Knee X-Ray 10/11/19 15:10 IMPRESSION: Status post revision of the total knee arthroplasty. Please refer to the operative report for further discussion. Venous Doppler Study 10/16/19 00:00 IMPRESSION: NO EVIDENCE FOR DVT OR SVT IN EITHER LEG. SOFT TISSUE EDEMA AT THE RIGHT LEG. Status: Imported from PACS Assessment & Plan - Diagnosis (1) Mechanical complication of internal orthopedic device, implant, and graft Qualifiers: Encounter type: subsequent encounter Qualified Code(s): T84.498D - Other mechanical complication of other internal orthopedic devices, implants and grafts, subsequent encounter Is this a current diagnosis for this admission?: Yes Plan: Patient awaiting transfer to a longterm facility. I anticipate less than 30 day need for physical therapy and longterm. Follow-up with Dr. Abraham and [facility] for surgery in 2 weeks for staple removal. (2) Febrile Is this a current diagnosis for this admission?: Yes Plan: Resolved - Time Time Spent with patient: 15-24 minutes Anticipated discharge: SNF Within: when bed available
[2019-10-19] MEDS: MAGNESIUM OXIDE 400 MG TABLET PO SCH (09:11)
[2019-10-19] MEDS: SENNOSIDES/DOCUSATE 8.6-50 MG 1 EACH TABLET PO SCH ×2 (09:11→17:02)
[2019-10-19] MEDS: CYCLOSPORINE 0.05% OPH EMULSIO 0.4 ML DROPERETTE OU SCH (09:11)
[2019-10-19] MEDS: ASPIRIN 81 MG TABLET, CHEWABLE PO SCH (09:11)
[2019-10-19] MEDS: OXYCODONE HCL SR 10 MG TABLET PO SCH (09:11)
[2019-10-19] MEDS: CHOLECALCIFEROL (D3) 1,000 UNIT (25 MCG) TABLET PO SCH (09:11)
[2019-10-19] MEDS: PRENATAL VITAMIN W DHA CAPSULE PO SCH (09:11)
[2019-10-19] MEDS: GABAPENTIN 300 MG CAPSULE PO SCH (09:11)
--- NOTE | 2019-10-19 14:29 | PDOC TRANSFER SUMMARY ---
Impression - Admit/DC Date/PCP Admission Date/Primary Care Provider: 10/11/19 07:57 DIANA SAWYER MD Discharge Date: 10/19/19 - Discharge Diagnosis (1) Mechanical complication of internal orthopedic device, implant, and graft Is this a current diagnosis for this admission?: Yes (2) Febrile Is this a current diagnosis for this admission?: Yes - Additional Information Resuscitation Status: Full Code Discharge Diet: Regular Discharge Activity: Balance Activity w/Rest, No tub bath, Other - Touchdown weightbearing restriction right lower extremity Referrals: [facility] [Outside] ANISH ELIAS MD [ACTIVE STAFF] - 10/26/19 10:30 am Prescriptions: Oxycodone HCl [Oxy-Ir 5 mg Tablet] 5 mg PO Q6HP PRN #40 tablet PRN Reason: Aspirin [Adult Low Dose Aspirin EC] 81 mg PO DAILY #12 tablet.dr Home Medications: Albuterol Sulfate [Proair HFA Inhalation Aerosol 8.5 gm MDI] 2 puff IH Q6HP PRN 10/11/19 Aspirin [Aspirin 81 mg Chewable Tablet] 81 mg PO DAILY 10/11/19 Cholecalciferol (Vitamin D3) [Vitamin D3 1000 Unit Tablet] 1,000 unit PO DAILY 10/11/19 Cyclosporine 0.05% Oph Emulsio [Restasis 0.05% Oph Emulsion Pf 0.4 ml] 1 drop OU Q12 10/11/19 Diazepam [Valium 2 mg Tablet] 1 mg PO DAILYP PRN 10/11/19 Ezetimibe [Zetia 10 mg Tablet] 10 mg PO QHS 10/11/19 Furosemide [Lasix 20 mg Tablet] 20 mg PO DAILYP PRN 10/11/19 Gabapentin [Neurontin 300 mg Capsule] 300 mg PO Q12 10/11/19 Lubiprostone [Amitiza 24 Mcg Capsule] 24 mcg PO BIDP PRN 10/11/19 Magnesium Oxide [Mag-Ox 400 mg Tablet] 400 mg PO DAILY 10/11/19 Meclizine HCl [Antivert 25 mg Tablet] 25 mg PO BIDP PRN 10/11/19 Multivitamin [Tab-A-Angely (Multiple Vitamin) Tablet] 1 tab PO DAILY 10/11/19 Nitroglycerin [Nitrostat 0.4 mg (1/150 Gr) Tabs 25/Bottle] 1 tab SL Q5MP PRN 10/11/19 [place]-3 Acid Ethyl Esters [Lovaza 1 gm Capsule] 1 gm PO DAILY 10/11/19 Ondansetron [Zofran Odt 4 mg Tablet] 4 mg PO Q6HP PRN 10/11/19 Potassium Chloride [Klor-Con 10 Meq Capsule ER] 20 meq PO DAILY 10/11/19 Quetiapine Fumarate [Seroquel 25 mg Tablet] 25 mg PO QHS 10/11/19 Tramadol HCl [Ultram 50 mg Tablet] 50 mg PO BIDP PRN 10/11/19 Trazodone HCl [Desyrel] 75 mg PO QHS 10/11/19 Aspirin [Adult Low Dose Aspirin EC] 81 mg PO DAILY #12 tablet. 10/14/19 Oxycodone HCl [Oxy-Ir 5 mg Tablet] 5 mg PO Q6HP PRN #40 tablet 10/14/19 History of Present Illiness History of Present Illness: 69 yo WF with mechanical failure R TKA Hospital Course Hospital Course: The patient is admitted through the operating where she undergoes a relatively complicated right knee revision arthroplasty involving removal of an extensively cemented stemmed component as well as tantalum metal ingrowth components. A rotating-hinge knee arthroplasty is implanted. She is returned to the floor in satisfactory condition. Significant problems with pain control initially because she refused the administration of OxyContin initially. Once the OxyContin had been supplied her pain control seems to be better. She is also demonstrated a single febrile episode 102.5 Fahrenheit. Progress with physical therapy has been restricted to a touchdown weightbearing basis and has been relatively limited. There have been no significant evetns since summary dictated on 10/14/2019 Physical Exam Vital Signs: Temp Pulse Resp BP Pulse Ox 37.5 C 80 12 106/52 L 90 L 10/19/19 11:11 10/19/19 11:11 10/19/19 11:11 10/19/19 11:11 10/19/19 11:11 Intake & Output 10/18/19 10/19/19 10/20/19 06:59 06:59 06:59 Intake Total 1552 1241 1205 Output Total 2000 550 Balance -258 585 1230 Weight 114.3 kg 114.3 kg Results Laboratory Results: WBC 7.1 10^3/uL (4.0-10.5) 10/14/19 04:37 RBC 3.93 10^6/uL (3.72-5.28) 10/14/19 04:37 Hgb 11.2 g/dL (12.0-15.5) L 10/14/19 04:37 Hct 33.8 % (36.0-47.0) L 10/14/19 04:37 MCV 86 fl (80-97) 10/14/19 04:37 MCH 28.5 pg (27.0-33.4) 10/14/19 04:37 MCHC 33.2 g/dL (32.0-36.0) 10/14/19 04:37 RDW 13.3 % (11.5-14.0) 10/14/19 04:37 Plt Count 157 10^3/uL (150-450) 10/14/19 04:37 Sodium 141.1 mmol/L (137-145) 10/12/19 04:37 Potassium 3.7 mmol/L (3.6-5.0) 10/12/19 04:37 Chloride 107 mmol/L (98-107) 10/12/19 04:37 Carbon Dioxide 27 mmol/L (22-30) 10/12/19 04:37 Anion Gap 7 (5-19) 10/12/19 04:37 BUN 13 mg/dL (7-20) 10/12/19 04:37 Creatinine 0.61 mg/dL (0.52-1.25) 10/12/19 04:37 Est GFR ( Amer) > 60 (>60) 10/12/19 04:37 Est GFR (MDRD) Non-Af > 60 (>60) 10/12/19 04:37 Glucose 117 mg/dL (75-110) H 10/12/19 04:37 Calcium 8.4 mg/dL (8.4-10.2) 10/12/19 04:37 Impressions: Knee X-Ray 10/11/19 15:10 IMPRESSION: Status post revision of the total knee arthroplasty. Please refer to the operative report for further discussion. Venous Doppler Study 10/16/19 00:00 IMPRESSION: NO EVIDENCE FOR DVT OR SVT IN EITHER LEG. SOFT TISSUE EDEMA AT THE RIGHT LEG. Plan Plan of Treatment: Patient to be transferred to a long-term facility for ongoing long-term care and physical therapy. Physical therapy is limited to touchdown weightbearing restriction on the right lower extremity and gentle active range of motion. Follow-up with Dr. Elias and [facility] for surgery in 2 weeks for staple removal. Stroke Is this a Stroke Patient?: No Stroke Pt being discharged on Anti-thrombolytic therapy?: Yes Acute Heart Failure - Is this a Heart Failure Patient?: No
[2019-10-19] MEDS ORDERED: LUBIPROSTONE 24 MCG CAPSULE PO ONE (15:15)
[2019-10-19 17:02] VITALS: BP 109/60
== END 2019-10-19 20:00 | DRG 468 ==
LOC: INOR 07:57 → 4N 14:23
PROVIDERS: ADMIT Orthopaedic Surgery; ATTEND Orthopaedic Surgery
PROC: 0SRC0J9 Replacement of Right Knee Joint with Synthetic Substitute, Cemented, Open Approach (ICD-10-PCS; 2019-10-11)
PROC: 0SPC0JZ Removal of Synthetic Substitute from Right Knee Joint, Open Approach (ICD-10-PCS; principal; 2019-10-11 10:00)
DX: T84.092A Other mechanical complication of internal right knee prosthesis, initial encounter (principal); I48.91 Unspecified atrial fibrillation; E78.5 Hyperlipidemia, unspecified; F31.9 Bipolar disorder, unspecified; F41.9 Anxiety disorder, unspecified; Z98.84 Bariatric surgery status; Z79.82 Long term (current) use of aspirin; Z79.891 Long term (current) use of opiate analgesic; Z79.51 Long term (current) use of inhaled steroids; Z79.899 Other long term (current) drug therapy
CPT/HCPCS: 01402; 36415; 80048; 84132; 85027; 87070; 87075; 87205; 93970; C1713; C1769; C1776; J0171; J0690; J1200; J1741; J2250; J2405; J2704; J3010; J3370; J3490; J7050; J7060; J7120; L1830; S0119

== ENCOUNTER → 2019-12-21 | Outpatient (CLI) | payer MEDICARE, MEDICAID ==
[2019-12-21 11:49] LABS: ALBUMIN 4.5 g/dL (3.5-5.0); ALKALINE PHOSPHATASE 119 U/L (38-126); ANION GAP 12 (5-19); ASPARTATE AMINO TRANSFERASE 40 U/L (14-36); BILIRUBIN,DIRECT 0.3 mg/dL (0.0-0.4); BILIRUBIN,TOTAL 0.5 mg/dL (0.2-1.3); BLOOD UREA NITROGEN 15 mg/dL (7-20); CALCIUM 10.4 mg/dL (8.4-10.2); CARBON DIOXIDE 28 mmol/L (22-30); CHLORIDE 102 mmol/L (98-107); CHOLESTEROL 165.59 mg/dL (0-200); GLUCOSE 104 mg/dL (75-110); POTASSIUM 4.6 mmol/L (3.6-5.0); TRIGLYCERIDES 163 mg/dL (<150)
[2019-12-21 11:59] LABS: DIRECT LDL 108 mg/dL (<100)
[2019-12-21 12:06] LABS: VLDL CHOLESTEROL 32.6 mg/dL (10-31)
== END ==
LOC: OD 10:33
PROVIDERS: ATTEND Physician Assistant
DX: E78.2 Mixed hyperlipidemia (principal); I10 Essential (primary) hypertension; Z79.899 Other long term (current) drug therapy
CPT/HCPCS: 36415; 80048; 80061; 80076

== ENCOUNTER → 2020-01-27 | Outpatient (CLI) | payer MEDICARE, MEDICAID ==
--- NOTE | 2020-01-27 11:53 | WOMENS IMAGING REPORT ---
EXAM DESCRIPTION: 3D DX MAMMO BILAT; U/S BREAST UNILAT LIMITED COMPLETED DATE/TIME: 01/27/2020 10:17 am; 01/27/2020 11:00 am REASON FOR STUDY: N64.89 OTHER SPECIFIED DISORDERS OF BREAST; N64.89 LEFT BREAST N64.89 OTHER SPECI FIED DISORDERS OF BREAST COMPARISON: 2017 EXAM PARAMETERS: Standard craniocaudal and mediolateral oblique views of each breast recorded using digital acquisition and breast tomosynthesis. Additional true lateral view. Additional exaggerated CC view. Read with the assistance of CAD: .[facility] - [employer] Version 9.2 LIMITATIONS: None. FINDINGS: RIGHT BREAST MASSES: No suspicious masses. CALCIFICATIONS: No new or suspicious calcifications. ARCHITECTURAL DISTORTION: None. ASYMMETRY: None noted. OTHER: No other significant findings. LEFT BREAST MASSES: No suspicious masses. CALCIFICATIONS: No new or suspicious calcifications. ARCHITECTURAL DISTORTION: None. ASYMMETRY: None noted. OTHER: No other significant finding. BREAST ULTRASOUND: TECHNIQUE: Static and dynamic grayscale images acquired of the left breast in the specific areas of c linical/mammographic concern. Selected color Doppler images recorded. ELASTOGRAPHY PERFORMED: No. LIMITATIONS: None. FINDINGS: MASS: There is no focal ill-defined subcutaneous asymmetry just beneath the skin at the site of palpa ble concern and adjacent to the bruise. This is likely a developing oil cyst related to trauma. Mile sures 1.3 cm. ELASTOGRAPHY CHARACTERISTICS: Not applicable. OTHER: No other significant finding. IMPRESSION: No significant finding on mammography. Probable developing oil cyst on ultrasound. BREAST DENSITY: a. The breasts are almost entirely fatty. BIRAD: ASSESSMENT: 3 Probably benign finding. Initial short-interval follow-up suggested. RECOMMENDATION: RECOMMENDED FOLLOW UP: Birads 3: The patient will return in 3 months for follow-up i rick. Ultrasound only SPECIFIC INTERVENTION/IMAGING/CONSULTATION RECOMMENDED:No additional intervention/ imaging/consultati on needed at this time. COMMUNICATION:The patient will receive a follow-up letter. COMMENT: The patient has been notified of the results by letter per MQSA requirements. Additional no tification policies are in place for contacting patient with suspicious or incomplete findings. Quality ID #[id number]: The [employer] recommends an annual screening mammogram for women aged 40 years or over. This facility utilizes a reminder system to ensure that all patients receive reminder letters, and/or direct phone calls for appointments. This includes reminders for routine scr eening mammograms, diagnostic mammograms, or other Breast Imaging Interventions when appropriate. Th is patient will be placed in the appropriate reminder system. TECHNICAL DOCUMENTATION: FINDING NUMBER: (1) ASSESSMENT: (1) JOB ID: [id number] 2010 [employer] All Rights Reserved Reading location - IP/workstation name: [email or web address]
== END ==
LOC: WI 09:54
PROVIDERS: ATTEND Family Medicine
DX: N64.89 Other specified disorders of breast (principal)
CPT/HCPCS: 76642; 77066; G0279; 77062

== ENCOUNTER → 2020-03-22 | Outpatient (CLI) | payer MEDICARE, MEDICAID ==
[2020-03-22 10:59] LABS: ALBUMIN 4.3 g/dL (3.5-5.0); ALKALINE PHOSPHATASE 101 U/L (38-126); ASPARTATE AMINO TRANSFERASE 27 U/L (14-36); BILIRUBIN,TOTAL 0.5 mg/dL (0.2-1.3); BLOOD UREA NITROGEN 14 mg/dL (7-20); CHOLESTEROL 185.48 mg/dL (0-200); GLUCOSE 99 mg/dL (75-110); POTASSIUM 4.7 mmol/L (3.6-5.0); TOTAL PROTEIN 7.1 g/dL (6.3-8.2); TRIGLYCERIDES 155 mg/dL (<150)
[2020-03-22 11:04] LABS: CARBON DIOXIDE 34 mmol/L (22-30); CHLORIDE 102 mmol/L (98-107)
[2020-03-22 11:07] LABS: ANION GAP 4 (5-19)
[2020-03-22 11:09] LABS: DIRECT LDL 125 mg/dL (<100)
== END ==
LOC: OD 10:21
PROVIDERS: ATTEND Internal Medicine Cardiovascular Disease
DX: E78.2 Mixed hyperlipidemia (principal); I10 Essential (primary) hypertension; E87.2 Acidosis; R94.5 Abnormal results of liver function studies; Z79.899 Other long term (current) drug therapy
CPT/HCPCS: 36415; 80048; 80061; 80076

== ENCOUNTER → 2020-05-05 | Outpatient (CLI) | payer MEDICARE, MEDICAID ==
[2020-05-05 14:33] LABS: ANION GAP 6 (5-19); BLOOD UREA NITROGEN 15 mg/dL (7-20); CALCIUM 9.8 mg/dL (8.4-10.2); CARBON DIOXIDE 29 mmol/L (22-30); CHLORIDE 105 mmol/L (98-107); GLUCOSE 106 mg/dL (75-110); POTASSIUM 4.5 mmol/L (3.6-5.0)
== END ==
LOC: OD 13:44
PROVIDERS: ATTEND Physician Assistant
DX: I10 Essential (primary) hypertension (principal); Z79.899 Other long term (current) drug therapy
CPT/HCPCS: 36415; 80048

== ENCOUNTER → 2020-07-27 | Day surgery (SDC) | payer MEDICARE, MEDICAID ==
[~2020-07-27] MED LIST changes: +BUPIVACAINE HCL 0.5 % INJ/PF 30 ML SDV ONE; -BUPIVACAINE INJ/PF LIPOSOME/PF 266 MG/20 ML SDV INJ PRN; -CEFAZOLIN INJ 1 GM VIAL IV PRN; -IBUPROFEN 800 MG in NORMAL SALINE 250 ML IV PRN; -LACTATED RINGERS 1000 ML IV PRN; -LIDOCAINE 0.5% INJ-PF (5 MG/ML) 50 ML SDV SUBCUT PRN; +LIDOCAINE 1% INJ-PF (10 MG/ML) 30 ML SDV ONE; -OXYCODONE HCL SR 10 MG TABLET PO PRN; -PANTOPRAZOLE SODIUM 20 MG TABLET.DR PO PRN; -VANCOMYCIN HCL 1,000 MG in DEXTROSE 5%-WATER 250 ML IV PRN
--- NOTE | 2020-07-27 08:18 | Operative Report ---
PROCEDURE: KNEE RADIOFREQUENCY right under ultrasound guidance Preoperative Diagnosis: Right knee osteoarthritis Postoperative Diagnosis: Right knee osteoarthritis 1. Superolateral genicular branch from the vastus lateralis 2. Superomedial genicular branch from the vastus medialis 3. Inferomedial genicular branch from the saphenous nerve 4. Medial retinacular branch from the vastus intermedius DATE OF PROCEDURE: July 27, 2020 ANESTHESIA: Local anesthesia COMPLICATIONS: None reported PROCEDURE IN DETAIL: Hx/PE/meds/allergies/applicable labs reviewed. No changes and no contraindications were found. Full description of the procedure was provided including benefits as well as possible complications including transient increased pain, stomach irritation, mood alteration, transient weakness or parasthesias as well as more serious nerve injury, bleeding, infection or allergic reaction. Informed consent was obtained and documented. The patient was brought to the procedure room and placed on the exam table in a comfortable supine position. The place for needle placement was obtained by manual palpation with ultrasound confirmation. The sterile field was prepared by chloroprep and sterile drapes. Local anesthesia superficial and deep was provided by local infiltration of 2% lidocaine. A 17g 75 mm radiofrequency introducer needle with a 4 mm active tip was placed overlying the right knee joint and using ultrasound guidance the needle was advanced to a bony endpoint on the superiolateral portion of the femoral condyle of the right knee. A second needle was advanced to a bony endpoint on the superiomedial portion of the femoral condyle. A third needle was then placed over the inferiomedial portion of the tibial condyle until a bony endpoint was met. 4th needle placed 3mm above the patella with the tip in contact with the Medial retinacular branch from the vastus intermedius. Attempted aspiration yielded no blood. Transverse ultrasound views showed all the needles at 50% depth of the femur and tibia. Motor stimulation was tested at 2.0 volts with no leg movement. Images were saved in AP and lateral. A mixture consisting of 0.5% bupivacaine was slowly injected. Then a radiofrequency ablation of each of the geniculate nerves were done at 80 degrees Celsius for 2 minutes and 30 seconds each. The needles were withdrawn. The patient tolerated the procedure well. After observation the patient was discharged with instructions and follow up. They were also provided contact information to call regarding any concerning symptoms or questions. IMPRESSION: 1. Successful geniculate right knee radiofrequency ablation was performed. 2. The patient was given prescription of home medicines. 3. RTC in 1-2 week(s).
== END ==
LOC: RAD 07:47
PROVIDERS: ATTEND Family Medicine
DX: M17.11 Unilateral primary osteoarthritis, right knee (principal)
CPT/HCPCS: 64624; J3490 ×2

== ENCOUNTER → 2020-08-16 | Outpatient (CLI) | payer MEDICARE, MEDICAID ==
[2020-08-16 14:50] LABS: ANION GAP 6 (5-19); BLOOD UREA NITROGEN 15 mg/dL (7-20); CALCIUM 9.3 mg/dL (8.4-10.2); CARBON DIOXIDE 22 mmol/L (22-30); CHLORIDE 111 mmol/L (98-107); CHOLESTEROL 153.38 mg/dL (0-200); GLUCOSE 99 mg/dL (75-110); POTASSIUM 4.1 mmol/L (3.6-5.0); TRIGLYCERIDES 142 mg/dL (<150)
[2020-08-16 15:00] LABS: DIRECT LDL 95 mg/dL (<100)
[2020-08-17 15:24] LABS: ALBUMIN 3.7 g/dL (3.5-5.0); ALKALINE PHOSPHATASE 106 U/L (38-126); ASPARTATE AMINO TRANSFERASE 32 U/L (14-36); BILIRUBIN,DIRECT 0.2 mg/dL (0.0-0.4); BILIRUBIN,TOTAL 0.4 mg/dL (0.2-1.3); TOTAL PROTEIN 6.3 g/dL (6.3-8.2)
== END ==
LOC: OD 13:30
PROVIDERS: ATTEND Internal Medicine Cardiovascular Disease
DX: I10 Essential (primary) hypertension (principal); E78.2 Mixed hyperlipidemia; R00.2 Palpitations; Z79.899 Other long term (current) drug therapy
CPT/HCPCS: 36415; 80048; 80061; 80076